=== PATIENT | female | born 1970 | race Caucasian/White ===

== ENCOUNTER 2019-08-21 12:01 | Outpatient (CLI) | payer BC ==
[~2019-08-21] VITALS: Ht 162.6 cm; Wt 97.7 kg
[2019-08-21] MEDS ORDERED: bcp PO (13:15)
[2019-08-21] MEDS ORDERED: VORT10TA PO (13:15)
[2019-08-21] MEDS ORDERED: ROPI0.5T4 PO (13:15)
[2019-08-21] MEDS ORDERED: ADAL40PE2 SQ (13:15)
[2019-08-21] MEDS ORDERED: PANT40TA3 PO (13:15)
== END 2019-08-21 14:03 | disposition home or self-care (01) ==
LOC: PREOP 12:01
PROVIDERS: ATTEND Otolaryngology Otolaryngology/Facial Plastic Surgery
DX: Z01.818 Encounter for other preprocedural examination (principal)

== ENCOUNTER 2019-08-21 12:05 | Outpatient (CLI) | payer BC ==
[2019-08-21] MEDS ORDERED: NS 100 ML (IVPB) BAG IV ONE (12:15)
[2019-08-21] MEDS ORDERED: IOHEXOL 350 MG/ML 100 ML (OMNIPAQUE 350) VIAL IV ONE (12:15)
[2019-08-21] MEDS ORDERED: HOLD METFORMIN - RECEIVED CONTRAST 20 ML VIAL IV SCH (12:15)
[2019-08-21] MEDS ORDERED: CATHETER FLUSH 10 ML SYR IV PRN (12:15)
[2019-08-21 12:37] LABS: BASOPHILS # (AUTO) 0.1 10^3/uL (0.0-0.1); BASOPHILS % (AUTO) 0 % (0-10); EOSINOPHILS # (AUTO) 0.2 10^3/uL (0.0-0.3); EOSINOPHILS % (AUTO) 1 % (0-10); HEMATOCRIT 42 % (35-52); HEMOGLOBIN 14.2 G/DL (11.5-16.0); LYMPHOCYTES # (AUTO) 3.2 X 10^3 (1.0-4.0); LYMPHOCYTES % (AUTO) 25 % (12-44); MEAN CORPUSCULAR HEMOGLOBIN 31 PG (25-34); MEAN CORPUSCULAR HGB CONC 34 G/DL (32-36); MEAN CORPUSCULAR VOLUME 90 FL (80-99); MEAN PLATELET VOLUME 9.7 FL (7.4-10.4); MONOCYTES # (AUTO) 0.8 X 10^3 (0.0-1.0); MONOCYTES % (AUTO) 6 % (0-12); NEUTROPHILS # (AUTO) 8.4 X 10^3 (1.8-7.8); NEUTROPHILS % (AUTO) 67 % (42-75); PLATELET COUNT 279 10^3/uL (130-400); RED CELL DISTRIBUTION WIDTH 13.1 % (10.0-14.5); WHITE BLOOD COUNT 12.5 10^3/uL (4.3-11.0)
[2019-08-21 12:53] LABS: BUN/CREATININE RATIO 11; CALCIUM 8.8 MG/DL (8.5-10.1); CARBON DIOXIDE 21 MMOL/L (21-32); CHLORIDE 108 MMOL/L (98-107); CREATININE SERUM 0.76 MG/DL (0.60-1.30); GFR ESTIMATED > 60; GLUCOSE 125 MG/DL (70-105); POTASSIUM 3.7 MMOL/L (3.6-5.0); SODIUM 139 MMOL/L (135-145)
--- NOTE | 2019-08-21 12:55 | Diagnostic Imaging Report ---
Indication: Nasal mass. Time of exam 12:58 PM No prior studies are available for comparison. The heart size is normal. The pulmonary vascularity is unremarkable. The lungs are clear. No infiltrate, effusion or pneumothorax is detected. Impression: No acute cardiopulmonary process is detected. Dictated by: Dictated on workstation # [id number]
[2019-08-21] MEDS ORDERED: VORT10TA PO (13:15)
[2019-08-21] MEDS ORDERED: ADAL40PE2 SQ (13:15)
[2019-08-21] MEDS ORDERED: ROPI0.5T4 PO (13:15)
[2019-08-21] MEDS ORDERED: PANT40TA3 PO (13:15)
[2019-08-21] MEDS ORDERED: bcp PO (13:15)
--- NOTE | 2019-08-21 13:15 | Diagnostic Imaging Report ---
PROCEDURE: CT Sinus w/o Contrast. TECHNIQUE: Multiple contiguous axial images were obtained through the sinuses without the use of intravenous contrast. Coronal reformations were performed. All CT scans use one or more of the following dose optimizing techniques: automated exposure control, MA and/or KvP adjustment based on a patient size and exam type, or iterative reconstruction. INDICATION: Nasal mass. Severe otitis media. COMPARISON: None FINDINGS: No evidence of mucosal thickening or fluid levels in the paranasal sinuses. The ostiomeatal complexes are patent. The sphenoethmoid and frontoethmoid recesses are patent and unremarkable. Bilateral iram bullosa of the middle turbinates is noted. Fluid is seen throughout the right mastoid air cells and right middle ear. The left mastoid air cells are well pneumatized. Retained secretions are seen within the nasopharynx. No discrete soft tissue mass is visualized. Prominent cervical lymph nodes are seen bilaterally. The bony nasal septum is slightly deviated to the left. No acute facial fractures. The globes and orbits are symmetric and unremarkable. Included intracranial contents show no acute abnormalities. IMPRESSION: 1. Otomastoiditis on the right. No evidence of coalescent mastoiditis. No associated soft tissue component is seen. 2. Retained secretions within the nasopharynx. 3. No evidence of acute sinusitis. Dictated by: Dictated on workstation # [id number]
== END 2019-08-21 13:35 ==
LOC: RAD 12:05
PROVIDERS: ATTEND Otolaryngology Otolaryngology/Facial Plastic Surgery
DX: H65.90 Unspecified nonsuppurative otitis media, unspecified ear (principal); H92.09 Otalgia, unspecified ear; H70.91 Unspecified mastoiditis, right ear; J34.9 Unspecified disorder of nose and nasal sinuses
CPT/HCPCS: 36415; 70487; 71045; 80048; 85025

== ENCOUNTER 2019-08-23 09:25 | Day surgery (SDC) | payer BC ==
[~2019-08-23] VITALS: Ht 162.5 cm; Wt 97.7 kg
[2019-08-23] VITALS (10 sets, daily range): BP systolic 101–139; BP diastolic 53–85
[~2019-08-23 09:25] MED LIST: ADAL40PE2 SQ; HOLD METFORMIN - RECEIVED CONTRAST 20 ML VIAL IV SCH; IOHEXOL 350 MG/ML 100 ML (OMNIPAQUE 350) VIAL IV ONE; NS 100 ML (IVPB) BAG IV ONE; PANT40TA3 PO; ROPI0.5T4 PO; VORT10TA PO; bcp PO
[2019-08-23] MEDS ORDERED: LACTATED RINGERS 1,000 ML IV PRN (09:41)
[2019-08-23] MEDS ORDERED: proPOfol 200 MG/20 ML (DIPRIVAN) VIAL IV ONE (10:51)
[2019-08-23] MEDS ORDERED: ROCURONIUM 10 MG/ML 5 ML SYRINGE IV ONE (10:51)
[2019-08-23] MEDS ORDERED: ONDANSETRON 4 MG/2 ML (SDV) Z0FRAN ONE (10:51)
[2019-08-23] MEDS ORDERED: fentaNYL INJECTION 100 MCG/2 ML AMP ONE (10:52)
[2019-08-23] MEDS ORDERED: LIDOCAINE PF 2% 5 ML (XYLOCAINE) VIAL ONE (10:52)
[2019-08-23] MEDS ORDERED: MIDAZOLAM 2 MG/2 ML (VERSED) VIAL ONE (10:52)
[2019-08-23] MEDS ORDERED: LIDOCAINE/EPI 1%-1:100,000 (XYLOCAINE) 20ML ONE (11:03)
[2019-08-23] MEDS ORDERED: MUPIROCIN 2% OINT 22 GM (BACTROBAN) TUBE ONE (11:03)
--- OUTSIDE RECORDS SUMMARY | 2019-08-23 11:03 | XMS REPORT ---
Author Lindsey Riley Organization [facility] Address [address] [place], [place] [id number] Care Team Providers Care Television Presenter Name Role Phone Rachael Cuellar PCP Kasi Colon PreferredProvider Allergies and Adverse Reactions Name Reaction Notes NO KNOWN DRUG ALLERGIES Plan of Treatment Planned Activity Comments Planned Date Planned Time Plan/Goal Basic metabolic profile 05/13/2015 12:00 AM Chronic hoarseness and nasal cingestion 07/24/2019 1 0:30 AM Medications Active Name Start Date Estimated Completion Date SIG Co mments Humira Pen 40 mg/0.8 mL subcutaneous pen injector kit inject 0.8 milliliter (40 mg) by subcutaneous route every 2 weeks Lialda 1.2 gram oral tablet,delayed release (DR/EC) 08/01/2016 TAKE 4 TABS BY MOUTH DAILY WITH BREAKFAST. SWALLOW WHOLE; DO NOT BREAK, CHEW OR CRUSH. ADMINISTER WITH A MEAL. pantoprazole 40 mg oral tablet,delayed release (DR/EC) 02/28/2019 TAKE 1 TABLET BY MOUTH ONCE A DAY mupirocin 2 % topical ointment 03/20/2019 a pply to affected area by external route 2 times a day Apri 0.15-0.03 mg oral tablet 06/10/2019 ta ke 1 tablet by oral route once daily for 28 days fluticasone propionate 50 mcg/actuation nasal spray,suspension spray 1 - 2 sprays (50 - 100 mcg) in each nostril by intranasal route once daily as needed Trintellix 10 mg oral tablet 06/14/2019 06/08/2020 sirena e 1 tablet (10 mg) by oral route once daily at the same time each day for 30 days montelukast 10 mg oral tablet 06/14/2019 ta ke 1 tablet (10 mg) by oral route once daily in the evening Sudogest 30 mg oral tablet 07/05/2019 take 2 tablets (60 mg) by oral route every 6 hours as needed phentermine 37.5 mg oral tablet 07/08/2019 08/07/2019 take 1 tablet (37.5 mg) by oral route once daily before breakfast for 30 days ropinirole 0.5 mg oral tablet 07/31/2019 ta ke 1 tablet (0.5 mg) by oral route 1-3 hours before bedtime Augmentin 875-125 mg oral tablet 08/05/2019 08/12/2019 take 1 tablet by oral route every 12 hours for 7 days Name Start Date Expiration Date SIG Comments Bactrim DS 800-160 mg oral tablet 07/21/2009 07/31/2009 take 1 tablet by oral route every 12 hours for 10 days Cipro 250 mg oral tablet 02/19/2010 02/22/2010 take 1 tablet (250 mg) by oral route 2 times a day for 3 days phentermine 37.5 mg oral tablet 07/21/2010 08/20/2010 take 1 tablet (37.5 mg) by oral route once daily before breakfast for 30 daysDx: Short term weight loss Cipro 500 mg oral tablet 07/21/2010 07/28/2010 take 1 tablet (500 mg) by oral route every 12 hours for 7 days Bactrim DS 800-160 mg oral tablet 09/23/2010 10/03/2010 take 1 tablet by oral route every 12 hours for 10 days phentermine 37.5 mg oral tablet 06/21/2012 07/21/2012 take 1 tablet (37.5 mg) by oral route once daily before breakfast for 30 daysDx: Short term weight loss Tri-Sprintec (28) 0.18/0.215/0.25 mg-35 mcg (28) oral tablet 06/21/2012 07/19/2012 TAKE 1 TABLET BY MOUTH ONCE A DAY Provera 10 mg oral tablet 09/13/2013 09/18/2013 take 1 tablet (10 mg) by oral route once daily for 5 days metronidazole 500 mg oral tablet 10/01/2013 take 4 tablets (2 gram) by oral route once Cortenema 100 mg/60 mL rectal enema 12/27/2013 12/31/2013 insert 60 milliliters (100 mg) by rectal route once daily for 4 days Reglan 10 mg oral tablet 02/10/2014 02/15/2014 take 1 tablet (10 mg) by oral route 4 times per day 30 minutes before meals and at bedtime for 5 days Apriso 0.375 gram oral capsule,extended release 24hr 02/24/2014 03/26/2014 take 4 capsules (1,500 mg) by oral route once daily in the morning for 30 days Azulfidine 500 mg oral tablet 04/07/2014 05/05/2014 ta ke 2 tablets by oral route 3 times a day for 14 days Cipro 500 mg oral tablet 04/11/2014 04/16/2014 take 1 tablet (500 mg) by oral route every 12 hours for 5 days Bactrim DS 800-160 mg oral tablet 05/08/2014 05/15/2014 take 1 tablet by oral route every 12 hours for 7 days omeprazole 40 mg oral capsule,delayed release(DR/EC) 03/23/2015 07/21/2015 take 1 capsule (40 mg) by oral route once daily before a meal for 30 days Switched to Pantoprazole zolpidem 5 mg oral tablet 04/14/2015 05/14/2015 take 1 .5 tablets by oral route once a day (at bedtime) for 30 days Zithromax Z-Jona 250 mg oral tablet 05/19/2015 05/24/2015 take 2 tablets (500 mg) by oral route once daily for 1 day then 1 tablet (250 mg) by oral route once daily for 4 days metoclopramide HCl 10 mg oral tablet 11/24/2015 12/24/2015 take 1 tablet by oral route 3 times a day (before meals) for 30 days Flagyl 500 mg oral tablet 12/08/2015 12/13/2015 take 1 tablet (500 mg) by oral route every 12 hours for 5 days Ciloxan 0.3 % ophthalmic drops 02/05/2016 02/07/2016 i nstill 2 drops into affected eye(s) by ophthalmic route 4 times a day for 5 days amoxicillin-pot clavulanate 500-125 mg oral tablet 06/15/2016 06/25/2016 take 1 tablet by oral route every 12 hours for 10 days Trintellix 10 mg oral tablet 11/01/2016 12/01/2016 sirena e 1 tablet (10 mg) by oral route once daily at the same time each day for 30 days Xanax 0.5 mg oral tablet 11/01/2016 12/01/2016 12 to 1 twice daily as needed for anxiety must last 30 days Bactrim DS 800-160 mg oral tablet 01/31/2017 02/14/2017 take 1 tablet by oral route every 12 hours for 14 days phentermine 37.5 mg oral tablet 05/08/2017 06/07/2017 take 1 tablet (37.5 mg) by oral route once daily before breakfast for 30 days sulfamethoxazole-trimethoprim 800-160 mg oral tablet 12/25/2017 01/01/2018 take 1 tablet by oral route every 12 hours for 7 days prednisone 20 mg oral tablet 03/11/2018 03/16/2018 sirena e 2 tablet by oral route once daily amoxicillin-pot clavulanate 500-125 mg oral tablet 04/09/2018 04/16/2018 take 1 tablet by oral route every 12 hours for 7 days nystatin 100,000 unit/mL oral suspension 05/11/2018 018 take 5 milliliters (500,000 unit) by oral route 4 times per day for 14 days amoxicillin 500 mg oral tablet 05/18/2018 05/25/2018 t blanca 1 tablet (500 mg) by oral route every 12 hours for 7 days Vyvanse 50 mg oral capsule 06/14/2018 07/14/2018 take 1 capsule (50 mg) by oral route once daily in the morning for 30 days Zofran 4 mg oral tablet 07/10/2018 07/11/2018 take 1-2 tablets by oral route every 8 hours for 1 day Ciloxan 0.3 % ophthalmic (eye) drops 08/06/2018 08/08/2018 instill 2 drops into affected eye(s) by ophthalmic route 4 times a day for 5 days montelukast 10 mg oral tablet 09/24/2018 10/24/2018 ta ke 1 tablet (10 mg) by oral route once daily in the evening for 30 days benzonatate 200 mg oral capsule 10/25/2018 take 1 capsule (200 mg) by oral route 3 times per day azithromycin 250 mg oral tablet 05/06/2019 05/11/2019 take 2 tablets (500 mg) by oral route once daily for 1 day then 1 tablet (250 mg) by oral route once daily for 4 days Augmentin 500-125 mg oral tablet 05/31/2019 06/07/2019 take 1 tablet by oral route every 12 hours for 7 days loratadine 10 mg oral tablet 06/13/2019 07/13/2019 sirena e 1 tablet (10 mg) by oral route once daily for 30 days penicillin V potassium 500 mg oral tablet 06/18/2019 020 take 1 tablet (500 mg) by oral route every 12 hours for 7 days Discontinued Name Start Date Discontinued Date SIG Comments Lexapro 10 mg oral tablet 07/21/2009 10/27/2009 take 1 tablet (10 mg) by oral route once daily no longer taking phentermine 37.5 mg oral tablet 01/11/2010 02/17/2010 take 1 tablet (37.5 mg/day) by oral route once daily before breakfast for 30 daysDX: Short term weight loss Bactrim DS 800-160 mg oral tablet 02/17/2010 02/19/2010 take 1 tablet by oral route every 12 hours for 7 days Paxil 20 mg oral tablet 02/17/2010 07/13/2010 take 1 t ablet (20 mg) by oral route once daily for 30 days phentermine 37.5 mg oral tablet 05/25/2010 07/13/2010 take 1 tablet (37.5 mg) by oral route once daily before breakfast Augmentin 875-125 mg oral tablet 07/13/2010 09/23/2010 take 1 tablet by oral route every 12 hours Medrol (Jona) 4 mg oral tablets,dose pack 07/13/2010 09/23/2010 take as directed [id number] 3.5-10,000-10 mg-unit-mg/mL opht halmic drops,suspension 07/13/2010 09/23/2010 instill 3 drops into affecte d eye(s) by ophthalmic route 3 times a day bupropion HCl 150 mg oral tablet extended release 24 hr 1 11/02/2010 take 1 tablet (150 mg) by oral route once daily Cymbalta 30 mg oral capsule,delayed release(DR/EC) 11/02/2010 07/04/2011 Take 1 capsule daily for 2 weeks then increase to 60 mg daily "never started taking" Claritin-D 12 Hour 5-120 mg oral tablet extended release 12 hr 05/24/2011 07/04/2011 take 1 tablet by oral route once a day (in the morning ) as needed phentermine 37.5 mg oral tablet 05/24/2011 07/04/2011 take 1 tablet (37.5 mg) by oral route once daily before breakfast for 30 daysDx: Short term weight loss cardiac murmur Diflucan 150 mg oral tablet 09/30/2011 take 1 tablet (150 mg) by oral route once sertraline 100 mg oral tablet 11/07/2011 11/29/2011 ta ke 1 tablet (100 mg) by oral route once daily for 30 days citalopram 40 mg oral tablet 01/02/2012 06/21/2012 sirena e 1 tablet (40 mg) by oral route once daily for 30 days Cipro 500 mg oral tablet 01/11/2012 10/15/2012 take 1 tablet (500 mg) by oral route 2 times per day promethazine 25 mg oral tablet 02/02/2012 10/15/2012 t blanca 1 tablet (25 mg) by oral route every 6 hours as needed Cymbalta 30 mg oral capsule,delayed release(DR/EC) 06/21/2012 10/15/2012 take 1 capsule by oral route daily for 7 days Cymbalta 60 mg oral capsule,delayed release(DR/EC) 06/21/2012 10/15/2012 take 1 capsule (60 mg) by oral route once daily for 21 days "I stopped it when I was sick" bupropion HCl 150 mg oral tablet extended release 24 hr 3 07/08/2013 take 1 tablet (150 mg) by oral route once daily for 1 week then 2 tablets (300 mg) once daily Dilantin Extended 100 mg oral capsule 10/24/2012 07/08/2013 take 2 capsule (100 mg) by oral route 3 times a day cyclobenzaprine 10 mg oral tablet 04/29/2013 07/08/2013 take 1 tablet (10 mg) by oral route 2 times per day as needed Dexedrine Spansule 10 mg oral capsule, extended release 09/10/2013 09/10/2013 take 1 capsule (10 mg) by oral route once daily $100 per month can't afford it phentermine 37.5 mg oral tablet 09/10/2013 10/01/2013 take 1 tablet (37.5 mg) by oral route once daily before breakfast for 30 days diethylpropion 75 mg oral tablet extended release 11/04/2013 09/09/2014 take 1 tablet (75 mg) by oral route once daily , in [facility] Dx: Short term weight loss prednisone 10 mg oral tablet 02/13/2014 02/24/2014 sirena e 4 tablets by oral route daily for 3 days, then 3 tablets QD for 3 days, then 1 tablet BID prednisone 10 mg oral tablet 02/24/2014 09/09/2014 Sirena e 4 tablets (40 mg) once a day for 7 days, then take 3 tablets (30 mg) once a day for 7 days, then take 2 tablets (20 mg) once a day fo promethazine 25 mg oral tablet 04/09/2014 09/09/2014 t blanca 1 tablet (25 mg) by oral route every 6 hours as needed Lomotil 2.5-0.025 mg oral tablet 04/09/2014 09/09/2014 take 2 tablets (5 mg) by oral route 3 times per day as needed guaifenesin 400 mg oral tablet 05/08/2014 09/09/2014 t blanca 1 tablet (400 mg) by oral route every 4 hours as needed Lialda 1.2 gram oral tablet,delayed release (DR/EC) 04/13/2015 take 4 tablets (4.8 gram) by oral route once daily with a meal Zantac oral 04/13/2015 one tablet by oral route twi ce daily Contrave 8-90 mg oral tablet extended release 09/09/2014 take 1 tab by mouth in am 7 days 1 tab BID 7 days 2 tabs am and 1 tab pm 7 days 2 tabs BID Bactrim DS 800-160 mg oral tablet 10/30/2014 03/02/2015 take 1 tablet by oral route every 12 hours clotrimazole 1 % topical cream 12/08/2014 03/02/2015 a pply to the affected and surrounding areas of skin by topical route 2 times per day in the morning and evening alprazolam 0.25 mg oral tablet 02/12/2015 02/24/2016 t blanca 1 tablet (0.25 mg) by oral route once a day as needed Tri-Linyah 0.18/0.215/0.25 mg-35 mcg (28) oral tablet 03/07/2015 11/30/2015 TAKE 1 TABLET BY MOUTH ONCE A DAY nystatin 100,000 unit/gram topical powder 05/13/2015 6/27/2 016 apply to the affected area(s) by topical route 3 times per day triamcinolone acetonide 0.1 % topical ointment 05/13/2015 apply a thin layer to the affected area(s) by topical route 2 times per day gentamicin 0.3 % ophthalmic drops 01/28/2016 02/05/2016 instill 2 drops into affected eye(s) by ophthalmic route 4 times a day sertraline 50 mg oral tablet 02/24/2016 03/07/2016 sirena e 0.5 tablet (25 mg) by oral route once daily for 6 days then 1 tablet (50 mg) once a day Decreased Libido Levaquin 500 mg oral tablet 05/02/2016 06/15/2016 take 1 tablet (500 mg) by oral route once daily fexofenadine-pseudoephedrine 60-120 mg oral tablet ext ended release 12 hr 05/02/2016 06/15/2016 take 1 tablet by oral route 2 times per day as needed venlafaxine 150 mg oral capsule,extended release 24hr 05/02/2016 06/15/2016 take 1 capsule (150 mg) by oral route once daily for 30 days "didn't work" fluticasone 50 mcg/actuation nasal spray,suspension 06/15/2016 08/16/2016 inhale 1 spray (50 mcg) in each nostril by intranasal route 2 times per day prednisone 20 mg oral tablet 06/15/2016 07/04/2016 sirena e 1 tablet (20 mg) by oral route once daily Contrave 8-90 mg oral tablet extended release 07/04/2016 take 1 tab by mouth in am 7 days 1 tab BID 7 days 2 tabs am and 1 tab pm 7 days 2 tabs BID "caused me to be sick at my stomach" montelukast 10 mg oral tablet 08/16/2016 03/14/2017 ta ke 1 tablet (10 mg) by oral route once daily in the evening fluticasone 50 mcg/actuation nasal spray,suspension 01/31/2017 03/14/2017 inhale 1 spray (50 mcg) in each nostril by intranasal route 2 times per day cetirizine 10 mg oral tablet 01/31/2017 03/14/2017 sirena e 2 tablets (20 mg) by oral route once daily at bedtime for 1 week then 1 tablet daily as needed pseudoephedrine HCl 120 mg oral tablet extended release 04/21/20 17 12/25/2017 take 1 tablet (120 mg) by oral route every 12 hours as needed mesalamine 1.2 gram oral tablet,delayed release (DR/EC) 8 04/09/2018 TAKE 4 TABLET BY MOUTH EVERY DAY WITH BREAKFAST. SWALLOW WHOLE; DO NOT BREAK, CHEW OR CRUSH. nystatin 100,000 unit/gram topical cream 12/25/2017 03/11/20 18 apply to the affected area(s) by topical route 2 times per day says she doesnt use Tri-Sprintec (28) 0.18/0.215/0.25 mg-35 mcg (28) oral tablet 02/0404/09/2018 TAKE 1 TABLET BY MOUTH DAILY Heavy periods with severe cramps Zoloft 50 mg oral tablet 03/20/2018 05/11/2018 take 1 tablet (50 mg) by oral route once daily for 30 days GOing to taking 1.5 tablet of 100 mg guaifenesin 600 mg oral tablet extended release 12hr 04/09/2018 05/11/2018 take 1 tablet (600 mg) by oral route every 12 hours Tri-Sprintec (28) 0.18/0.215/0.25 mg-35 mcg (28) oral tablet 04/30/2018 05/11/2018 TAKE 1 TABLET BY MOUTH DAILY Zoloft 100 mg oral tablet 05/11/2018 08/28/2018 take 1 .5 tablets by oral route daily for 90 days Not working well anymore gabapentin 300 mg oral capsule 05/11/2018 08/28/2018 t blanca 1 capsule (300 mg) by oral route at bedtime naproxen 500 mg oral tablet 06/07/2018 08/28/2018 take 1 tablet by oral route every 12 hours as needed with food guaifenesin 600 mg oral tablet extended release 12hr 06/19/2018 07/11/2018 take 1 tablet (600 mg) by oral route every 12 hours amoxicillin-pot clavulanate 500-125 mg oral tablet 06/29/2018 07/11/2018 take 1 tablet by oral route every 12 hours Lomotil 2.5-0.025 mg oral tablet 07/11/2018 08/28/2018 take 2 tablets (5 mg) by oral route 3 times per day prednisone 20 mg oral tablet 07/11/2018 08/28/2018 sirena e 2 tablets (40 mg) by oral route once daily x 3 days then 1 tablet daily x 2 days Debrox 6.5 % otic (ear) drops 08/29/2018 10/31/2018 in still 5 drops into affected ear(s) by otic route 2 times per day cetirizine 10 mg oral tablet 09/24/2018 10/31/2018 sirena e 1 tablet by oral route every 12 hours as needed paroxetine HCl 20 mg oral tablet 10/31/2018 06/14/2019 take 2.5 tablets by oral route daily for 90 days gabapentin 300 mg oral capsule 01/14/2019 03/20/2019 t blanca 1 capsule (300 mg) by oral route at bedtime phentermine 37.5 mg oral tablet 01/14/2019 03/20/2019 take 1 tablet (37.5 mg) by oral route once daily before breakfast for 30 daysDx: Short term weight loss alprazolam 0.25 mg oral tablet 03/25/2019 06/14/2019 t blanca 1 tablet by oral route daily as needed for severe anxiety promethazine 6.25 mg/5 mL oral syrup 05/06/2019 05/31/2019 take 5-10 milliliters by oral route every 6 hours as needed Problem List Description Status Onset Anxiety disorder Active Depressive Disorder Active Colitis Active Abdominal pain Active Colonic Polyps, Personal History of Active 2008 Nicotine Addiction Active 12/06/2015 Medication management Active 11/03/2016 Decreased libido without sexual dysfunction Active 11/03/2016 Mood swings Active 11/03/2016 Morbid obesity due to excess calories Active Environmental and seasonal allergies Active 06/2016 NATASHA (generalized anxiety disorder) Active 11/29 Moderate episode of recurrent major depressive disorder Acti ve 09/16/2017 Attention deficit disorder (ADD) without hyperactivity Activ e 09/16/2017 Crohn disease Active 07/11/2018 Vital Signs Date Time BP-Sys(mm[Hg] BP-Yesenia(mm[Hg]) HR(bpm) RR(rpm) Temp WT HT HC BMI BSA BMI Percentile O2 Sat(%) 07/24/2019 10:27:00 AM 122 mm[Hg] 78 mm[Hg] 113 {beats}/min 18 rpm 98.7 F 220.125 lbs 64 in 37.784 kg/m2 2.1234 m2 98 % 07/08/2019 9:02:00 AM 132 mm[Hg] 80 mm[Hg] 96 {beats}/min 18 rpm 98.1 F 222 lbs 64 in 38.11 kg/m2 2.13 m2 97 % 06/14/2019 9:10:00 AM 114 mm[Hg] 70 mm[Hg] 88 {beats}/min 20 rpm 98.4 F 222 lbs 64 in 38.1058 kg/m2 2.1324 m2 98 % 05/31/2019 10:14:00 AM 132 mm[Hg] 70 mm[Hg] 92 {beats}/min 18 rpm 97.9 F 221 lbs 64 in 37.93 kg/m2 2.13 m2 98 % 03/20/2019 9:03:00 AM 132 mm[Hg] 78 mm[Hg] 95 {beats}/min 16 rpm 98.6 F 221 lbs 64 in 37.9342 kg/m2 2.1276 m2 97 % 01/14/2019 10:39:00 AM 132 mm[Hg] 60 mm[Hg] 97 {beats}/min 20 rpm 98.1 F 214 lbs 64 in 36.73 kg/m2 2.09 m2 8 % 12/24/2018 12:44:00 PM 118 mm[Hg] 78 mm[Hg] 91 {beats}/min 18 rpm 98.2 F 218.5 lbs 64 in 37.5051 kg/m2 2.1155 m2 97 % 11/16/2018 11:06:00 AM 122 mm[Hg] 64 mm[Hg] 107 {beats}/min 97.9 F 215 lbs 64 in 36.90 kg/m2 2.10 m2 95 % 10/31/2018 8:02:00 AM 128 mm[Hg] 60 mm[Hg] 82 {beats}/min 18 rpm 98.8 F 214 lbs 64 in 36.7326 kg/m2 2.0936 m2 99 % 08/28/2018 8:48:00 AM 130 mm[Hg] 66 mm[Hg] 87 {beats}/min 20 rpm 98.8 F 213 lbs 64 in 36.56 kg/m2 2.09 m2 97 % 07/11/2018 9:58:00 AM 128 mm[Hg] 88 mm[Hg] 96 {beats}/min 18 rpm 97.9 F 204.375 lbs 64 in 35.0805 kg/m2 2.046 m2 98 % 06/19/2018 8:54:00 AM 126 mm[Hg] 62 mm[Hg] 94 {beats}/min 18 rpm 98.6 F 210 lbs 64 in 36.05 kg/m2 2.07 m2 96 % 05/11/2018 8:46:00 AM 130 mm[Hg] 66 mm[Hg] 88 {beats}/min 20 rpm 98.8 F 206 lbs 64 in 35.3595 kg/m2 2.0541 m2 99 % 04/09/2018 9:08:00 AM 130 mm[Hg] 66 mm[Hg] 91 {beats}/min 18 rpm 98.6 F 202 lbs 64 in 34.67 kg/m2 2.03 m2 96 % 03/11/2018 1:45:00 PM 114 mm[Hg] 70 mm[Hg] 87 {beats}/min 18 rpm 98.1 F 201.5 lbs 99 % 12/25/2017 8:40:00 AM 122 mm[Hg] 78 mm[Hg] 18 rpm 97.9 F 201.5 lbs 64 in 34.587 kg/m2 2.0315 m2 12/11/2017 10:04:00 AM 134 mm[Hg] 74 mm[Hg] 78 {beats}/min 18 rpm 98.2 F 201 lbs 64 in 34.50 kg/m2 2.03 m2 98 % 09/12/2017 4:19:00 PM 104 mm[Hg] 70 mm[Hg] 80 {beats}/min 18 rpm 98.4 F 203 lbs 98 % 07/18/2017 10:07:00 AM 118 mm[Hg] 82 mm[Hg] 82 {beats}/min 18 rpm 97.9 F 206 lbs 64 in 35.3595 kg/m2 2.0541 m2 98 % 05/08/2017 9:35:00 AM 200 lbs 03/14/2017 9:29:00 AM 128 mm[Hg] 78 mm[Hg] 91 {beats}/min 20 rpm 98.4 F 208 lbs 64 in 35.7028 kg/m2 2.0641 m2 98 % 02/01/2017 6:28:00 AM 118 mm[Hg] 78 mm[Hg] 80 {beats}/min 16 rpm 98.6 F 209 lbs 64 in 35.87 kg/m2 2.07 m2 98 % 11/28/2016 11:12:00 AM 108 mm[Hg] 74 mm[Hg] 78 {beats}/min 16 rpm 98.2 F 212 lbs 64 in 36.3893 kg/m2 2.0838 m2 98 % 11/01/2016 11:17:00 AM 132 mm[Hg] 84 mm[Hg] 94 {beats}/min 18 rpm 97.4 F 210 lbs 64 in 36.05 kg/m2 2.07 m2 98 % 08/16/2016 2:04:00 PM 130 mm[Hg] 66 mm[Hg] 96 {beats}/min 20 rpm 98.3 F 212 lbs 64 in 36.3893 kg/m2 2.0838 m2 98 % 07/04/2016 9:37:00 AM 130 mm[Hg] 76 mm[Hg] 76 {beats}/min 18 rpm 98.2 F 212 lbs 64 in 36.39 kg/m2 2.08 m2 97 % 06/15/2016 9:44:00 AM 128 mm[Hg] 72 mm[Hg] 80 {beats}/min 16 rpm 98 F 208 lbs 64 in 35.7028 kg/m2 2.0641 m2 98 % 05/02/2016 2:41:00 PM 120 mm[Hg] 72 mm[Hg] 88 {beats}/min 16 rpm 98 F 208 lbs 64 in 35.70 kg/m2 2.06 m2 99 % 02/24/2016 10:00:00 AM 124 mm[Hg] 72 mm[Hg] 81 {beats}/min 17 rpm 97 F 202 lbs 66 in 32.6033 kg/m2 2.0656 m2 97 % 11/30/2015 1:30:00 PM 130 mm[Hg] 76 mm[Hg] 16 rpm 98.4 F 194 lbs 66 i n 31.31 kg/m2 2.02 m2 100 % 11/24/2015 11:46:00 AM 112 mm[Hg] 84 mm[Hg] 85 {beats}/min 20 rpm 194 lbs 64 in 33.2997 kg/m2 1.9934 m2 98 % 05/13/2015 2:45:00 PM 120 mm[Hg] 74 mm[Hg] 103 {beats}/min 18 rpm 97.6 F 190 lbs 64 in 32.61 kg/m2 1.97 m2 97 % 04/13/2015 3:10:00 PM 122 mm[Hg] 62 mm[Hg] 84 {beats}/min 18 rpm 98.9 F 187 lbs 64 in 32.0981 kg/m2 1.9571 m2 98 % 03/02/2015 10:30:00 AM 116 mm[Hg] 84 mm[Hg] 76 {beats}/min 20 rpm 96.3 F 100 % 02/12/2015 3:36:00 PM 124 mm[Hg] 70 mm[Hg] 85 {beats}/min 16 rpm 98.5 F 182.25 lbs 64 in 31.2828 kg/m2 1.9321 m2 99 % 09/09/2014 8:31:00 AM 134 mm[Hg] 70 mm[Hg] 90 {beats}/min 16 rpm 98 F 195 lbs 64 in 33.47 kg/m2 2.00 m2 100 % 02/24/2014 12:01:00 PM 106 mm[Hg] 74 mm[Hg] 85 {beats}/min 16 rpm 97.9 F 97 % 12/30/2013 1:11:00 PM 116 mm[Hg] 76 mm[Hg] 82 {beats}/min 16 rpm 96.2 F 99 % 11/25/2013 10:52:00 AM 112 mm[Hg] 76 mm[Hg] 73 {beats}/min 16 rpm 97.5 F 195 lbs 64 in 33.4713 kg/m2 1.9985 m2 100 % 11/04/2013 9:34:00 AM 136 mm[Hg] 78 mm[Hg] 74 {beats}/min 16 rpm 97.8 F 195 lbs 64 in 33.47 kg/m2 2.00 m2 100 % 10/21/2013 9:41:00 AM 130 mm[Hg] 76 mm[Hg] 84 {beats}/min 98.6 F 19 5 lbs 64 in 33.4713 kg/m2 1.9985 m2 10/01/2013 9:19:00 AM 132 mm[Hg] 86 mm[Hg] 84 {beats}/min 98.5 F 19 6 lbs 64 in 33.64 kg/m2 2.00 m2 09/10/2013 8:04:00 AM 128 mm[Hg] 78 mm[Hg] 79 {beats}/min 20 rpm 98 F 192 lbs 64 in 32.9564 kg/m2 1.9831 m2 100 % 07/08/2013 8:30:00 AM 122 mm[Hg] 64 mm[Hg] 82 {beats}/min 18 rpm 97.5 F 191.125 lbs 64 in 32.81 kg/m2 1.98 m2 98 % 02/18/2013 8:09:00 AM 130 mm[Hg] 72 mm[Hg] 70 {beats}/min 18 rpm 99.5 F 177 lbs 64 in 30.3817 kg/m2 1.904 m2 98 % 10/24/2012 8:36:00 AM 132 mm[Hg] 78 mm[Hg] 70 {beats}/min 20 rpm 99.9 F 174 lbs 65 in 28.95 kg/m2 1.90 m2 10/15/2012 1:49:00 PM 130 mm[Hg] 72 mm[Hg] 70 {beats}/min 16 rpm 98.6 F 173 lbs 65 in 28.7884 kg/m2 1.8971 m2 06/21/2012 8:19:00 AM 115 mm[Hg] 70 mm[Hg] 83 {beats}/min 18 rpm 98.1 F 171.5 lbs 65 in 28.54 kg/m2 1.89 m2 97 % 04/20/2012 8:04:00 AM 128 mm[Hg] 70 mm[Hg] 72 {beats}/min 18 rpm 98.9 F 172 lbs 65 in 28.622 kg/m2 1.8916 m2 01/11/2012 8:07:00 AM 122 mm[Hg] 70 mm[Hg] 76 {beats}/min 18 rpm 98.2 F 176 lbs 65 in 29.29 kg/m2 1.91 m2 11/29/2011 8:20:00 AM 124 mm[Hg] 66 mm[Hg] 70 {beats}/min 18 rpm 99.1 F 175 lbs 65 in 29.1212 kg/m2 1.908 m2 09/30/2011 8:17:00 AM 124 mm[Hg] 70 mm[Hg] 70 {beats}/min 16 rpm 98.2 F 165 lbs 65 in 27.46 kg/m2 1.85 m2 07/04/2011 8:40:00 AM 132 mm[Hg] 70 mm[Hg] 76 {beats}/min 18 rpm 99.1 F 169 lbs 65 in 28.1228 kg/m2 1.875 m2 05/24/2011 8:05:00 AM 101 mm[Hg] 62 mm[Hg] 98 {beats}/min 98.5 F 167 lbs 65 in 27.79 kg/m2 1.86 m2 97 % 03/18/2011 8:01:00 AM 98 mm[Hg] 56 mm[Hg] 87 {beats}/min 18 rpm 97.2 F 167.562 lbs 98 % 01/14/2011 8:04:00 AM 128 mm[Hg] 72 mm[Hg] 76 {beats}/min 16 rpm 97.4 F 163.25 lbs 11/02/2010 3:45:00 PM 128 mm[Hg] 78 mm[Hg] 76 {beats}/min 18 rpm 99 F 158 lbs 65 in 26.2923 kg/m2 1.8129 m2 09/23/2010 8:24:00 AM 130 mm[Hg] 74 mm[Hg] 70 {beats}/min 16 rpm 98.4 F 162 lbs 65 in 26.96 kg/m2 1.84 m2 07/21/2010 8:17:00 AM 112 mm[Hg] 60 mm[Hg] 68 {beats}/min 18 rpm 97.5 F 165 lbs 65 in 27.4572 kg/m2 1.8527 m2 07/13/2010 10:34:00 AM 128 mm[Hg] 78 mm[Hg] 74 {beats}/min 18 rpm 98.3 F 165 lbs 05/25/2010 8:08:00 AM 122 mm[Hg] 78 mm[Hg] 68 {beats}/min 16 rpm 96.7 F 169.5 lbs 04/05/2010 11:30:00 AM 126 mm[Hg] 72 mm[Hg] 68 {beats}/min 16 rpm 97.1 F 179.5 lbs 65 in 29.8701 kg/m2 1.9324 m2 02/17/2010 3:30:00 PM 124 mm[Hg] 72 mm[Hg] 64 {beats}/min 16 rpm 97.6 F 181 lbs 01/11/2010 9:04:00 AM 122 mm[Hg] 70 mm[Hg] 64 {beats}/min 16 rpm 97.1 F 183.5 lbs 65 in 30.5357 kg/m2 1.9538 m2 11/25/2009 8:49:00 AM 128 mm[Hg] 78 mm[Hg] 70 {beats}/min 16 rpm 98.9 F 185 lbs 65 in 30.79 kg/m2 1.96 m2 10/27/2009 8:13:00 AM 130 mm[Hg] 72 mm[Hg] 78 {beats}/min 16 rpm 98 F 190 lbs 65 in 31.6173 kg/m2 1.9881 m2 08/27/2009 3:45:00 PM 92 mm[Hg] 68 mm[Hg] 192 lbs 07/21/2009 3:10:00 PM 128 mm[Hg] 88 mm[Hg] 72 {beats}/min 20 rpm 99.6 F 193 lbs 65 in 32.12 kg/m2 2.0037 m2 04/22/2009 9:09:00 AM 105 mm[Hg] 72 mm[Hg] 80 {beats}/min 18 rpm 98.1 F 198 lbs 65 in 32.9486 kg/m2 2.03 m2 Social History Name Description Comments Uses seatbelts Alcohol Current some day social use Tobacco Current every day smoker vape History of Procedures Date Ordered Description Order Status 04/13/2015 12:00 AM Bicillin CR, 1.2 million units [facility]# [id number] Reviewed 11/30/2015 12:00 AM COMPLETE CBC W/AUTO DIFF WBC Reviewed 11/30/2015 12:00 AM ASSAY THYROID STIM HORMONE Reviewed 11/30/2015 12:00 AM ASSAY OF TOTAL THYROXINE Reviewed 11/30/2015 12:00 AM ANTINUCLEAR ANTIBODIES KARLIE Reviewed 11/30/2015 12:00 AM COMPLETE CBC W/AUTO DIFF WBC Reviewed 12/08/2015 12:00 AM COMPLETE CBC W/AUTO DIFF WBC Reviewed 07/04/2011 12:00 AM CYTOPATH C/V THIN LAYER Reviewed 07/04/2011 12:00 AM COMPUTER DX MAMMOGRAM ADD-ON Reviewed 02/24/2016 12:00 AM TB INTRADERMAL TEST Reviewed 11/24/2015 12:[address] ABD & PELV W/CONTRAST Returned 11/24/2015 12:00 AM COMPLETE CBC W/AUTO DIFF WBC Returned 11/24/2015 12:00 AM COMPREHEN METABOLIC PANEL Returned 11/24/2015 12:00 AM RBC SED RATE AUTOMATED Returned 01/15/2012 12:00 AM DRAINAGE OF SKIN ABSCESS Reviewed 01/31/2017 12:00 AM THER/PROPH/DIAG INJ SC/IM Reviewed 01/31/2017 12:00 AM Decadron 8mg Injection Reviewed 01/31/2017 12:00 AM Depo-Medrol 80mg Injection Reviewed 07/18/2017 12:00 AM THER/PROPH/DIAG INJ SC/IM Reviewed 07/18/2017 12:00 AM Decadron 8mg Injection Reviewed 07/18/2017 12:00 AM Depo-Medrol 80mg Injection Reviewed 12/25/2017 12:00 AM TB TEST CELL IMMUN MEASURE Reviewed 10/15/2012 12:00 AM CYTOPATH C/V THIN LAYER Reviewed 10/15/2012 12:00 AM COMPLETE CBC AUTOMATED Reviewed 10/15/2012 12:00 AM MAMMOGRAM SCREENING Reviewed 03/11/2018 12:00 AM THER/PROPH/DIAG INJ SC/IM Reviewed 03/11/2018 12:00 AM Depo Medrol 40mg Injection, RHC Medicai d Reviewed 03/11/2018 12:00 AM Decadron 4mg Injection Reviewed 07/11/2018 12:00 AM Phenergan 50mg Injection Reviewed 08/28/2018 12:[address] MAXILLOFACIAL W/O CONTRAST MATERIAL R eviewed 08/29/2018 8:40 AM URINALYSIS AUTO W/O SCOPE Reviewed 08/28/2018 12:00 AM ASSAY OF ESTRADIOL Reviewed 08/28/2018 12:00 AM ASSAY OF GONADOTROPIN (LH) Reviewed 08/28/2018 12:00 AM ASSAY OF GONADOTROPIN (FSH) Reviewed 08/28/2018 12:00 AM ASSAY THYROID STIM HORMONE Reviewed 11/26/2018 12:00 AM NRV CNDJ TEST 9-10 STUDIES Reviewed 11/26/2018 12:00 AM MUSC TEST DONE W/N TEST COMP Reviewed 12/24/2018 12:00 AM Decadron 4mg Injection Reviewed 12/24/2018 12:00 AM Depo-Medrol 40mg Injection Reviewed 12/24/2018 12:00 AM THER/PROPH/DIAG INJ SC/IM Reviewed 01/14/2019 12:00 AM RADIOLOGIC EXAMINATION FOOT 2 VIEWS Revi ewed 09/10/2013 12:00 AM CYTOPATH C/V THIN LAYER Reviewed 09/10/2013 12:00 AM MAMMOGRAM SCREENING Reviewed 03/25/2019 12:00 AM Breast ultrasound Reviewed 03/25/2019 12:00 AM BREAST TOMOSYNTHESIS BI Reviewed 10/01/2013 12:00 AM CHYLMD TRACH DNA AMP PROBE Reviewed 10/01/2013 12:00 AM N.GONORRHOEAE DNA AMP PROB Reviewed 10/01/2013 12:00 AM SMEAR WET MOUNT SALINE/INK Reviewed 10/21/2013 12:00 AM ASSAY THYROID STIM HORMONE Reviewed 10/21/2013 12:00 AM ASSAY OF GONADOTROPIN (FSH) Reviewed 05/31/2019 12:00 AM Decadron 8mg Injection Reviewed 05/31/2019 12:00 AM Depo-Medrol 80mg Injection Reviewed 07/24/2019 10:35 AM INFLUENZA A/B AG EIA Reviewed 02/17/2010 12:00 AM URINE CULTURE/COLONY COUNT Reviewed 02/17/2010 12:00 AM URINALYSIS AUTO W/O SCOPE Reviewed 02/17/2010 12:00 AM COMPUTER DX MAMMOGRAM ADD-ON Reviewed 04/22/2009 12:00 AM CYTOPATH C/V THIN LAYER Reviewed 04/22/2009 12:00 AM CULTURE OTHR SPECIMN AEROBIC Reviewed 04/22/2009 12:00 AM DRAINAGE OF SKIN ABSCESS Reviewed 02/10/2014 12:00 AM IMMUNOASSAY QUANT NOS NONAB Reviewed 02/10/2014 12:00 AM FLUORESCENT ANTIBODY SCREEN Reviewed 02/10/2014 12:00 AM IMMUNOFLUORESCENT STUDY Reviewed 02/13/2014 12:[address] ABD & PELV 1/> REGNS Reviewed 07/21/2010 12:00 AM CYTOPATH C/V THIN LAYER Reviewed 09/09/2014 12:00 AM CYTOPATH C/V THIN LAYER Reviewed 09/09/2014 12:00 AM MAMMOGRAM SCREENING Reviewed 09/09/2014 12:00 AM Screening Mammography, bilateral Reviewe d 09/09/2014 12:00 AM COMPLETE CBC W/AUTO DIFF WBC Reviewed 01/14/2011 12:00 AM REMOVE IMPACTED EAR WAX UNI Reviewed 01/14/2011 12:00 AM THER/PROPH/DIAG INJ SC/IM Reviewed 01/14/2011 12:00 AM Bicillin CR 1.[address] [facility]#[id number] Clini c Reviewed 02/12/2015 12:00 AM COMPLETE CBC W/AUTO DIFF WBC Reviewed 02/12/2015 12:00 AM ASSAY OF IRON Reviewed 02/12/2015 12:00 AM IRON BINDING TEST Reviewed 02/12/2015 12:00 AM ASSAY OF FERRITIN Reviewed Results Summary Date and Description Results 10/15/2012 3:00 PM WBC 10.8 RBC 4.45 HGB 14.10 g/dLHCT 40.40 %MCV 91.0 fLMCH 31.70 pgMCHC 34.90 g/dLRDW SD 43 RDW CV 12.90 %MPV 10.20 fLPLT 245 NRBC# 0.00 NRBC% 0.0 %NEUT 58.20 %%LYMP 33.60 %%MONO 5.70 %%EOS 2.10 %%BASO 0.40 %#NEUT 6.29 #LYMP 3.63 #MONO 0.62 #EOS 0.23 #BASO 0.04 MANUAL DIFF NOT IND 10/21/2013 10:58 AM TSH 1.370 uIU/mLFSH 1.0 mIU/ mL 02/10/2014 2:35 PM Saccharomycescerevisiae, IgG <20.0 Saccharomycescerevisiae, IgA <20.0 Atypical pANCA <1:20 titer 09/16/2014 8:14 AM WBC 11.1 RBC 5.23 HGB 11.50 g/dLHCT 37.40 %MCV 72.0 fLMCH 22.0 pgMCHC 30.70 g/dLRDW SD 47 RDW CV 18.30 %MPV 9.20 fLPLT 377 NRBC# 0.00 NRBC% 0.0 %NEUT 74.90 %%LYMP 18.0 %%MONO 5.10 %%EOS 1.50 %%BASO 0.50 %#NEUT 8.29 #LYMP 1.99 #MONO 0.56 #EOS 0.17 #BASO 0.05 MANUAL DIFF NOT IND 02/12/2015 4:30 PM FERRITIN 8.0 ng/mLIRON TOTAL 63.0 ug/dLTransferrin 348.0 mg/dLTIBC Calculation 435 %Saturation Calc 14 WBC 13.1 RBC 4.75 HGB 12.90 g/dLHCT 39.20 %MCV 83.0 fLMCH 27.20 pgMCHC 32.90 g/dLRDW SD 52 RDW CV 17.0 %MPV 9.80 fLPLT 325 NRBC# 0.00 NRBC% 0.0 %NEUT 63.90 %%LYMP 26.40 %%MONO 6.30 %%EOS 2.80 %%BASO 0.60 %#NEUT 8.34 #LYMP 3.45 #MONO 0.82 #EOS 0.37 #BASO 0.08 MANUAL DIFF SEE BELOW SEGS 73 BANDS 5 LYMPHS 21 MONOS 1 ANISO 1+ 11/30/2015 2:18 PM WBC 12.5 RBC 4.56 HGB 13.80 g/dLHCT 40.50 %MCV 89.0 fLMCH 30.30 pgMCHC 34.10 g/dLRDW SD 45 RDW CV 13.70 %MPV 9.60 fLPLT 289 NRBC# 0.00 NRBC% 0.0 %NEUT 64.40 %%LYMP 25.40 %%MONO 6.90 %%EOS 2.50 %%BASO 0.60 %#NEUT 8.02 #LYMP 3.16 #MONO 0.86 #EOS 0.31 #BASO 0.08 MANUAL DIFF NOT IND TSH 2.120 uIU/mLT4 8.0 ug/dLANA Direct Negative 12/25/2017 9:30 AM QuantiFERON TB Gold Negative QuantiFERON Criteria COMMENT QuantiFERON TB Ag Value 0.03 QuantiFERON Nil Value 0.03 QuantiFERON Mitogen Value >10.00 QFT TB Ag minus Nil Value 0.00 Interpretation: COMMENT 08/28/2018 9:40 AM TSH 0.75 Estradiol 12.0 pg/m LLH 22.1 FSH 55.0 08/29/2018 8:40 AM Clarity Ur clear Urine-Color yellow Glucose Ur-sCnc negative Bilirub Ur Ql negative Ketones Ur Ql Strip trace Sp Gr Ur Qn 1.025 Hgb Ur Ql Strip negative pH Ur-LsCnc 5.5 Prot Ur Ql Strip negative Urobilinogen Ur-mCnc 0.2 Nitrite Ur Ql Strip negative WBC # Ur negative 07/24/2019 10:57 AM Influenza A neg Influenza B neg History Of Immunizations Not available. History of Past Illness Name Date of Onset Comments Routine gynecological examination Apr 22 2009 9:48AM Abscess Apr 22 2009 9:48AM Anxiety disorder Depressive Disorder Stress Incontinence, Female Chronic Gastric Ulcer Thoracic Spine Pain lumbar back pain Spondylolisthesis, Acquired Costochondritis Obesity Weight Loss Jul 21 2009 3:14PM Major depressive disorder, recurrent episode; mild Jul 2124 03 3:14PM Cellulitis and abscess of finger; unspecified Jul 21 2009 3 :14PM Dietary Counseling Oct 27 2009 8:16AM Exercise Counseling Oct 27 2009 8:16AM Dietary Counseling Nov 25 2009 8:51AM Exercise Counseling Nov 25 2009 8:51AM Other persons seeking consultation; dietary surveillan ce and counseling Jan 11 2010 9:06AM Other persons seeking consultation; othe r counseling, not elsewhere classified; exercise counseling Jan 11 2010 9:06AM Urinary Tract Infection Feb 17 2010 3:33PM Breast Lump Feb 17 2010 3:33PM Depression and anxiety Feb 17 2010 3:33PM Obesity Feb 17 2010 3:33PM Colonic Polyps, Personal History of 2008 Dr. Kerns-Polyp at 25 cm Colitis Abdominal pain Dietary Counseling Apr 05 2010 11:30AM Exercise Counseling Apr 05 2010 11:30AM Obesity Apr 05 2010 11:30AM Ulcerative colitis 09/09/2014 Dietary Counseling May 25 2010 8:07AM Exercise Counseling May 25 2010 8:07AM Obesity May 25 2010 8:07AM Maxillary Sinusitis, Acute Jul 13 2010 10:36AM Conjunctivitis, Bilateral Jul 13 2010 10:36AM Routine gynecological examination Jul 21 2010 8:19AM Dietary Counseling Jul 21 2010 8:19AM Exercise Counseling Jul 21 2010 8:19AM Cellulitis and abscess; buttock Jul 21 2010 8:19AM Nicotine Addiction 12/06/2015 Bartholin's Gland Cyst Sep 23 2010 8:25AM Dietary Counseling Sep 23 2010 8:25AM Exercise Counseling Sep 23 2010 8:25AM Tobacco use disorder Sep 23 2010 8:25AM Dietary Counseling Nov 02 2010 3:45PM Exercise Counseling Nov 02 2010 3:45PM Medication management 11/03/2016 Decreased libido without sexual dysfunction 11/03/2016 Mood swings 11/03/2016 Morbid obesity due to excess calories 11/03/2016 Environmental and seasonal allergies 11/03/2016 NATASHA (generalized anxiety disorder) 11/29/2016 Pharyngitis, Acute Jan 14 2011 8:02AM Cerumen Impaction-Right Jan 14 2011 8:02AM Moderate episode of recurrent major depressive disorder 09/03 Attention deficit disorder (ADD) without hyperactivity 09/16 Dietary Counseling May 24 2011 8:09AM Exercise Counseling May 24 2011 8:09AM Crohn disease 07/11/2018 Routine gynecological examination Jul 04 2011 8:42AM Dietary Counseling Jul 04 2011 8:42AM Exercise Counseling Jul 04 2011 8:42AM Cellulitis and abscess; buttock Jul 04 2011 8:42AM Breast Lump, right Jul 04 2011 8:42AM Special screening for cardiovascular, re spiratory, and genitourinary diseases;ischemic heart disease Jul 04 2011 8:42AM Fatigue Jul 04 2011 8:42AM Dietary Counseling Sep 30 2011 8:19AM Exercise Counseling Sep 30 2011 8:19AM Anxiety Disorder Sep 30 2011 8:19AM Depressive Disorder Sep 30 2011 8:19AM Dietary Counseling Nov 29 2011 8:21AM Exercise Counseling Nov 29 2011 8:21AM Anxiety Disorder Nov 29 2011 8:21AM Depressive Disorder Nov 29 2011 8:21AM Dietary Counseling Jan 11 2012 8:08AM Exercise Counseling Jan 11 2012 8:08AM Anxiety Disorder Jan 11 2012 8:08AM Depressive Disorder Jan 11 2012 8:08AM Sebaceous Cyst Jan 15 2012 5:00PM Dietary Counseling Apr 20 2012 8:06AM Exercise Counseling Apr 20 2012 8:06AM Dietary Counseling Jun 21 2012 8:22AM Exercise Counseling Jun 21 2012 8:22AM Anxiety Disorder Jun 21 2012 8:22AM Depressive Disorder Jun 21 2012 8:22AM Routine gynecological examination Oct 15 2012 1:51PM Dietary Counseling Oct 15 2012 1:51PM Exercise Counseling Oct 15 2012 1:51PM Cellulitis and abscess; buttock Oct 15 2012 1:51PM Breast Lump, right Oct 15 2012 1:51PM Special screening for cardiovascular, re spiratory, and genitourinary diseases;ischemic heart disease Oct 15 2012 1:51PM Fatigue Oct 15 2012 1:51PM Leukocytosis Oct 15 2012 1:51PM Seizure Disorder Oct 24 2012 8:39AM Dietary Counseling Feb 18 2013 8:11AM Exercise Counseling Feb 18 2013 8:11AM Subcutaneous Nodule Feb 18 2013 8:11AM Depression Feb 18 2013 8:11AM Body Mass Index [BMI]; body mass index b etween 30-39, adult; body mass index 32.0-32.9, adult Jul 08 2013 8:33AM Anxiety Disorder Jul 08 2013 8:33AM Depressive Disorder Jul 08 2013 8:33AM Routine gynecological examination Sep 10 2013 8:06AM Dietary Counseling Sep 10 2013 8:06AM Exercise Counseling Sep 10 2013 8:06AM Irregular Menses Sep 10 2013 8:06AM Screening Examination for Breast Cancer Sep 10 2013 8:06AM Gynecological Exam Oct 01 2013 9:32AM Contraceptive Counseling Oct 01 2013 9:32AM Vulvovaginitis, Trichomonal Oct 01 2013 9:32AM Abnormal Uterine Bleeding Oct 21 2013 9:46AM Dietary Counseling Nov 04 2013 9:36AM Exercise Counseling Nov 04 2013 9:36AM Colon Cancer Screening Nov 04 2013 10:30AM Rectal bleeding Nov 04 2013 10:30AM Abdominal pain, epigastric Nov 04 2013 10:30AM Dyspepsia Nov 04 2013 10:30AM Acute gastritis Nov 25 2013 11:00AM Follow-up examination after endoscopy Nov 25 2013 11:00AM Colitis Nov 25 2013 11:00AM Rectal bleeding Dec 30 2013 1:14PM Abdominal Pain Feb 10 2014 2:13PM Rectal bleeding Feb 10 2014 2:13PM Colitis Feb 13 2014 11:48AM Abdominal Pain Feb 13 2014 11:48AM Colonic Polyps, Personal History of Feb 13 2014 11:48AM Ulcerative Colitis Feb 24 2014 12:04PM Routine gynecological examination Sep 09 2014 8:33AM Dietary Counseling Sep 09 2014 8:33AM Exercise Counseling Sep 09 2014 8:33AM Screening Examination for Breast Cancer Sep 09 2014 8:33AM Pica Sep 09 2014 8:33AM Contraceptive Counseling Sep 09 2014 8:33AM Ulcerative colitis Sep 09 2014 8:33AM Nicotine addiction Sep 09 2014 8:33AM Insomnia Sep 09 2014 8:33AM Cardiac murmur Sep 09 2014 8:33AM Anemia Feb 12 2015 3:38PM Pica Feb 12 2015 3:38PM Anxiety Disorder Feb 12 2015 3:38PM Colon Cancer Screening Mar 02 2015 10:30AM Ulcerative colitis Mar 02 2015 10:30AM Acute gastritis Mar 23 2015 11:28AM Ulcerative colitis Mar 23 2015 11:28AM Acute pharyngitis, unspecified pharyngitis type Apr 13 2015 3:13PM Candidiasis May 13 2015 2:47PM Eczema, unspecified eczema May 13 2015 2:47PM Colitis Nov 24 2015 11:47AM Fatigue, unspecified type Nov 30 2015 1:32PM Myalgia Nov 30 2015 1:32PM Routine gynecological examination Nov 30 2015 1:32PM Contraceptive Counseling Nov 30 2015 1:32PM Ulcerative colitis Nov 30 2015 1:32PM Nicotine addiction Nov 30 2015 1:32PM Insomnia Nov 30 2015 1:32PM Cardiac murmur Nov 30 2015 1:32PM Visit for screening mammogram Nov 30 2015 1:32PM Leukocytosis Dec 08 2015 5:36PM General medical exam Feb 24 2016 10:07AM Depression with anxiety Feb 24 2016 10:07AM Cloudy urine Feb 24 2016 10:07AM Ulcerative Colitis Nov 24 2015 11:47AM Bronchitis, Acute May 02 2016 2:43PM Acute suppurative otitis media of left e ar without spontaneous rupture of tympanic membrane, recurrence not specified May 02 2016 2:43PM Acute non-recurrent frontal sinusitis Jun 15 2016 9:46AM Right acute serous otitis media, recurrence not specified Ja n 2016 9:46AM Eustachian tube dysfunction, right Jul 04 2016 9:39AM Acute bronchitis Aug 16 2016 2:06PM Acute non-recurrent maxillary sinusitis Aug 16 2016 2:06PM Morbid obesity due to excess calories Nov 01 2016 11:17AM Generalized anxiety disorder Nov 01 2016 11:17AM Depressive Disorder Nov 01 2016 11:17AM Mood swings Nov 01 2016 11:17AM Decreased libido without sexual dysfunction Nov 01 2016 11:1 7AM Medication management Nov 01 2016 11:17AM Environmental and seasonal allergies Nov 01 2016 11:17AM Medication management Nov 28 2016 11:13AM Decreased libido without sexual dysfunction Nov 28 2016 11:1 3AM Mood swings Nov 28 2016 11:13AM Ulcerative pancolitis without complication Nov 28 2016 11:13 AM Moderate Chronic Depressive Disorder Stable Improving Nov 28 2016 11:13AM Moderate Chronic NATASHA (generalized anxiety disorder) Stable J 2016 11:13AM Eustachian Tube Dysfunction Feb 01 2017 6:31AM Purulent postnasal drainage Feb 01 2017 6:31AM Acute nasopharyngitis Feb 01 2017 6:31AM Sinus pressure Feb 01 2017 6:31AM Smoker Feb 01 2017 6:31AM Chronic seasonal allergic rhinitis Feb 01 2017 6:31AM Fatigue, unspecified type Mar 14 2017 9:31AM Myalgia Mar 14 2017 9:31AM Routine gynecological examination Mar 14 2017 9:31AM Contraceptive Counseling Mar 14 2017 9:31AM Ulcerative colitis Mar 14 2017 9:31AM Nicotine addiction Mar 14 2017 9:31AM Insomnia Mar 14 2017 9:31AM Cardiac murmur Mar 14 2017 9:31AM Visit for screening mammogram Mar 14 2017 9:31AM Acute pharyngitis, unspecified etiology Jul 18 2017 10:07AM Purulent postnasal drainage Jul 18 2017 10:07AM Head congestion Jul 18 2017 10:07AM Moderate episode of recurrent major depressive disorder Sep 12 2017 4:19PM Attention deficit disorder (ADD) without hyperactivity Sep 032017 4:19PM Moderate episode of recurrent major depressive disorder Dec 11 2017 10:05AM Attention deficit disorder (ADD) without hyperactivity Dec 11 2017 10:05AM Inflammatory bowel disease Dec 25 2017 8:46AM Candidiasis Dec 25 2017 8:46AM Abscess Dec 25 2017 8:46AM IBS (irritable bowel syndrome) Mar 11 2018 1:48PM Crohn disease Mar 11 2018 1:48PM Fatigue, unspecified type Apr 09 2018 9:11AM Myalgia Apr 09 2018 9:11AM Routine gynecological examination Apr 09 2018 9:11AM Contraceptive Counseling Apr 09 2018 9:11AM Ulcerative colitis Apr 09 2018 9:11AM Nicotine addiction Apr 09 2018 9:11AM Insomnia Apr 09 2018 9:11AM Cardiac murmur Apr 09 2018 9:11AM Visit for screening mammogram Apr 09 2018 9:11AM Depressive Disorder May 11 2018 8:47AM Paronychia of left thumb May 11 2018 8:47AM Burning tongue syndrome May 11 2018 8:47AM Gastroesophageal Reflux Jun 19 2018 8:56AM Neck Pain Jun 19 2018 8:56AM Crohn disease Jul 11 2018 10:01AM Nausea & vomiting Jul 11 2018 10:01AM Crohn's colitis Jul 11 2018 10:01AM Irregular menses Aug 28 2018 8:50AM Sinusitis, chronic Aug 28 2018 2:14PM Thoracic back pain Aug 28 2018 8:50AM Impacted cerumen of right ear Aug 28 2018 8:50AM Anxiety Disorder Oct 31 2018 8:04AM Mononeuropathy Oct 31 2018 8:04AM Carpal tunnel syndrome of right wrist Nov 16 2018 11:08AM Cervical radiculopathy Nov 16 2018 11:08AM Left Plantar fasciitis Dec 24 2018 12:47PM Foot pain, left Jan 14 2019 10:41AM Obesity Jan 14 2019 10:41AM Left Breast Mass Mar 20 2019 9:05AM Tongue pain Mar 20 2019 9:05AM Dermatitis Mar 20 2019 9:05AM Acute non-recurrent maxillary sinusitis May 31 2019 10:16AM Anxiety Disorder Jun 14 2019 9:13AM Hoarseness Jun 14 2019 9:13AM Obesity Jul 08 2019 9:06AM Hoarseness Jul 08 2019 9:06AM Acute maxillary sinusitis, recurrence not specified Jul 24 2 10:35AM Payers Insurance Name Company Name Plan Name Plan Number Policy Number Quirino cy Group Number Start Date BCBS [id number] N/ A [employer] Financial Assistance [employer] [facility] 50 percent [facility] June [employer] [id number] Friday, August 17, 2012 [facility] [id number] We May 28, 2014 History of Encounters Visit Date Visit Type Provider 07/24/2019 Office visit Rachael EL RN 07/08/2019 Office visit Kasi Isaiah DO 06/14/2019 Office visit Kasi Isaiah DO 05/31/2019 Office visit Kasi Isaiah DO 03/20/2019 Office visit Kasi Isaiah DO 01/14/2019 Office visit Kasi Isaiah DO 12/24/2018 Office visit Didi Ashford APR N 11/16/2018 Procedures Jakesuzette Solo DO 10/31/2018 Office visit Kasi Isaiah DO 08/28/2018 Office visit Kasi Isaiah DO 07/11/2018 Office visit Kasi Isaiah DO 06/19/2018 Office visit Kasi Isaiah DO 05/11/2018 Office visit Kasi Isaiah DO 04/09/2018 Office visit Kasi Isaiah DO 03/11/2018 Office visit Ruth EL RN 12/25/2017 Office visit Kasi Isaiah DO 12/11/2017 Office visit JI WEINBERG 09/12/2017 Office visit JI WEINBERG 07/18/2017 Office visit JI WEINBERG 03/14/2017 Office visit Kasi Isaiah DO 01/31/2017 Office visit JI WEINBERG 11/28/2016 Office visit JI WEINBERG 11/01/2016 Office visit JI WEINBERG 08/16/2016 Office visit Kasi Isaiah DO 07/04/2016 Office visit Kasi Isaiah DO 06/15/2016 Office visit Kasi Isaiah DO 05/02/2016 Office visit Kasi Isaiah DO 02/24/2016 Office visit Kasi Isaiah DO 11/30/2015 Office visit Kasi Isaiah DO 11/24/2015 Office visit Ji Victor MD 05/13/2015 Office visit Magda Chen APRN 04/13/2015 Office visit Magda Chen APRN 03/23/2015 Office visit Ji Victor MD 03/13/2015 [facility] Ji Victor MD 03/02/2015 Office visit Ji Victor MD 02/12/2015 Office visit Kasi Colon DO 09/09/2014 Office visit Kasi Isaiah DO 02/24/2014 Office visit Ji Victor MD 12/30/2013 Office visit Ji Victor MD 11/25/2013 Office visit Ji Victor MD 11/14/2013 [facility] Ji Victor MD 11/04/2013 Office visit Ji Victor MD 11/04/2013 Office visit Kasi Isaiah DO 10/21/2013 Office visit Kb Perry MD 10/01/2013 Office visit Kb Perry MD 09/10/2013 Office visit Kasi Isaiah DO 07/08/2013 Office visit Magad Gustavo STOREHOUSE CLERK 02/18/2013 Office visit Kasi Isaiah DO 10/24/2012 Office visit Kasi Isaiah DO 10/15/2012 Office visit Kasi Isaiah DO 06/21/2012 Office visit Kasi Isaiah DO 04/20/2012 Office visit Kasi Isaiah DO 01/11/2012 Office visit Kasi Isaiah DO 11/29/2011 Office visit Kasi Isaiah DO 09/30/2011 Office visit Kasi Isaiah DO 07/04/2011 Office visit Kasi Isaiah DO 05/24/2011 Office visit Kasi Isaiah DO 03/18/2011 Voided Kasi Isaiah DO 01/14/2011 Office visit Meenakshi Singh PA 11/02/2010 Office visit Kasi Isaiah DO 09/23/2010 Office visit Kasi Isaiah DO 07/21/2010 Office visit Kasi Isaiah DO 07/13/2010 Office visit Kasi Isaiah DO 05/25/2010 Office visit Meenakshi Singh PA 04/05/2010 Office visit Meenakshi Singh PA 02/17/2010 Office visit Meenakshi Singh PA 01/11/2010 Office visit Meenakshi Singh PA 11/25/2009 Office visit Kasi Leongte DO 10/27/2009 Office visit Kasi Colon DO 08/27/2009 Nurse visit Jerilyn WEINBERG 08/27/2009 Voided Meenakshi Singh PA 07/21/2009 Office visit Jerilyn WEINBERG 04/22/2009 Office visit Meenakshi WEINBERG 04/07/2009 Office visit Jerilyn WEINBERG 03/03/2009 Office visit Kasi Colon DO 02/23/2009 Office visit Jitendra Kerns MD 02/18/2009 Surgery Jitendra Kerns MD 02/16/2009 Surgery Jitendra Kerns MD 02/06/2009 Surgery Jitendra Kerns MD 02/05/2009 Office visit Jitendra Kerns MD
--- OUTSIDE RECORDS SUMMARY | 2019-08-23 11:03 | XMS REPORT | CCD ---
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 Weight Measured 184 lbs 11/06/2013 09:00 Initial VS Height 65 in 11/06/2013 09:00 Initi al VS BMI (Body Mass Index) 30.62 kg/m^2 11/06/2013 09 :00 Initial VS BSA (Body Surface Area) 1.96 m^2 11/06/2013 09:00 Initial VS Allergies Allergy Code Allergy Type Reaction Status No Known Allergies 0 No known allergies Active Procedures Unknown. History of Immunizations Unknown. Problems Unknown. Results TEST URINE Test Name Code Test Result Test Units Miriam t Date/Time TEST UR 2106-3 NEGATIVE N/A 06:35 IBD Test Name Code Test Result Test Units Miriam t Date/Time Saccharomycescerevisiae, IgG 6713-2 20.0000 Units 11/14/2013 07:50 Saccharomycescerevisiae, IgA 33496-6 20.0000 Unit s 11/14/2013 07:50 Atypical pANCA 74474-4 <1:20 N/A 2013 07:50 CLOSTRIDIUM DIFFICILE TOXIN A/B Test Name Code Test Result Test Units Miriam t Date/Time C DIFFICILE 6361-0 NEGATIVE -- C DIFF TOXIN NOT D ETECTED N/A 11/14/2013 11:00 Medications Medication Code Dose Units Frequency Rou te Modification Start Date/Time Stop Date/Time CONTROL PILL 0 1 EACH DAILY Medications Administered Unknown. Encounters Encounter Diagnosis Diagnosis Code Start Date UNSPEC GASTRITIS & GASTRODUODENITIS 01344 11/14/2013 Social History Smoking Status Code Start Date End Date Current every day smoker [id number] Patient Decision Aids Unknown. Discharge Instructions You were admitted to [facility] on 11/14/2013 with a principle diagnosis of UNSPEC GASTRITIS & GASTRODUODENITIS. You had the following procedures done: EGD BIOPSY SINGLE/MULTIPLE COLONOSCOPY AND BIOPSY You had the following tests done: Saccharomycescerevisiae, IgG Saccharomycescerevisiae, IgA Atypical pANCA You were discharged from [facility] on 11/14/2013. Should you have any questions prior to discharge, please contact a member of your healthcare team. If you have left the hospital and have any questions, please contact your primary care physician. Chief Complaint and Reason For Visit Chief Complaint Date of Onset GEN EGD CSCOPE Function Status Unknown. Plan of Care Unknown. Referral/Transition of Care Unknown.
--- OUTSIDE RECORDS SUMMARY | 2019-08-23 11:04 | XMS REPORT ---
Author Lindsey Riley Organization [facility] Address [address] [place], [place] [address] Care Team Providers Care Top Steep Tender Name Role Phone Rachael Cuellar PCP Kasi [...] once daily before breakfast for 30 days Augmentin 875-125 mg oral tablet 07/24/2019 07/31/2019 take 1 tablet by oral route every 12 hours for 7 days ropinirole 0.5 mg oral tablet 07/31/2019 ta ke 1 tablet (0.5 mg) by oral route 1-3 hours before bedtime Name Start Date Expiration Date SIG Comments [...] tablets,dose pack 07/13/2010 09/23/2010 take as directed fqbvaque-sapaxhftg-HC 3.5-10,000-10 mg-unit-mg/mL opht halmic drops,suspension 07/13/2010 09/23/2010 [...] by oral route once daily , [facility] Dx: Short term weight loss prednisone [...] Description Status Onset Anxiety disorder Active Depressive disorder Active Colitis Active Abdominal pain Active Colonic [...] 12:00 AM Bicillin CR, 1.2 million units [facility]# 6079 3-600-10 Reviewed 11/30/2015 12:00 AM COMPLETE [...] Reviewed 01/14/2011 12:00 AM Bicillin CR 1.2 [facility]#[id number] Clini c Reviewed 02/12/2015 12:00 AM COMPLETE [...] Apr 22 2009 9:48AM Anxiety disorder Depressive disorder Stress Incontinence, Female Chronic Gastric Ulcer Thoracic [...] Quirino cy Group Number Start Date BCBS [id number] N/ A [employer] Financial Assistance [employer] [facility] Gio 50 percent [facility] June Early Detection Works Early Detection Works [id number] Friday, August 17, 2012 [facility] [id number] We May 28, 2014 History of Encounters [...] 03/23/2015 Office visit Ji Victor MD 03/13/2015 [facility] Ji Victor MD 03/02/2015 Office visit Ji Victor MD 02/12/2015 Office visit Kasi Colon DO 09/09/2014 Office visit Kasi Isaiah DO 02/24/2014 Office visit Ji Victor MD 12/30/2013 Office visit Ji Victor MD 11/25/2013 Office visit Ji Victor MD 11/14/2013 [facility] Ji Victor MD 11/04/2013 Office visit Ji Victor MD 11/04/2013 Office visit Kasi Isaiah DO 10/21/2013 Office visit Kb Perry MD 10/01/2013 Office visit Kb Perry MD 09/10/2013 Office visit Kasi Isaiah DO 07/08/2013 Office visit Magda Gustavo SUSTAINABILITY DIRECTOR 02/18/2013 Office visit Kasi Isaiah DO 10/24/2012 [...]
--- OUTSIDE RECORDS SUMMARY | 2019-08-23 11:05 | XMS REPORT ---
Author Lindsey Riley Organization [facility] Address [address] [place], [place] [id number] Care Team Providers Care Project Product Manager Name Role Phone Rachael Cuellar PCP Kasi [...] Xanax 0.5 mg oral tablet 11/01/2016 12/01/2016 1/2 to 1 twice daily as needed for [...] tablets,dose pack 07/13/2010 09/23/2010 take as directed jqtxfdgb-euxxgbrcu-YE 3.5-10,000-10 mg-unit-mg/mL opht halmic drops,suspension 07/13/2010 09/23/2010 [...] by oral route once daily , in midmorning Dx: Short term weight loss prednisone 10 [...] DAY nystatin 100,000 unit/gram topical powder 05/13/2015 016 apply to the affected area(s) by [...] 12:00 AM Bicillin CR, 1.2 million units [facility]# 6079 3-600-10 Reviewed 11/30/2015 12:00 AM COMPLETE [...] Reviewed 01/14/2011 12:00 AM Bicillin CR 1.2 [facility]#[id number] Clini c Reviewed 02/12/2015 12:00 AM COMPLETE [...] sinusitis, recurrence not specified Jul 24 2 020 10:35AM Payers Insurance Name Company Name Plan Name Plan Number Policy Number Quirino cy Group Number Start Date BCBS [facility] [id number] N/ A Wide Limited [employer] Distribution [employer] Financial Assistance Wide Limited Release Film Distribution Fund Fin ancial Gio 50 percent clinics ThJune 05, 2008 Early Detection Works Early Detection [employer] [id number] Friday, August 17, 2012 BCBS [facility] [id number] We May 28, 2014 History of Encounters [...] Chen APRN 04/13/2015 Office visit Magda Chen TIME STAMP ASSEMBLER 03/23/2015 Office visit Ji Victor MD 03/13/2015 [facility] Ji Victor MD 03/02/2015 Office visit Ji Victor MD 02/12/2015 Office visit Kasi Arshadhite DO 09/09/2014 Office visit Kasi Isaiah DO 02/24/2014 Office visit Ji Victor MD 12/30/2013 Office visit Ji Victor MD 11/25/2013 Office visit Ji Victor MD 11/14/2013 [facility] Ji Victor MD 11/04/2013 Office visit Ji Victor MD 11/04/2013 Office visit Kasi Isaiah DO 10/21/2013 Office visit Kb Perry MD 10/01/2013 Office visit Kb Perry MD 09/10/2013 Office visit Kasi Isaiah DO 07/08/2013 Office visit Magda Chen TIME STAMP ASSEMBLER 02/18/2013 Office visit Kasi Isaiah DO 10/24/2012 [...] Meenakshi Singh PA 11/25/2009 Office visit Kasi Isaiah DO 10/27/2009 Office visit Kasi Isaiah DO 08/27/2009 Nurse visit Jerilyn Colindres PA 08/27/2009 Voided Meenakshi Snigh PA 07/21/2009 Office visit Jerilyn Colindres PA 04/22/2009 Office visit Meenakshi Singh PA 04/07/2009 Office visit Jerilyn Colindres PA 03/03/2009 Office visit Kasi Colon DO 02/23/2009 Office visit Jitendra Kerns MD 02/18/2009 Surgery Jitendra Kerns MD 02/16/2009 Surgery Jitendra Kerns MD 02/06/2009 Surgery Jitendra Kerns MD 02/05/2009 Office visit Jitendra Kerns MD
--- OUTSIDE RECORDS SUMMARY | 2019-08-23 11:06 | XMS REPORT ---
Author Lindsey Riley Organization [facility] Address [address] [place], [place] [address] Care Team Providers Care Stem Cutter Name Role Phone Rachael Cuellar PCP Kasi [...] tablets,dose pack 07/13/2010 09/23/2010 take as directed wxzirfpv-wnfeephym-OH 3.5-10,000-10 mg-unit-mg/mL opht halmic drops,suspension 07/13/2010 09/23/2010 [...] 12:00 AM Bicillin CR, 1.2 million units [facility]# 6079 3-600-10 Reviewed 11/30/2015 12:00 AM COMPLETE [...] Reviewed 01/14/2011 12:00 AM Bicillin CR 1.2 [facility]#[id number] Clini c Reviewed 02/12/2015 12:00 AM COMPLETE [...] Quirino cy Group Number Start Date BCBS [facility] [id number] N/ A [employer] Financial Assistance [employer] Fin ancial Gio 50 percent clinics ThJune 05, 2008 Early Detection Works Early Detection [employer] [id number] Friday, August 17, 2012 BCBS [facility] [id number] We May 28, 2014 History of Encounters [...] Chen APRN 04/13/2015 Office visit Magda Chen CAN DOFFER 03/23/2015 Office visit Ji Victor MD 03/13/2015 [facility] Ji Victor MD 03/02/2015 Office visit Ji Victor MD 02/12/2015 Office visit Kasi Arshadhite DO 09/09/2014 Office visit Kasi Isaiah DO 02/24/2014 Office visit Ji Victor MD 12/30/2013 Office visit Ji Victor MD 11/25/2013 Office visit Ji Victor MD 11/14/2013 [facility] Ji Victor MD 11/04/2013 Office visit Ji Victor MD 11/04/2013 Office visit Kasi Isaiah DO 10/21/2013 Office visit Kb Perry MD 10/01/2013 Office visit Kb Perry MD 09/10/2013 Office visit Kasi Isaiah DO 07/08/2013 Office visit Magda Chen CAN DOFFER 02/18/2013 Office visit Kasi Isaiah DO 10/24/2012 [...] visit Jerilyn Colindres PA 08/27/2009 Voided Meenakshi Singh PA 07/21/2009 Office visit Jerilyn Colindres PA 04/22/2009 Office visit Meenakshi Singh PA 04/07/2009 Office visit Jerilyn Colindres PA 03/03/2009 Office visit Kasi Colon DO 02/23/2009 Office visit Jitendra Kerns MD 02/18/2009 Surgery Jitendra Kerns MD 02/16/2009 Surgery Jitendra Kerns MD 02/06/2009 Surgery Jitendra Kerns MD 02/05/2009 Office visit Jitendra Kerns MD
--- OUTSIDE RECORDS SUMMARY | 2019-08-23 11:06 | XMS REPORT ---
Author Author Lindsey Colon Organization [facility] Address [address] [place], [place] [id number] Care Team Providers Care Manager Global Name Role Phone Kasi Colon PCP Kasi Colon PreferredProvider Allergies and Adverse Reactions Name Reaction Notes NO KNOWN DRUG ALLERGIES Plan of Treatment Planned Activity Comments Planned Date Planned Time Plan/Goal Basic metabolic profile 05/13/2015 12:00 AM Medications Active Name Start Date Estimated Completion Date SIG Co mments Humira Pen 40 mg/0.8 mL subcutaneous pen injector kit inject 0.8 milliliter (40 mg) by subcutaneous route every 2 weeks Lialda 1.2 gram oral tablet,delayed release (DR/EC) 08/01/2016 TAKE 4 TABS BY MOUTH DAILY WITH BREAKFAST. SWALLOW WHOLE; DO NOT BREAK, CHEW OR CRUSH. ADMINISTER WITH A MEAL. Apri 0.15-0.03 mg oral tablet 06/19/2018 06/18/2019 ta ke 1 tablet by oral route once daily for 28 days pantoprazole 40 mg oral tablet,delayed release (DR/EC) 07/21/2018 TAKE 1 TABLET BY MOUTH ONCE A DAY paroxetine HCl 20 mg oral tablet 10/31/2018 10/26/2019 take 2.5 tablets by oral route daily for 90 days Sudogest 30 mg oral tablet 01/04/2019 take 2 tablets (60 mg) by oral route every 6 hours as needed gabapentin 300 mg oral capsule 01/14/2019 t blanca 1 capsule (300 mg) by oral route at bedtime phentermine 37.5 mg oral tablet 01/14/2019 02/13/2019 take 1 tablet (37.5 mg) by oral route once daily before breakfast for 30 daysDx: Short term weight loss Name Start Date Expiration Date SIG Comments [...] days Xanax 0.5 mg oral tablet 11/01/2016 12/01/201606/06 to 1 twice daily as needed for [...] by oral route 3 times per day Discontinued Name Start Date Discontinued Date SIG [...] by oral route every 12 hours Medrol (Ojna) 4 mg oral tablets,dose pack 07/13/2010 09/23/2010 take as directed kjjqophk-rwwcohokl-TI 3.5-10,000-10 mg-unit-mg/mL opht halmic drops,suspension 07/13/2010 09/23/2010 [...] oral route every 12 hours as needed Problem List Description Status Onset Anxiety disorder Active Depressive disorder Active Colitis Active Abdominal Pain Active Colonic Polyps, Personal History of Active [...] HC BMI BSA BMI Percentile O2 Sat(%) 01/14/2019 10:39:00 AM 132 mmHg 60 mmHg 97 bpm 20 rpm 98.1 F 214 lbs 64 in 36.7326 kg/m 2.0936 m 8 % 12/24/2018 12:44:00 PM 118 mmHg 78 mmHg 91 bpm 18 rpm 98.2 F 218.5 lbs 64 i n 37.51 kg/m2 2.12 m2 97 % 11/16/2018 11:06:00 AM 122 mmHg 64 mmHg 107 bpm 97.9 F 215 lbs 64 in 36.9043 kg/m 2.0985 m 95 % 10/31/2018 8:02:00 AM 128 mmHg 60 mmHg 82 bpm 18 rpm 98.8 F 214 lbs 64 in 36.73 kg/m2 2.09 m2 99 % 08/28/2018 8:48:00 AM 130 mmHg 66 mmHg 87 bpm 20 rpm 98.8 F 213 lbs 64 in 36.561 kg/m 2.0887 m 97 % 07/11/2018 9:58:00 AM 128 mmHg 88 mmHg 96 bpm 18 rpm 97.9 F 204.375 lbs 64 i n 35.08 kg/m2 2.05 m2 98 % 06/19/2018 8:54:00 AM 126 mmHg 62 mmHg 94 bpm 18 rpm 98.6 F 210 lbs 64 in 36.046 kg/m 2.074 m 96 % 05/11/2018 8:46:00 AM 130 mmHg 66 mmHg 88 bpm 20 rpm 98.8 F 206 lbs 64 in 35.36 kg/m2 2.05 m2 99 % 04/09/2018 9:08:00 AM 130 mmHg 66 mmHg 91 bpm 18 rpm 98.6 F 202 lbs 64 in 34.6729 kg/m 2.0341 m 96 % 03/11/2018 1:45:00 PM 114 mmHg 70 mmHg 87 bpm 18 rpm 98.1 F 201.5 lbs 99 % 12/25/2017 8:40:00 AM 122 mmHg 78 mmHg 18 rpm 97.9 F 201.5 lbs 64 in 34.59 kg/m2 2.0315 m 12/11/2017 10:04:00 AM 134 mmHg 74 mmHg 78 bpm 18 rpm 98.2 F 201 lbs 64 in 34.5012 kg/m 2.03 m2 98 % 09/12/2017 4:19:00 PM 104 mmHg 70 mmHg 80 bpm 18 rpm 98.4 F 203 lbs 98 % 07/18/2017 10:07:00 AM 118 mmHg 82 mmHg 82 bpm 18 rpm 97.9 F 206 lbs 64 in 35.3595 kg/m 2.0541 m 98 % 05/08/2017 9:35:00 AM 200 lbs 03/14/2017 9:29:00 AM 128 mmHg 78 mmHg 91 bpm 20 rpm 98.4 F 208 lbs 64 in 35.70 kg/m2 2.0641 m 98 % 02/01/2017 6:28:00 AM 118 mmHg 78 mmHg 80 bpm 16 rpm 98.6 F 209 lbs 64 in 35.8744 kg/m 2.07 m2 98 % 11/28/2016 11:12:00 AM 108 mmHg 74 mmHg 78 bpm 16 rpm 98.2 F 212 lbs 64 in 36.39 kg/m2 2.0838 m 98 % 11/01/2016 11:17:00 AM 132 mmHg 84 mmHg 94 bpm 18 rpm 97.4 F 210 lbs 64 in 36.046 kg/m 2.07 m2 98 % 08/16/2016 2:04:00 PM 130 mmHg 66 mmHg 96 bpm 20 rpm 98.3 F 212 lbs 64 in 36.39 kg/m2 2.0838 m 98 % 07/04/2016 9:37:00 AM 130 mmHg 76 mmHg 76 bpm 18 rpm 98.2 F 212 lbs 64 in 36.3893 kg/m 2.08 m2 97 % 06/15/2016 9:44:00 AM 128 mmHg 72 mmHg 80 bpm 16 rpm 98 F 208 lbs 64 in 35.70 kg/m2 2.0641 m 98 % 05/02/2016 2:41:00 PM 120 mmHg 72 mmHg 88 bpm 16 rpm 98 F 208 lbs 64 in 35.7028 kg/m 2.06 m2 99 % 02/24/2016 10:00:00 AM 124 mmHg 72 mmHg 81 bpm 17 rpm 97 F 202 lbs 66 in 32.60 kg/m2 2.0656 m 97 % 11/30/2015 1:30:00 PM 130 mmHg 76 mmHg 16 rpm 98.4 F 194 lbs 66 in 31.3121 kg/m 2.02 m2 100 % 11/24/2015 11:46:00 AM 112 mmHg 84 mmHg 85 bpm 20 rpm 194 lbs 64 in 33.30 kg/m2 1.9934 m 98 % 05/13/2015 2:45:00 PM 120 mmHg 74 mmHg 103 bpm 18 rpm 97.6 F 190 lbs 64 in 32.6131 kg/m 1.97 m2 97 % 04/13/2015 3:10:00 PM 122 mmHg 62 mmHg 84 bpm 18 rpm 98.9 F 187 lbs 64 in 32.10 kg/m2 1.9571 m 98 % 03/02/2015 10:30:00 AM 116 mmHg 84 mmHg 76 bpm 20 rpm 96.3 F 100 % 02/12/2015 3:36:00 PM 124 mmHg 70 mmHg 85 bpm 16 rpm 98.5 F 182.25 lbs 64 i n 31.2828 kg/m 1.9321 m 99 % 09/09/2014 8:31:00 AM 134 mmHg 70 mmHg 90 bpm 16 rpm 98 F 195 lbs 64 in 33.47 kg/m2 2.00 m2 100 % 02/24/2014 12:01:00 PM 106 mmHg 74 mmHg 85 bpm 16 rpm 97.9 F 97 % 12/30/2013 1:11:00 PM 116 mmHg 76 mmHg 82 bpm 16 rpm 96.2 F 99 % 11/25/2013 10:52:00 AM 112 mmHg 76 mmHg 73 bpm 16 rpm 97.5 F 195 lbs 64 in 33.4713 kg/m 1.9985 m 100 % 11/04/2013 9:34:00 AM 136 mmHg 78 mmHg 74 bpm 16 rpm 97.8 F 195 lbs 64 in 33.47 kg/m2 2.00 m2 100 % 10/21/2013 9:41:00 AM 130 mmHg 76 mmHg 84 bpm 98.6 F 195 lbs 64 in 33.4713 kg/m 1.9985 m 10/01/2013 9:19:00 AM 132 mmHg 86 mmHg 84 bpm 98.5 F 196 lbs 64 in 33.64 kg/m2 2.00 m2 09/10/2013 8:04:00 AM 128 mmHg 78 mmHg 79 bpm 20 rpm 98 F 192 lbs 64 in 32.9564 kg/m 1.9831 m 100 % 07/08/2013 8:30:00 AM 122 mmHg 64 mmHg 82 bpm 18 rpm 97.5 F 191.125 lbs 64 i n 32.81 kg/m2 1.98 m2 98 % 02/18/2013 8:09:00 AM 130 mmHg 72 mmHg 70 bpm 18 rpm 99.5 F 177 lbs 64 in 30.3817 kg/m 1.904 m 98 % 10/24/2012 8:36:00 AM 132 mmHg 78 mmHg 70 bpm 20 rpm 99.9 F 174 lbs 65 in 28.95 kg/m2 1.90 m2 10/15/2012 1:49:00 PM 130 mmHg 72 mmHg 70 bpm 16 rpm 98.6 F 173 lbs 65 in 28.7884 kg/m 1.8971 m 06/21/2012 8:19:00 AM 115 mmHg 70 mmHg 83 bpm 18 rpm 98.1 F 171.5 lbs 65 in 28.54 kg/m2 1.89 m2 97 % 04/20/2012 8:04:00 AM 128 mmHg 70 mmHg 72 bpm 18 rpm 98.9 F 172 lbs 65 in 28.622 kg/m 1.8916 m 01/11/2012 8:07:00 AM 122 mmHg 70 mmHg 76 bpm 18 rpm 98.2 F 176 lbs 65 in 29.29 kg/m2 1.91 m2 11/29/2011 8:20:00 AM 124 mmHg 66 mmHg 70 bpm 18 rpm 99.1 F 175 lbs 65 in 29.1212 kg/m 1.908 m 09/30/2011 8:17:00 AM 124 mmHg 70 mmHg 70 bpm 16 rpm 98.2 F 165 lbs 65 in 27.46 kg/m2 1.85 m2 07/04/2011 8:40:00 AM 132 mmHg 70 mmHg 76 bpm 18 rpm 99.1 F 169 lbs 65 in 28.1228 kg/m 1.875 m 05/24/2011 8:05:00 AM 101 mmHg 62 mmHg 98 bpm 98.5 F 167 lbs 65 in 27.79 kg/m2 1.86 m2 97 % 03/18/2011 8:01:00 AM 98 mmHg 56 mmHg 87 bpm 18 rpm 97.2 F 167.562 lbs 98 % 01/14/2011 8:04:00 AM 128 mmHg 72 mmHg 76 bpm 16 rpm 97.4 F 163.25 lbs 11/02/2010 3:45:00 PM 128 mmHg 78 mmHg 76 bpm 18 rpm 99 F 158 lbs 65 in 26.2923 kg/m 1.8129 m 09/23/2010 8:24:00 AM 130 mmHg 74 mmHg 70 bpm 16 rpm 98.4 F 162 lbs 65 in 26.96 kg/m2 1.84 m2 07/21/2010 8:17:00 AM 112 mmHg 60 mmHg 68 bpm 18 rpm 97.5 F 165 lbs 65 in 27.4572 kg/m 1.8527 m 07/13/2010 10:34:00 AM 128 mmHg 78 mmHg 74 bpm 18 rpm 98.3 F 165 lbs 05/25/2010 8:08:00 AM 122 mmHg 78 mmHg 68 bpm 16 rpm 96.7 F 169.5 lbs 04/05/2010 11:30:00 AM 126 mmHg 72 mmHg 68 bpm 16 rpm 97.1 F 179.5 lbs 65 i n 29.8701 kg/m 1.9324 m 02/17/2010 3:30:00 PM 124 mmHg 72 mmHg 64 bpm 16 rpm 97.6 F 181 lbs 01/11/2010 9:04:00 AM 122 mmHg 70 mmHg 64 bpm 16 rpm 97.1 F 183.5 lbs 65 in 30.5357 kg/m 1.9538 m 11/25/2009 8:49:00 AM 128 mmHg 78 mmHg 70 bpm 16 rpm 98.9 F 185 lbs 65 in 30.79 kg/m2 1.96 m2 10/27/2009 8:13:00 AM 130 mmHg 72 mmHg 78 bpm 16 rpm 98 F 190 lbs 65 in 31.6173 kg/m 1.9881 m 08/27/2009 3:45:00 PM 92 mmHg 68 mmHg 192 lbs 07/21/2009 3:10:00 PM 128 mmHg 88 mmHg 72 bpm 20 rpm 99.6 F 193 lbs 65 in 32.12 kg/m2 2.0037 m 04/22/2009 9:09:00 AM 105 mmHg 72 mmHg 80 bpm 18 rpm 98.1 F 198 lbs 65 in 32.9486 kg/m 2.03 m2 Social History Name Description Comments Uses seatbelts Alcohol Current some day social use Tobacco Current every day smoker History of Procedures Date Ordered Description Order Status 04/13/2015 12:00 AM Bicillin CR, 1.2 million units [facility]# 6079 3-600-10 Reviewed 11/30/2015 12:00 AM COMPLETE [...] Reviewed 09/10/2013 12:00 AM MAMMOGRAM SCREENING Reviewed 10/01/2013 12:00 AM CHYLMD TRACH DNA AMP PROBE Reviewed 10/01/2013 12:00 AM N.GONORRHOEAE DNA AMP PROB Reviewed 10/01/2013 12:00 AM SMEAR WET MOUNT SALINE/INK Reviewed 10/21/2013 12:00 AM ASSAY THYROID STIM HORMONE Reviewed 10/21/2013 12:00 AM ASSAY OF GONADOTROPIN (FSH) Reviewed 02/17/2010 12:00 AM URINE CULTURE/COLONY COUNT [...] Reviewed 01/14/2011 12:00 AM Bicillin CR 1.2 [facility]#[id number] Clini c Reviewed 02/12/2015 12:00 AM COMPLETE [...] Ql Strip negative WBC # Ur negative History Of Immunizations Not available. History of Past Illness Name Date of Onset Comments Routine gynecological examination Apr 22 2009 9:48AM Abscess Apr 22 2009 9:48AM Anxiety disorder Depressive disorder Stress Incontinence, Female Chronic Gastric Ulcer Thoracic Spine Pain lumbar back pain Spondylolisthesis, Acquired Costochondritis Obesity Weight Loss Jul 21 2009 3:14PM Major depressive disorder, recurrent episode; mild Jul 21 10 3:14PM Cellulitis and abscess of finger; unspecified [...] Dr. Kerns-Polyp at 25 cm Colitis Abdominal Pain Dietary Counseling Apr 05 2010 11:30AM Exercise [...] 30-39, adult; body mass index 32.0-32.9, adult b 2013 8:33AM Anxiety Disorder Jul 08 2013 [...] 2019 10:41AM Obesity Jan 14 2019 10:41AM Payers Insurance Name Company Name Plan Name Plan Number Policy Number Quirino cy Group Number Start Date BCBS [facility] [id number] N/ A [employer] Financial Assistance [employer] Fin [facility] G[facility] 50 percent clinics June Early Detection Works Early Detection Works [id number] Friday, August 17, 2012 BCBS Bcbs [facility] [id number] We dnMay 28, 2014 History of Encounters Visit Date Visit Type Provider 01/14/2019 Office visit Kasi Isaiah DO 12/24/2018 Office visit Didi Ashford APR N 11/16/2018 Procedures Jakesuzette Bella DO 10/31/2018 Office visit Kasi Isaiah DO [...] Victor MD 05/13/2015 Office visit Magda Chen BLUE CRABBER 04/13/2015 Office visit Magda Chen BLUE CRABBER 03/23/2015 Office visit Ji Victor MD 03/13/2015 [facility] Ji Victor MD 03/02/2015 Office visit Ji Victor MD 02/12/2015 Office visit Kasi Colon DO 09/09/2014 Office visit Kasi Colon DO 02/24/2014 Office visit Ji Victor MD 12/30/2013 Office visit Ji Victor MD 11/25/2013 Office visit Ji Victor MD 11/14/2013 Hospital Ji Victor MD 11/04/2013 Office visit Ji Victor MD 11/04/2013 Office visit Kasi Isaiah DO 10/21/2013 Office visit Kb Perry MD 10/01/2013 Office visit Kb Perry MD 09/10/2013 Office visit Kasi Isaiah DO 07/08/2013 Office visit Magda Gustavo PRIETO 02/18/2013 Office visit Kasi Isaiah DO 10/24/2012 [...] Kasi Isaiah DO 05/25/2010 Office visit Meenakshi WEINBERG 04/05/2010 Office visit Meenakshi WEINBERG 02/17/2010 Office visit Meenakshi Singh PA 01/11/2010 Office visit Meenakshi Singh PA 11/25/2009 Office visit Kasi Isaiah DO 10/27/2009 Office visit Kasi Isaiah DO 08/27/2009 Nurse visit Jerilyn WEINBERG 08/27/2009 Voided Meenakshi Singh PA 07/21/2009 Office visit Jerilyn Colindres PA 04/22/2009 Office visit Meenakshi WEINBERG 04/07/2009 Office visit Jerilyn Colindres PA 03/03/2009 Office visit Kasi Colon DO 02/23/2009 Office visit Jitendra Kerns MD 02/18/2009 Surgery Jitendra Kerns MD 02/16/2009 Surgery Jitendra Kerns MD 02/06/2009 Surgery Jitendra Kerns MD 02/05/2009 Office visit Jitendra Kerns MD
--- OUTSIDE RECORDS SUMMARY | 2019-08-23 11:07 | XMS REPORT ---
Author Author Lindsey Colon Organization [facility] Address [address] [place], [place] [address] Care Team Providers Care Nailer Hand Name Role Phone Kasi Colon PCP Kasi [...] tablets,dose pack 07/13/2010 09/23/2010 take as directed xnpxhasc-nmejisoxh-OF 3.5-10,000-10 mg-unit-mg/mL opht halmic drops,suspension 07/13/2010 09/23/2010 [...] Active Depressive Disorder Active Colitis Active Abdominal Pain Active Colonic [...] 12:00 AM Bicillin CR, 1.2 million units [facility]# 6079 3-600-10 Reviewed 11/30/2015 12:00 AM [...] Reviewed 01/14/2011 12:00 AM Bicillin CR 1.2 [facility]#[id number] Clini c Reviewed 02/12/2015 12:00 AM COMPLETE [...] Foot pain, left Jan 14 2019 10:41AM Payers Insurance Name Company Name Plan Name Plan Number Policy Number Quirino cy Group Number [facility] [id number] N/ A [employer] Financial Assistance [employer] Fin ancial Gio 50 percent clinics June Early Detection Works Early Detection Works [id number] Friday, August 17, 2012 BCBS [facility] [id number] We May 28, 2014 History of Encounters [...] Victor MD 05/13/2015 Office visit Magda Chen CELL LEAD 04/13/2015 Office visit Magda Chen APRN 03/23/2015 Office visit Ji Victor MD 03/13/2015 Hospital Ji Victor MD 03/02/2015 Office visit [...] Isaiah DO 07/08/2013 Office visit Magda Chen CONNER 02/18/2013 Office visit Kasi Isaiah DO 10/24/2012 Office visit Kasi Isaiah DO 10/15/2012 Office visit Kasi Isaiah DO 06/21/2012 Office visit Kasi Isaiah DO 04/20/2012 Office visit Kasi Isaiah DO 01/11/2012 Office visit Ksai Isaiah DO 11/29/2011 Office visit Kasi Isaiah [...] visit Meenakshi WEINBERG 02/17/2010 Office visit Meenakshi WEINBERG 01/11/2010 Office visit Meenakshi Singh PA 11/25/2009 [...] Surgery Jitendra Kerns MD 02/05/2009 Office visit Jitednra Kerns MD
--- OUTSIDE RECORDS SUMMARY | 2019-08-23 11:08 | XMS REPORT ---
Author Author Lindsey Ashford Organization [facility] Address [address] [place], [place] [address] Care Team Providers Care Analyst Programmer Name Role Phone Didi Ashford PCP IsaiahKasi santana PreferredProvider Allergies and Adverse Reactions Name Reaction [...] oral route every 6 hours as needed Name Start Date Expiration Date SIG Comments [...] tablets,dose pack 07/13/2010 09/23/2010 take as directed pnsuxsky-wozgkshwo-QK 3.5-10,000-10 mg-unit-mg/mL opht halmic drops,suspension 07/13/2010 09/23/2010 [...] HC BMI BSA BMI Percentile O2 Sat(%) 12/24/2018 12:44:00 PM 118 mmHg 78 mmHg 91 bpm 18 rpm 98.2 F 218.5 lbs 64 i n 37.5051 kg/m 2.1155 m 97 % 11/16/2018 11:06:00 AM 122 mmHg 64 mmHg 107 bpm 97.9 F 215 lbs 64 in 36.90 kg/m2 2.10 m2 95 % 10/31/2018 8:02:00 AM 128 mmHg 60 mmHg 82 bpm 18 rpm 98.8 F 214 lbs 64 in 36.7326 kg/m 2.0936 m 99 % 08/28/2018 8:48:00 AM 130 mmHg 66 mmHg 87 bpm 20 rpm 98.8 F 213 lbs 64 in 36.56 kg/m2 2.09 m2 97 % 07/11/2018 9:58:00 AM 128 mmHg 88 mmHg 96 bpm 18 rpm 97.9 F 204.375 lbs 64 i n 35.0805 kg/m 2.046 m 98 % 06/19/2018 8:54:00 AM 126 mmHg 62 mmHg 94 bpm 18 rpm 98.6 F 210 lbs 64 in 36.05 kg/m2 2.07 m2 96 % 05/11/2018 8:46:00 AM 130 mmHg 66 mmHg 88 bpm 20 rpm 98.8 F 206 lbs 64 in 35.3595 kg/m 2.0541 m 99 % 04/09/2018 9:08:00 AM 130 mmHg 66 mmHg 91 bpm 18 rpm 98.6 F 202 lbs 64 in 34.67 kg/m2 2.03 m2 96 % 03/11/2018 1:45:00 PM 114 mmHg [...] F 193 lbs 65 in 32.12 kg/m2 2.00 m2 04/22/2009 9:09:00 AM 105 mmHg 72 mmHg 80 bpm 18 rpm 98.1 F 198 lbs 65 in 32.9486 kg/m 2.0295 m Social History Name Description Comments Uses seatbelts Alcohol Current some day social use Tobacco Current every day smoker History of Procedures Date Ordered Description Order Status 04/13/2015 12:00 AM Bicillin CR, 1.2 million units [facility]# 6079 3-600-10 Reviewed 11/30/2015 12:00 AM COMPLETE [...] 12/24/2018 12:00 AM THER/PROPH/DIAG INJ SC/IM Reviewed 09/10/2013 12:00 AM CYTOPATH C/V THIN LAYER [...] Reviewed 01/14/2011 12:00 AM Bicillin CR 1.2 [facility]#[id number] Clini c Reviewed 02/12/2015 12:00 AM COMPLETE [...] otitis media, recurrence not specified Ja n 11 2016 9:46AM Eustachian tube dysfunction, right Jul [...] Left Plantar fasciitis Dec 24 2018 12:47PM Payers Insurance Name Company Name Plan Name Plan Number Policy Number Quirino cy Group Number Start Date [facility] [id number] N/ A [employer] Financial Assistance [employer] [facility] ancial [employer] 50 percent clinics June Early Detection Works Early Detection Works [id number] Friday, August 17, 2012 [facility] [id number] May 28, 2014 History of Encounters Visit Date Visit Type Provider 12/24/2018 Office visit Didi Ashford APR N 11/16/2018 Procedures Jake Solo DO 10/31/2018 Office visit Kasi Colon DO 08/28/2018 Office visit Kasi Colon DO 07/11/2018 Office visit Kasi Colon DO 06/19/2018 Office visit Kasi Colon DO 05/11/2018 Office visit Kasi Colon DO 04/09/2018 Office visit Kasi Colon DO 03/11/2018 Office visit Ruth EL RN [...] Victor MD 05/13/2015 Office visit Magda Chen CLIENT SERVICES ASSOCIATE 04/13/2015 Office visit Magda Chen CLIENT SERVICES ASSOCIATE 03/23/2015 Office visit Ji Victor MD 03/13/2015 [facility] Ji Victor MD 03/02/2015 Office visit Ji Victor MD 02/12/2015 Office visit Kasi Isaiah DO 09/09/2014 Office visit Kasi Isaiah DO 02/24/2014 Office visit Ji Victor MD 12/30/2013 Office visit Ji Victor MD 11/25/2013 Office visit Ji Victor MD 11/14/2013 [facility] Ji Victor MD 11/04/2013 Office visit Ji Victor MD 11/04/2013 Office visit Kasi Isaiah DO 10/21/2013 Office visit Kb Perry MD 10/01/2013 Office visit Kb Perry MD 09/10/2013 Office visit Kasi Isaiah DO 07/08/2013 Office visit Magda Chen CLIENT SERVICES ASSOCIATE 02/18/2013 Office visit Kasi Isaiah DO 10/24/2012 Office visit Kasi Isaiah DO 10/15/2012 Office visit Kasi Isaiah DO 06/21/2012 Office visit Kasi Isaiah DO 04/20/2012 Office visit Kasi Isaiah DO 01/11/2012 Office visit Kasi Isaiah DO 11/29/2011 Office visit Kasi Isaiah DO 09/30/2011 Office visit Kasi Colon DO 07/04/2011 Office visit Kasi Colon DO 05/24/2011 Office visit Kasi Colon DO 03/18/2011 Voided Kasi Isaiah DO 01/14/2011 Office visit Meenakshi Singh PA 11/02/2010 Office visit Kasi Colon DO 09/23/2010 Office visit Kasi Colon DO 07/21/2010 Office visit Kasi Colon DO 07/13/2010 Office visit Kasi Colon DO 05/25/2010 Office visit Meenakshi Singh PA 04/05/2010 Office visit Meenakshi WEINBERG 02/17/2010 Office visit Meenakshi Singh PA 01/11/2010 Office visit Meenakshi Singh PA 11/25/2009 Office visit Kasi Colon DO 10/27/2009 Office visit Kasi Colon DO 08/27/2009 Nurse visit Jerilyn Colindres PA [...]
--- OUTSIDE RECORDS SUMMARY | 2019-08-23 11:09 | XMS REPORT ---
Author Author Lindsey Ashford Organization [facility] Address [address] [place], [place] [address] Care Team Providers Care Pulp Refiner Operator Name Role Phone Didi Ashford PCP IsaiahKasi [...] tablets,dose pack 07/13/2010 09/23/2010 take as directed ezrrqtko-fyfvttbrk-XX 3.5-10,000-10 mg-unit-mg/mL opht halmic drops,suspension 07/13/2010 09/23/2010 [...] 12:00 AM Bicillin CR, 1.2 million units [facility]# 6079 3-600-10 Reviewed 11/30/2015 12:00 [...] Reviewed 01/14/2011 12:00 AM Bicillin CR 1.2 [facility]#[id number] Clini c Reviewed 02/12/2015 12:00 AM COMPLETE [...] Number Quirino cy Group Number Start Date [facility] [id number] N/ A DNS:Net Financial Assistance DNS:Net [facility] ancial [employer]io 50 percent clinics June Early Detection Works Early Detection Works [id number] Friday, August 17, 2012 [facility] [id number] May 28, 2014 History of Encounters Visit [...] Victor MD 05/13/2015 Office visit Magda Chen DIRT BIKE RACER 04/13/2015 Office visit Magda Chen DIRT BIKE RACER 03/23/2015 Office visit Ji Victor MD 03/13/2015 [facility] Ji Victor MD 03/02/2015 Office visit Ji Victor MD 02/12/2015 Office visit Kasi Isaiah DO 09/09/2014 Office visit Kasi Isaiah DO 02/24/2014 Office visit Ji Victor MD 12/30/2013 Office visit Ji Victor MD 11/25/2013 Office visit Ji Victor MD 11/14/2013 [facility] Ji Victor MD 11/04/2013 Office visit Ji Victor MD 11/04/2013 Office visit Kasi Isaiah DO 10/21/2013 Office visit Kb Perry MD 10/01/2013 Office visit Kb Perry MD 09/10/2013 Office visit Kasi Isaiah DO 07/08/2013 Office visit Magda Chen DIRT BIKE RACER 02/18/2013 Office visit Kasi Isaiah DO 10/24/2012 [...]
--- OUTSIDE RECORDS SUMMARY | 2019-08-23 11:09 | XMS REPORT ---
Author Author Lindsey Solo Organization [facility] Address [address] [place], [place] [address] Care Team Providers Care Swim Coach Name Role Phone Jake oSlo PCP IsaiahKasi santana PreferredProvider Allergies and Adverse [...] 1 TABLET BY MOUTH ONCE A DAY benzonatate 200 mg oral capsule 10/25/2018 take 1 capsule (200 mg) by oral route 3 times per day Sudogest 30 mg oral tablet 10/25/2018 take 2 tablets (60 mg) by oral route every 6 hours as needed paroxetine HCl 20 mg oral tablet 10/31/2018 10/26/2019 take 2.5 tablets by oral route daily for 90 days Name Start Date Expiration Date SIG [...] daily in the evening for 30 days Discontinued Name Start Date Discontinued Date [...] tablets,dose pack 07/13/2010 09/23/2010 take as directed rsxbjqud-uizvimnpd-OW 3.5-10,000-10 mg-unit-mg/mL opht halmic drops,suspension 07/13/2010 09/23/2010 [...] HC BMI BSA BMI Percentile O2 Sat(%) 11/16/2018 11:06:00 AM 122 mmHg 64 mmHg [...] 12:00 AM Bicillin CR, 1.2 million units [facility]# 6079 3-600-10 Reviewed 11/30/2015 12:00 [...] MUSC TEST DONE W/N TEST COMP Reviewed 09/10/2013 12:00 AM CYTOPATH C/V THIN [...] Reviewed 01/14/2011 12:00 AM Bicillin CR 1.2 [facility]#[id number] Clini c Reviewed 02/12/2015 12:00 AM COMPLETE [...] 08/28/2018 9:40 AM TSH 0.75 Estradiol 12.0 LH 2 2.1 FSH 55.0 08/29/2018 8:40 AM Clarity Ur [...] Acute Jul 13 2010 10:36AM Conjunctivitis, Bilateral b 2010 10:36AM Routine gynecological examination Jul 21 [...] acute serous otitis media, recurrence not specified n 11 2016 9:46AM Eustachian tube dysfunction, [...] 11:08AM Cervical radiculopathy Nov 16 2018 11:08AM Payers Insurance Name Company Name Plan Name Plan Number Policy Number Quirino cy Group Number Start Date [employer] [place] [id number] N/ A Intermolecular Financial Assistance [facility]termolecular [facility] June Early Detection Works Early Detection Works [id number] Friday, August 17, 2012 [employer] [place] [id number] May 28, 2014 History of Encounters Visit Date Visit Type Provider 11/16/2018 Procedures Jakesuzette Solo DO 10/31/2018 Office visit Kasi Colon DO 08/28/2018 Office visit Kasi Colon DO 07/11/2018 Office visit Kasi Colon DO 06/19/2018 Office visit Kasi Colon DO 05/11/2018 Office visit Kasi Colon DO 04/09/2018 Office visit Kasi Colon DO 03/11/2018 Office visit Ruth EL RN 12/25/2017 Office visit Kasi Colon DO 12/11/2017 Office visit JI WEINBERG 09/12/2017 Office visit JI WEINBERG 07/18/2017 Office visit JI WEINBERG 03/14/2017 Office visit Kasi Colon DO 01/31/2017 Office visit JI WEINBERG 11/28/2016 Office visit JI WEINBERG 11/01/2016 Office visit JI WEINBERG 08/16/2016 Office visit Kasi Colon DO 07/04/2016 Office visit Kasi Isaiah DO 06/15/2016 Office visit Kasi Isaiah DO 05/02/2016 Office visit Kasi Isaiah DO 02/24/2016 Office visit Kasi Isaiah DO 11/30/2015 Office visit Kasi Isaiah DO 11/24/2015 Office visit Ji Victor MD 05/13/2015 Office visit Magda Chen RIPRAP WORKER 04/13/2015 Office visit Magda Chen RIPRAP WORKER 03/23/2015 Office visit Ji Victor MD 03/13/2015 Hospital Ji Victor MD 03/02/2015 Office visit Ji Victor MD 02/12/2015 Office visit Kasi Isaiah DO 09/09/2014 Office visit Kasi Isaiah DO 02/24/2014 Office visit Ji Victor MD 12/30/2013 Office visit Ji Victor MD 11/25/2013 Office visit Ji Victor MD 11/14/2013 [facility] Ji Victor MD 11/04/2013 Office visit Ji Victor MD 11/04/2013 Office visit Kasi Isaiah DO 10/21/2013 Office visit Kb Perry MD 10/01/2013 Office visit Kb Perry MD 09/10/2013 Office visit Kasi Isaiah DO 07/08/2013 Office visit Magda Chen RIPRAP WORKER 02/18/2013 Office visit Kasi Isaiah DO 10/24/2012 [...] Kasi Isaiah DO 01/14/2011 Office visit Meenakshi WEINBERG 11/02/2010 Office visit Kasi Isaiah DO 09/23/2010 Office visit Kasi Isaiah DO 07/21/2010 Office visit Kasi Isaiah DO 07/13/2010 Office visit Kasi Isaiah DO 05/25/2010 Office visit Meenakshi WEINBERG 04/05/2010 Office visit Meenakshi WEINBERG 02/17/2010 Office visit Meenakshi Singh PA 01/11/2010 Office visit Meenakshi WEINBERG 11/25/2009 Office visit Kasi Colon DO 10/27/2009 [...]
--- OUTSIDE RECORDS SUMMARY | 2019-08-23 11:10 | XMS REPORT ---
Author Author Lindsey Solo Organization [facility] Address [address] [place], [place] [address] Care Team Providers Care Certified Industrial Hygienist Name Role Phone Jake Solo PCP IsaiahKasi santana PreferredProvider Allergies and Adverse Reactions Name Reaction Notes NO KNOWN DRUG ALLERGIES Plan of Treatment Planned Activity Comments Planned Date Planned Time Plan/Goal Basic metabolic profile 05/13/2015 12:00 AM Nerve conduction studies; 9-10 studies 11/26/2018 12 :00 AM Needle Electromyography, each extremity, complete 11/26 12:00 AM Medications Active Name Start Date [...] Xanax 0.5 mg oral tablet 11/01/2016 12/01/2016 1/ to 1 twice daily as needed for [...] tablets,dose pack 07/13/2010 09/23/2010 take as directed ojuupwfl-ywrobalet-PQ 3.5-10,000-10 mg-unit-mg/mL opht halmic drops,suspension 07/13/2010 09/23/2010 [...] AM Bicillin CR, 1.2 million units [facility]# 6079 3-600-10 Reviewed 11/30/2015 12:00 AM [...] 12:00 AM ASSAY THYROID STIM HORMONE Reviewed 09/10/2013 12:00 AM CYTOPATH C/V THIN [...] 01/14/2011 12:00 AM Bicillin CR 1.2 [facility]#[id number] Clini c Reviewed 02/12/2015 12:00 AM COMPLETE [...] 30-39, adult; body mass index 32.0-32.9, adult Feb 2013 8:33AM Anxiety Disorder Jul 08 2013 [...] cy Group Number Start Date BCBS Bcbs [facility] [id number] N/ A [employer] Financial Assistance [employer] [facility] ancial Gio 50 percent clinics June Early Detection Works Early Detection Works [id number] Friday, August 17, 2012 BCBS Bcbs [facility] [id number] We May 28, 2014 History of Encounters [...] Victor MD 05/13/2015 Office visit Magda Chen EXPORT ADMINISTRATOR 04/13/2015 Office visit Magda Chen EXPORT ADMINISTRATOR 03/23/2015 Office visit Ji Victor MD 03/13/2015 Hospital Ji Victor MD 03/02/2015 Office visit Ji Victor MD 02/12/2015 Office visit Kasi Isaiah DO 09/09/2014 Office visit Kasi Isaiah DO 02/24/2014 Office visit Ji Victor MD 12/30/2013 Office visit Ji Victor MD 11/25/2013 Office visit Ji Victor MD 11/14/2013 [facility] Ji Victor MD 11/04/2013 Office visit Ji Victor MD 11/04/2013 Office visit Kasi Isaiah DO 10/21/2013 Office visit Kb Perry MD 10/01/2013 Office visit Kb Perry MD 09/10/2013 Office visit Kasi Isaiah DO 07/08/2013 Office visit Magda Gustavo EXPORT ADMINISTRATOR 02/18/2013 Office visit Kasi Isaiah DO 10/24/2012 [...] Kasi Isaiah DO 07/13/2010 Office visit Kasi Arshadhite DO 05/25/2010 Office visit Meenakshi WEINBERG 04/05/2010 Office visit Meenakshi WEINBERG 02/17/2010 Office visit Meenakshi WEINBERG 01/11/2010 Office visit Meenakshi WEINBERG 11/25/2009 Office visit Kasi Colon DO 10/27/2009 Office visit Kasi Colon DO 08/27/2009 Nurse visit Jerilyn WEINBERG 08/27/2009 Voided Meenakshi WEINBERG 07/21/2009 Office visit Jerilyn WEINBERG 04/22/2009 Office visit Meenakshi WEINBERG 04/07/2009 Office visit Jerilyn WEINBERG 03/03/2009 Office visit Kasi Colon DO 02/23/2009 Office visit Jitendra Kerns MD 02/18/2009 Surgery Jitendra Kerns MD 02/16/2009 Surgery Jitendra Kerns MD 02/06/2009 Surgery Jitendra Kerns MD 02/05/2009 Office visit Jitendra Kerns MD
--- OUTSIDE RECORDS SUMMARY | 2019-08-23 11:11 | XMS REPORT ---
Author Author Lindsey Colon Organization [facility] Address [address] [place], [place] [address] Care Team Providers Care Dipper Clock And Watch Hands Name Role Phone Kasi Colon PCP Kasi [...] tablets,dose pack 07/13/2010 09/23/2010 take as directed oxcymwdu-vdrldzcgt-EU 3.5-10,000-10 mg-unit-mg/mL opht halmic drops,suspension 07/13/2010 09/23/2010 [...] HC BMI BSA BMI Percentile O2 Sat(%) 10/31/2018 8:02:00 AM 128 mmHg 60 mmHg [...] 12:00 AM Bicillin CR, 1.2 million units [facility]# 6079 3-600-10 Reviewed 11/30/2015 12:00 AM [...] Reviewed 01/14/2011 12:00 AM Bicillin CR 1.2 [facility]#[id number] Clini c Reviewed 02/12/2015 12:00 AM COMPLETE [...] 2018 8:04AM Mononeuropathy Oct 31 2018 8:04AM Payers Insurance Name Company Name Plan Name Plan Number Policy Number Quirino cy Group Number Start Date [employer] [place] [id number] N/ A [employer] Financial Assistance [employer] [facility] ancial [employer] 50 percent clinics June Early Detection Works Early Detection Works [id number] Friday, August 17, 2012 [employer] [place] [id number] We May 28, 2014 History of Encounters Visit Date Visit Type Provider 10/31/2018 Office visit Kasi Colon DO 08/28/2018 Office visit Kasi Colon DO 07/11/2018 Office visit Kasi Colon DO 06/19/2018 Office visit Kasi Colon DO 05/11/2018 Office visit Kasi Colon DO 04/09/2018 Office visit Kasi Colon DO 03/11/2018 Office visit Ruth EL RN 12/25/2017 Office visit Kasi Colon DO 12/11/2017 Office visit IJ WEINBERG 09/12/2017 Office visit JI WEINBERG 07/18/2017 Office visit JI WEINBERG 03/14/2017 Office visit Kasi Colon DO 01/31/2017 Office visit JI WEINBERG 11/28/2016 Office visit JI WEINBERG 11/01/2016 Office visit JI WEINBERG 08/16/2016 Office visit Kasi Colon DO 07/04/2016 Office visit Kasi Isaiah DO 06/15/2016 Office visit Kasi Colon DO 05/02/2016 Office visit Kasi Colon DO 02/24/2016 Office visit Kasi Colon DO 11/30/2015 Office visit Kasi Colon DO 11/24/2015 Office visit Ji Victor MD 05/13/2015 Office visit Magda Chen APRN 04/13/2015 Office visit Magda Chen APRN 03/23/2015 Office visit Ji Victor MD 03/13/2015 [facility] Ji Victor MD 03/02/2015 Office visit Ji Victor MD 02/12/2015 Office visit Kasi Isaiah DO 09/09/2014 Office visit Kasi Isaiah DO 02/24/2014 Office visit Ji Victor MD 12/30/2013 Office visit Ji Victor MD 11/25/2013 Office visit Ji Victor MD 11/14/2013 [facility] Ji Victor MD 11/04/2013 Office visit Ji Victor MD 11/04/2013 Office visit Kasi Isaiah DO 10/21/2013 Office visit Kb Perry MD 10/01/2013 Office visit Kb Perry MD 09/10/2013 Office visit Kasi Isaiah DO 07/08/2013 Office visit Magda Chen APRN 02/18/2013 Office visit Kasi Isaiah DO 10/24/2012 [...]
--- OUTSIDE RECORDS SUMMARY | 2019-08-23 11:11 | XMS REPORT ---
Author Author Lindsey Colon Organization [facility] Address [address] [place], [place] [address] Care Team Providers Care Plumbing Hardware Assembler Name Role Phone Kasi Colon PCP Kasi [...] 1 TABLET BY MOUTH ONCE A DAY Debrox 6.5 % otic (ear) drops 08/29/2018 in still 5 drops into affected ear(s) by otic route 2 times per day cetirizine 10 mg oral tablet 09/24/2018 sirena e 1 tablet by oral route every 12 hours as needed paroxetine HCl 40 mg oral tablet 09/28/2018 09/23/2019 take 1 tablet (40 mg) by oral route once daily for 90 days benzonatate 200 mg oral capsule 10/25/2018 [...] Trintellix 10 mg oral tablet 11/01/2016 12/01/2016 sirnea e 1 tablet (10 mg) by oral [...] tablets,dose pack 07/13/2010 09/23/2010 take as directed bsrhqnlp-dvvphhfds-SA 3.5-10,000-10 mg-unit-mg/mL opht halmic drops,suspension 07/13/2010 09/23/2010 [...] then 1 tablet daily x 2 days Problem List Description Status Onset Anxiety disorder [...] HC BMI BSA BMI Percentile O2 Sat(%) 08/28/2018 8:48:00 AM 130 mmHg 66 mmHg [...] rpm 194 lbs 64 in 33.30 kg/m2 1.99 m2 98 % 05/13/2015 2:45:00 PM 120 mmHg 74 mmHg 103 bpm 18 rpm 97.6 F 190 lbs 64 in 32.6131 kg/m 1.9727 m 97 % 04/13/2015 3:10:00 PM 122 mmHg 62 mmHg 84 bpm 18 rpm 98.9 F 187 lbs 64 in 32.10 kg/m2 1.96 m2 98 % 03/02/2015 10:30:00 AM 116 mmHg [...] 12:00 AM Bicillin CR, 1.2 million units [facility]# 6079 3-600-10 Reviewed 11/30/2015 12:00 [...] Reviewed 01/14/2011 12:00 AM Bicillin CR 1.2 [facility]#[id number] Clini c Reviewed 02/12/2015 12:00 AM COMPLETE [...] acute serous otitis media, recurrence not specified 2016 9:46AM Eustachian tube dysfunction, right Jul [...] of right ear Aug 28 2018 8:50AM Payers Insurance Name Company Name Plan Name Plan Number Policy Number Quirino cy Group Number Start Date [employer] [place] [id number] N/ A [employer] Financial Assistance [employer] [facility] [address] [facility] June Early Detection Works Early Detection Works [id number] Friday, August 17, 2012 [employer]BS [employer] [place] [id number] We May 28, 2014 History of Encounters Visit Date Visit Type Provider 08/28/2018 Office visit Kasi Colon DO 07/11/2018 Office visit Kasi Isaiah DO [...] 03/23/2015 Office visit Ji Victor MD 03/13/2015 [facility] Ji Victor MD 03/02/2015 Office visit Ji [...] Kb Perry MD 09/10/2013 Office visit Kasi Colon DO 07/08/2013 Office visit Magda Chen CONNER 02/18/2013 Office visit Kasi Isaiah DO 10/24/2012 Office visit Kasi Isaiah DO 10/15/2012 Office visit Kasi Isaiah DO 06/21/2012 Office visit Kasi Isaiah DO 04/20/2012 Office visit Kasi Isaiah DO 01/11/2012 Office visit Kasi Isaiah DO 11/29/2011 Office visit Kasi Isaiah DO 09/30/2011 Office visit Kais Isaiah DO 07/04/2011 Office visit Kasi Isaiah DO 05/24/2011 Office visit Kasi Isaiah DO 03/18/2011 Voided Kasi Isaiah DO 01/14/2011 Office visit Meenakshi WEINBERG 11/02/2010 Office visit Kasi Leongte DO 09/23/2010 Office visit Kasi Isaiah DO 07/21/2010 Office visit Kasi Isaiah DO 07/13/2010 Office visit Kasi Leongte DO 05/25/2010 Office visit Meenakshi WEINBERG 04/05/2010 [...]
--- OUTSIDE RECORDS SUMMARY | 2019-08-23 11:12 | XMS REPORT ---
Author Author Lindsey Colon Organization [facility] Address [address] [place], [place] [address] Care Team Providers Care Mortgage Protection Sales Name Role Phone Kasi Colon PCP Kasi [...] oral route once daily for 28 days benzonatate 200 mg oral capsule 06/29/2018 take 1 capsule (200 mg) by oral route 3 times per day pantoprazole 40 mg oral tablet,delayed release (DR/EC) 07/21/2018 TAKE 1 TABLET BY MOUTH ONCE A DAY Debrox 6.5 % otic (ear) drops 08/29/2018 in still 5 drops into affected ear(s) by otic route 2 times per day Sudogest 30 mg oral tablet 09/14/2018 take 2 tablets (60 mg) by oral route every 6 hours as needed montelukast 10 mg oral tablet 09/24/2018 10/24/2018 ta ke 1 tablet (10 mg) by oral route once daily in the evening for 30 days cetirizine 10 mg oral tablet 09/24/2018 sirena e 1 tablet by oral route every 12 hours as needed paroxetine HCl 40 mg oral tablet 09/28/2018 09/23/2019 take 1 tablet (40 mg) by oral route once daily for 90 days Name Start Date [...] Xanax 0.5 mg oral tablet 11/01/2016 12/01/2016 1 to 1 twice daily as needed for [...] 4 times a day for 5 days Discontinued Name Start Date Discontinued Date [...] tablets,dose pack 07/13/2010 09/23/2010 take as directed kuoqjovn-bhfzmstkv-CE 3.5-10,000-10 mg-unit-mg/mL opht halmic drops,suspension 07/13/2010 09/23/2010 [...] 25 mg oral tablet 04/09/2014 09/09/2014 t blanac 1 tablet (25 mg) by oral route [...] F 194 lbs 66 in 31.3121 kg/m 2.0243 m 100 % 11/24/2015 11:46:00 AM 112 mmHg [...] rpm 98.1 F 198 lbs 65 in 32.95 kg/m2 2.0295 m Social History Name Description Comments Uses seatbelts Alcohol Current some day social use Tobacco Current every day smoker History of Procedures Date Ordered Description Order Status 04/13/2015 12:00 AM Bicillin CR, 1.2 million units [facility]# 6079 3-600-10 Reviewed 11/30/2015 12:00 [...] 01/14/2011 12:00 AM Bicillin CR 1.2 [facility]#[id number] Clini c Reviewed 02/12/2015 12:00 AM COMPLETE [...] Group Number Start Date [employer]BS [employer] [place] [id number] N/ A [employer] Financial Assistance [employer] [facility] 50 percent [facility] June Early Detection Works Early Detection Works [id number] Friday, August 17, 2012 [employer]BS [employer] [place] [id number] We May 28, 2014 History of Encounters [...] 03/23/2015 Office visit Ji Victor MD 03/13/2015 [facility] Ji Victor MD 03/02/2015 Office visit Ji Victor MD 02/12/2015 Office visit Kasi Colon DO 09/09/2014 Office visit Kasi Colon DO 02/24/2014 Office visit Ji Victor MD 12/30/2013 Office visit Ji Victor MD 11/25/2013 Office visit Ji Victor MD 11/14/2013 [facility] Ji Victor MD 11/04/2013 Office visit [...]
--- OUTSIDE RECORDS SUMMARY | 2019-08-23 11:13 | XMS REPORT ---
Author Author Lindsey Colon Organization [facility] Address [address] [place], [place] [id number] Care Team Providers Care Speech Therapist Name Role Phone Kasi Colon PCP Kasi [...] BY MOUTH ONCE A DAY paroxetine HCl 30 mg oral tablet 08/29/2018 08/24/2019 take 1 tablet (30 mg) by oral route once daily for 90 days Debrox 6.5 % otic (ear) drops [...] oral route every 12 hours as needed Name Start Date Expiration [...] tablets,dose pack 07/13/2010 09/23/2010 take as directed qjkpihxg-wdepnshsa-ZD 3.5-10,000-10 mg-unit-mg/mL opht halmic drops,suspension 07/13/2010 09/23/2010 [...] 12:00 AM Bicillin CR, 1.2 million units [facility]# 6079 3-600-10 Reviewed 11/30/2015 12:00 AM COMPLETE [...] Reviewed 01/14/2011 12:00 AM Bicillin CR 1.2 [facility]#[id number] Clini c Reviewed 02/12/2015 12:00 AM COMPLETE [...] Group Number Start Date BCBS [employer] [place] [id number] N/ A [employer] Financial Assistance [place] [facility] [address] [facility] June Early Detection Works Early Detection Works [id number] [phone] Friday, August 17, 2012 BCBS [employer] [place] [id number] We May 28, 2014 History of Encounters [...] 03/23/2015 Office visit Ji Victor MD 03/13/2015 [facility] Ji Victor MD 03/02/2015 Office visit Ji Victor MD 02/12/2015 Office visit Kasi Colon DO 09/09/2014 Office visit Kasi Colon DO 02/24/2014 Office visit Ji Victor MD 12/30/2013 Office visit Ji Victor MD 11/25/2013 Office visit Ji Victor MD 11/14/2013 [facility] Ji Victor MD 11/04/2013 Office visit [...]
--- OUTSIDE RECORDS SUMMARY | 2019-08-23 11:13 | XMS REPORT ---
Author Author Lindsey Colon Organization [facility] Address [address] [place], [place] [address] Care Team Providers Care Facility Attendant Name Role Phone Kasi Colon PCP Kasi Colon PreferredProvider Allergies and Adverse Reactions Name Reaction Notes NO KNOWN DRUG ALLERGIES Plan of Treatment Planned Activity Comments Planned Date Planned Time Plan/Goal Basic metabolic profile 05/13/2015 12:[address] w/o contrast 08/28/2018 12:00 AM Medications Active Name Start Date [...] 1 TABLET BY MOUTH ONCE A DAY Sudogest 30 mg oral tablet 08/06/2018 take 2 tablets (60 mg) by oral route every 6 hours as needed paroxetine HCl 30 mg oral tablet 08/29/2018 08/24/2019 take 1 tablet (30 mg) by oral route once daily for 90 days Debrox 6.5 % otic (ear) drops 08/29/2018 in still 5 drops into affected ear(s) by otic route 2 times per day Name Start Date Expiration Date SIG Comments [...] tablets,dose pack 07/13/2010 09/23/2010 take as directed rrpqizdr-taprsqond-EK 3.5-10,000-10 mg-unit-mg/mL opht halmic drops,suspension 07/13/2010 09/23/2010 [...] 12:00 AM Bicillin CR, 1.2 million units [facility]# 6079 3-600-10 Reviewed 11/30/2015 12:00 AM [...] 07/11/2018 12:00 AM Phenergan 50mg Injection Reviewed 08/29/2018 8:40 AM URINALYSIS AUTO W/O SCOPE [...] Reviewed 01/14/2011 12:00 AM Bicillin CR 1.2 [facility]#[id number] Clini c Reviewed 02/12/2015 12:00 AM COMPLETE [...] cy Group Number Start Date BCBS Bcbs [facility] [id number] N/ A [employer] Financial Assistance [employer] Fin ancial [employer] 50 percent clinics June Early Detection Works Early Detection Works [id number] Friday, August 17, 2012 BCBS Bcbs [facility] [id number] We May 28, 2014 History of Encounters Visit Date Visit Type Provider 08/28/2018 Office visit Kasi Arshadhite DO 07/11/2018 Office visit Kasi Isaiah DO [...] Office visit Ji Victor MD 03/13/2015 [facility] Ji Victor MD 03/02/2015 Office visit Ji Victor MD 02/12/2015 Office visit Kasi Colon DO 09/09/2014 Office visit Kasi Colon DO 02/24/2014 Office visit Ji Victor MD 12/30/2013 Office visit Ji Victor MD 11/25/2013 Office visit Ji Victor MD 11/14/2013 [facility] Ji Victor MD 11/04/2013 Office visit Ji Victor MD 11/04/2013 Office visit Kasi Colon DO 10/21/2013 Office visit Kb Perry MD 10/01/2013 Office visit Kb Perry MD 09/10/2013 Office visit Kasi Colon DO 07/08/2013 Office visit Magda Chen HELMET HAT PUNCHER 02/18/2013 Office visit Kasi Isaiah DO 10/24/2012 [...] Meenakshi Singh PA 11/02/2010 Office visit Kasi Arshadhite DO 09/23/2010 Office visit Kasi Isaiah DO 07/21/2010 Office visit Kasi Isaiah DO 07/13/2010 Office visit Kasi Colon DO 05/25/2010 Office visit Meenakshi WEINBERG 04/05/2010 [...]
--- OUTSIDE RECORDS SUMMARY | 2019-08-23 11:14 | XMS REPORT ---
Author Author Lindsey Colon Organization [facility] Address [address] [place], [place] [address] Care Team Providers Care Health Information Management Director Name Role Phone Kasi Colon PCP Ksai Colon PreferredProvider Allergies and Adverse Reactions Name [...] tablets,dose pack 07/13/2010 09/23/2010 take as directed wtitejfd-wscmlzjsw-YW 3.5-10,000-10 mg-unit-mg/mL opht halmic drops,suspension 07/13/2010 09/23/2010 [...] 12:00 AM Bicillin CR, 1.2 million units [facility]# 6079 3-600-10 Reviewed 11/30/2015 12:00 AM [...] Phenergan 50mg Injection Reviewed 08/28/2018 12:00 AM ASSAY OF ESTRADIOL Reviewed 08/28/2018 12:00 AM ASSAY OF GONADOTROPIN (LH) Reviewed 08/28/2018 12:00 AM ASSAY OF GONADOTROPIN (FSH) Reviewed 08/28/2018 12:00 AM ASSAY THYROID STIM HORMONE Reviewed 08/29/2018 8:40 AM URINALYSIS AUTO W/O SCOPE Reviewed 09/10/2013 12:00 AM CYTOPATH C/V THIN [...] Reviewed 01/14/2011 12:00 AM Bicillin CR 1.2 [facility]#[id number] Clini c Reviewed 02/12/2015 12:00 AM COMPLETE [...] Estradiol 12.0 LH 2 2.1 FSH 55.0 History Of Immunizations Not available. History of [...] Colonic Polyps, Personal History of 2008 Dr. eKrns-Polyp at 25 cm Colitis Abdominal pain Dietary [...] 8:50AM Sinusitis, chronic Aug 28 2018 2:14PM Payers Insurance Name Company Name Plan Name Plan Number Policy Number Quirino cy Group Number [facility] Date [facility] [id number] N/ A [employer] Financial Assistance [employer] [facility] ancial [employer] 50 percent clinics June Early Detection Works Early Detection Works [id number] Friday, August 17, 2012 [id number] May 28, 2014 History of Encounters Visit [...] Victor MD 05/13/2015 Office visit Magda Chen SAFETY AND HEALTH MANAGER 04/13/2015 Office visit Magda Chen SAFETY AND HEALTH MANAGER 03/23/2015 Office visit Ji Victor MD 03/13/2015 [facility] Ji Victor MD 03/02/2015 Office visit Ji Victor MD 02/12/2015 Office visit Kasi Isaiah DO 09/09/2014 Office visit Kasi Isaiah DO 02/24/2014 Office visit Ji Victor MD 12/30/2013 Office visit Ji Victor MD 11/25/2013 Office visit Ji Victor MD 11/14/2013 [facility] Ji Victor MD 11/04/2013 Office visit Ji Victor MD 11/04/2013 Office visit Kasi Isaiah DO 10/21/2013 Office visit Kb Perry MD 10/01/2013 Office visit Kb Perry MD 09/10/2013 Office visit Kasi Isaiah DO 07/08/2013 Office visit Magda Chen SAFETY AND HEALTH MANAGER 02/18/2013 Office visit Kasi Isaiah DO 10/24/2012 [...]
--- NOTE | 2019-08-23 11:15 | Progress Note-Pre Operative ---
Pre-Operative Progress Note H&P Reviewed The H&P was reviewed, patient examined and no changes noted. Date Seen by Provider: Aug 23, 2019 Time Seen by Provider: 11:00 Date H&P Reviewed: Aug 23, 2019 Time H&P Reviewed: 11:00 Pre-Operative Diagnosis: Right ODELL, Nasopharyngeal mass JI CHASE MD Aug 23, 2019 11:15
--- OUTSIDE RECORDS SUMMARY | 2019-08-23 11:15 | XMS REPORT ---
Author Author Lindsey Colon Organization [facility] Address [address] [place], [place] [address] Care Team Providers Care Team Sports Sales Associate Name Role Phone Kasi Colon PCP Kasi [...] tablets,dose pack 07/13/2010 09/23/2010 take as directed wqdchrdy-xmrwdnwsq-RM 3.5-10,000-10 mg-unit-mg/mL opht halmic drops,suspension 07/13/2010 09/23/2010 [...] 1.2 million units [facility]# 6079 3-600-10 Reviewed 11/30/2015 12:00 AM COMPLETE [...] Reviewed 08/28/2018 12:00 AM ASSAY OF ESTRADIOL Returned 08/28/2018 12:00 AM ASSAY OF GONADOTROPIN (LH) Returned 08/28/2018 12:00 AM ASSAY OF GONADOTROPIN (FSH) Returned 08/28/2018 12:00 AM ASSAY THYROID STIM HORMONE [...] Bicillin CR 1.2 [facility]#[id number] Clini c Reviewed 02/12/2015 12:00 AM COMPLETE [...] Interpretation: COMMENT 08/28/2018 9:40 AM TSH 0.75 History Of Immunizations Not available. History of [...] cy Group Number Start Date BCBS Bcbs [facility] [id number] N/ A [employer] Financial Assistance [facility] [facility] ancial [employer] 50 percent clinics June Early Detection Works Early Detection Works [id number] [phone] Friday, August 17, 2012 BCBS Bcbs [facility] [id number] May 28, 2014 History of Encounters Visit [...] visit JI WEINBERG 08/16/2016 Office visit Kasi Siaiah DO 07/04/2016 Office visit Kasi Isaiah DO 06/15/2016 Office visit Kasi Isaiah DO 05/02/2016 Office visit Kasi Isaiah DO 02/24/2016 Office visit Kasi Isaiah DO 11/30/2015 Office visit Kasi Isaiah DO 11/24/2015 Office visit Ji Victor MD 05/13/2015 Office visit Magda Chen INSPECTOR REPAIRER SANDSTONE 04/13/2015 Office visit Magda Chen INSPECTOR REPAIRER SANDSTONE 03/23/2015 Office visit Ji Victor MD 03/13/2015 [...] Isaiah DO 07/08/2013 Office visit Magda Chen INSPECTOR REPAIRER SANDSTONE 02/18/2013 Office visit Kasi Isaiah DO 10/24/2012 Office visit Kasi Isaiah DO 10/15/2012 Office visit Kasi Isaiah DO 06/21/2012 Office visit Kasi Isaiah DO 04/20/2012 Office visit Kasi Isaiah DO 01/11/2012 Office visit Kasi Isaiah DO 11/29/2011 Office visit Kasi Isaiah DO 09/30/2011 Office visit Kasi Isaiah DO 07/04/2011 Office visit Kasi Colon DO 05/24/2011 Office visit Kasi Cooln DO 03/18/2011 Voided Kasi Isaiah DO 01/14/2011 Office visit Meenakshi WEINBERG 11/02/2010 Office visit Kasi Colon DO 09/23/2010 [...]
--- OUTSIDE RECORDS SUMMARY | 2019-08-23 11:16 | XMS REPORT ---
Author Author Lindsey Colon Organization [facility] Address [address] [place], [place] [address] Care Team Providers Care Weekend Caregiver Name Role Phone Kasi Colon PCP Kasi Colon PreferredProvider Allergies and Adverse Reactions Name Reaction Notes NO KNOWN DRUG ALLERGIES Plan of Treatment Planned Activity Comments Planned Date Planned Time Plan/Goal Basic metabolic profile 05/13/2015 12:00 AM Estradiol measurement 08/28/2018 12:00 AM LH 08/28/2018 12:00 AM FSH 08/28/2018 12:[address] w/o contrast 08/28/2018 12:00 AM Medications Active Name Start Date Estimated Completion Date SIG Co mments Tri-Linyah 0.18/0.215/0.25 mg-35 mcg (28) oral tablet 09/09/2014 TAKE 1 TABLET BY MOUTH ONCE A DAY Lialda 1.2 gram oral tablet,delayed release (DR/EC) 09/07/2015 TAKE 4 TABS BY MOUTH DAILY WITH BREAKFAST. SWALLOW WHOLE; DO NOT BREAK, CHEW OR CRUSH. ADMINISTER WITH A MEAL. Lialda 1.2 gram oral tablet,delayed release (DR/EC) 01/18/2016 TAKE 4 TABS BY MOUTH DAILY WITH BREAKFAST. SWALLOW WHOLE; DO NOT BREAK, CHEW OR CRUSH. ADMINISTER WITH A MEAL. Humira Pen 40 mg/0.8 mL subcutaneous pen [...] needed paroxetine HCl 30 mg oral tablet 08/28/2018 08/23/2019 take 1 tablet (30 mg) by oral [...] 1 TABLET BY MOUTH ONCE A DAY Tri-Linyah 0.18/0.215/0.25 mg-35 mcg (28) oral tablet 09/10/2013 09/09/2014 TAKE 1 TABLET BY MOUTH ONCE A [...] once daily before breakfast for 30 days pantoprazole 40 mg oral tablet,delayed release (DR/EC) 07/24/2017 07/19/2018 TAKE 1 TABLET BY MOUTH ONCE DAILY sulfamethoxazole-trimethoprim 800-160 mg oral tablet 12/25/2017 01/01/2018 [...] tablets,dose pack 07/13/2010 09/23/2010 take as directed uxaxtuzb-amgtlmjtp-XG 3.5-10,000-10 mg-unit-mg/mL opht halmic drops,suspension 07/13/2010 09/23/2010 [...] 12:00 AM Bicillin CR, 1.2 million units [facility]# 6079 3-600-10 Reviewed 11/30/2015 12:00 AM COMPLETE [...] 50mg Injection Reviewed 08/28/2018 12:00 AM ASSAY THYROID STIM [...] Reviewed 01/14/2011 12:00 AM Bicillin CR 1.2 [facility]#[id number] Clini c Reviewed 02/12/2015 12:00 AM COMPLETE [...] Quirino cy Group Number Start Date BCBS [facility] [id number] N/ A [employer] Financial Assistance [facility] 50 percent [facility] June Early Detection Works Early Detection Works [phone] Friday, August 17, 2012 BS [facility] [id number] We May 28, 2014 History of Encounters Visit Date Visit Type Provider 08/28/2018 Office visit Kasi Isaiah DO 07/11/2018 [...] 03/23/2015 Office visit Ji Victor MD 03/13/2015 [facility] Ji Victor MD 03/02/2015 Office visit Ji Victor MD 02/12/2015 Office visit Kasi Colon DO 09/09/2014 Office visit Kasi Colon DO 02/24/2014 Office visit Ji Victor MD 12/30/2013 Office visit Ji Victor MD 11/25/2013 Office visit Ji Victor MD 11/14/2013 [facility] Ji Victor MD 11/04/2013 Office visit [...]
--- OUTSIDE RECORDS SUMMARY | 2019-08-23 11:16 | XMS REPORT ---
Author Author Lindsey Colon Organization [facility] Address [address] [place], [place] [address] Care Team Providers Care Casino Attendant Name Role Phone Kasi Colon PCP [...] tablets,dose pack 07/13/2010 09/23/2010 take as directed nsfghsam-xgidneaxn-VG 3.5-10,000-10 mg-unit-mg/mL opht halmic drops,suspension 07/13/2010 09/23/2010 [...] 12:00 AM Bicillin CR, 1.2 million units [facility]# 6079 3-600-10 Reviewed 11/30/2015 12:00 [...] Reviewed 01/14/2011 12:00 AM Bicillin CR 1.2 [facility]#[id number] Clini c Reviewed 02/12/2015 12:00 AM COMPLETE [...] Quirino cy Group Number Start Date BCBS [facility] [id number] N/ A [employer] Financial Assistance [facility] 50 percent [facility] June Early Detection Works Early Detection Works [id number] [phone] Friday, August 17, 2012 BS [facility] [id number] We May 28, 2014 History of Encounters [...] 03/23/2015 Office visit Ji Victor MD 03/13/2015 [facility] Ji Victor MD 03/02/2015 Office visit Ji Victor MD 02/12/2015 Office visit Kasi Colon DO 09/09/2014 Office visit Kasi Colon DO 02/24/2014 Office visit Ji Victor MD 12/30/2013 Office visit Ji Victor MD 11/25/2013 Office visit Ji Victor MD 11/14/2013 [facility] Ji Victor MD 11/04/2013 Office visit [...] Meenakshi Singh PA 11/25/2009 Office visit Kasi Leognte DO 10/27/2009 Office visit Kasi Colon DO [...]
--- OUTSIDE RECORDS SUMMARY | 2019-08-23 11:17 | XMS REPORT ---
Author Author Lindsey Colon Organization [facility] Address [address] [place], [place] [address] Care Team Providers Care Role Player Name Role Phone Kasi Colon PCP Kasi [...] tablets,dose pack 07/13/2010 09/23/2010 take as directed sishzyzp-femkqcnny-SY 3.5-10,000-10 mg-unit-mg/mL opht halmic drops,suspension 07/13/2010 09/23/2010 [...] 12:00 AM Bicillin CR, 1.2 million units [facility]# 6079 3-600-10 Reviewed 11/30/2015 12:00 [...] Reviewed 01/14/2011 12:00 AM Bicillin CR 1.2 [facility]#[id number] Clini c Reviewed 02/12/2015 12:00 AM COMPLETE [...] Quirino cy Group Number Start Date BCBS [facility] [id number] N/ A [employer] Financial Assistance [facility] 50 percent [facility] June Early Detection Works Early Detection Works [phone] Friday, August 17, 2012 BS [facility] [id number] We May 28, 2014 History of Encounters [...] 03/23/2015 Office visit Ji Victor MD 03/13/2015 [facility] Ji Victor MD 03/02/2015 Office visit Ji Victor MD 02/12/2015 Office visit Kasi Colon DO 09/09/2014 Office visit Kasi Colon DO 02/24/2014 Office visit Ji Victor MD 12/30/2013 Office visit Ji Victor MD 11/25/2013 Office visit Ji Victor MD 11/14/2013 [facility] Ji Vicotr MD 11/04/2013 Office visit Ji Victor MD 11/04/2013 Office visit Kasi Colon DO 10/21/2013 Office visit Kb Perry MD 10/01/2013 Office visit Kb Perry MD 09/10/2013 Office visit Kasi Isaiah DO 07/08/2013 Office visit Magda Chen CONNER 02/18/2013 Office visit Kasi Siaiah DO 10/24/2012 Office visit Kasi Isaiah DO [...]
--- OUTSIDE RECORDS SUMMARY | 2019-08-23 11:18 | XMS REPORT ---
Author Author Lindsey Colon [facility] Address [address] [place], [place] [address] Care Team Providers Care Discharge Door Operator Name Role Phone Kasi Colon PCP Kasi [...] TAKE 1 TABLET BY MOUTH ONCE DAILY Zoloft 100 mg oral tablet 05/11/2018 05/06/2019 take 1 .5 tablets by oral route daily for 90 days gabapentin 300 mg oral capsule 05/11/2018 t blanca 1 capsule (300 mg) by oral route at bedtime naproxen 500 mg oral tablet 06/07/2018 take 1 tablet by oral route every 12 hours as needed with food Vyvanse 50 mg oral capsule 06/14/2018 07/14/2018 take 1 capsule (50 mg) by oral route once daily in the morning for 30 days Apri 0.15-0.03 mg oral tablet 06/19/2018 06/18/2019 ta ke 1 tablet by oral route once daily for 28 days Sudogest 30 mg oral tablet 06/28/2018 take 2 tablets (60 mg) by oral route every 6 hours as needed benzonatate 200 mg oral capsule 06/29/2018 take 1 capsule (200 mg) by oral route 3 times per day Lomotil 2.5-0.025 mg oral tablet 07/11/2018 take 2 tablets (5 mg) by oral route 3 times per day prednisone 20 mg oral tablet 07/11/2018 sirena e 2 tablets (40 mg) by oral route once daily x 3 days then 1 tablet daily x 2 days Name Start Date Expiration Date SIG [...] route every 12 hours for 7 days Zofran 4 mg oral tablet 07/10/2018 07/11/2018 take 1-2 tablets by oral route every 8 hours for 1 day Discontinued Name Start Date Discontinued Date [...] tablets,dose pack 07/13/2010 09/23/2010 take as directed lfvfqrug-oblffvlnr-HY 3.5-10,000-10 mg-unit-mg/mL opht halmic drops,suspension 07/13/2010 09/23/2010 [...] 05/11/2018 TAKE 1 TABLET BY MOUTH DAILY guaifenesin 600 mg oral tablet extended release 12hr 06/19/2018 07/11/2018 take 1 tablet (600 mg) by oral route every 12 hours amoxicillin-pot clavulanate 500-125 mg oral tablet 06/29/2018 07/11/2018 take 1 tablet by oral route every 12 hours Problem List Description Status Onset Anxiety disorder [...] HC BMI BSA BMI Percentile O2 Sat(%) 07/11/2018 9:58:00 AM 128 mmHg 88 mmHg [...] F 209 lbs 64 in 35.8744 kg/m 2.069 m 98 % 11/28/2016 11:12:00 AM 108 mmHg 74 mmHg 78 bpm 16 rpm 98.2 F 212 lbs 64 in 36.39 kg/m2 2.08 m2 98 % 11/01/2016 11:17:00 AM 132 mmHg 84 mmHg 94 bpm 18 rpm 97.4 F 210 lbs 64 in 36.046 kg/m 2.074 m 98 % 08/16/2016 2:04:00 PM 130 mmHg 66 mmHg 96 bpm 20 rpm 98.3 F 212 lbs 64 in 36.39 kg/m2 2.08 m2 98 % 07/04/2016 9:37:00 AM 130 mmHg 76 mmHg 76 bpm 18 rpm 98.2 F 212 lbs 64 in 36.3893 kg/m 2.0838 m 97 % 06/15/2016 9:44:00 AM 128 mmHg 72 mmHg 80 bpm 16 rpm 98 F 208 lbs 64 in 35.70 kg/m2 2.06 m2 98 % 05/02/2016 2:41:00 PM 120 mmHg 72 mmHg 88 bpm 16 rpm 98 F 208 lbs 64 in 35.7028 kg/m 2.0641 m 99 % 02/24/2016 10:00:00 AM 124 mmHg 72 mmHg 81 bpm 17 rpm 97 F 202 lbs 66 in 32.60 kg/m2 2.07 m2 97 % 11/30/2015 1:30:00 PM 130 mmHg [...] 12:00 AM Bicillin CR, 1.2 million units [facility]# 6079 3-600-10 Reviewed 11/30/2015 12:00 AM COMPLETE [...] 07/11/2018 12:00 AM Phenergan 50mg Injection Reviewed 09/10/2013 12:00 AM CYTOPATH C/V THIN [...] Reviewed 01/14/2011 12:00 AM Bicillin CR 1.2 [facility]#[id number] Clini c Reviewed 02/12/2015 12:00 AM COMPLETE [...] Ag minus Nil Value 0.00 Interpretation: COMMENT History Of Immunizations Not available. History of [...] 10:01AM Crohn's colitis Jul 11 2018 10:01AM Payers Insurance Name Company Name Plan Name Plan Number Policy Number Quirino cy Group Number Start Date BCBS Bcbs [facility] [id number] N/ A [employer] Financial Assistance [employer] [facility] 50 percent [facility] June Early Detection Works Early Detection Works [id number] Friday, August 17, 2012 BCBS Bcbs [facility] [id number] May 28, 2014 History of Encounters Visit Date Visit Type Provider 07/11/2018 Office visit Kasi Colon DO 06/19/2018 [...] Kasi Colon DO 07/04/2016 Office visit Kasi Colon DO 06/15/2016 Office visit Kasi Isaiah DO 05/02/2016 Office visit Kasi Isaiah DO 02/24/2016 Office visit Kasi Isaiah DO 11/30/2015 Office visit Kasi Isaiah DO 11/24/2015 Office visit Ji Victor MD 05/13/2015 Office visit Magda Chen ASSOCIATE PROFESSOR OF MUSICOLOGY 04/13/2015 Office visit Magda Chen ASSOCIATE PROFESSOR OF MUSICOLOGY 03/23/2015 Office visit Ji Victor MD 03/13/2015 Hospital Ji Victor MD 03/02/2015 Office visit Ji Victor MD 02/12/2015 Office visit Kasi Isaiah DO 09/09/2014 Office visit Kasi Isaiah DO 02/24/2014 Office visit Ji Victor MD 12/30/2013 Office visit Ji Victor MD 11/25/2013 Office visit Ji Victor MD 11/14/2013 [facility] Ji Victor MD 11/04/2013 Office visit Ji Victor MD 11/04/2013 Office visit Kasi Isaiah DO 10/21/2013 Office visit Kb Perry MD 10/01/2013 Office visit Kb Perry MD 09/10/2013 Office visit Kasi Isaiah DO 07/08/2013 Office visit Magda Chen ASSOCIATE PROFESSOR OF MUSICOLOGY 02/18/2013 Office visit Kasi Isaiah DO 10/24/2012 [...]
--- OUTSIDE RECORDS SUMMARY | 2019-08-23 11:18 | XMS REPORT ---
Author Author Lindsey Colon Organization [facility] Address [address] [place], [place] [address] Care Team Providers Care Retail Bakery Manager Name Role Phone Kasi Colon PCP Kasi [...] CHEW OR CRUSH. ADMINISTER WITH A MEAL. Zoloft 100 mg oral tablet 05/11/2018 05/06/2019 take 1 .5 tablets by oral route daily for 90 days gabapentin 300 mg oral capsule 05/11/2018 t blanca 1 capsule (300 mg) by oral route at bedtime naproxen 500 mg oral tablet 06/07/2018 take 1 tablet by oral route every 12 hours as needed with food Apri 0.15-0.03 mg oral tablet 06/19/2018 06/18/2019 [...] then 1 tablet daily x 2 days pantoprazole 40 mg oral tablet,delayed release (DR/EC) 07/21/2018 TAKE 1 TABLET BY MOUTH ONCE A DAY Sudogest 30 mg oral tablet 08/06/2018 take 2 tablets (60 mg) by oral route every 6 hours as needed Ciloxan 0.3 % ophthalmic (eye) drops 08/06/2018 08/08/2018 instill 2 drops into affected eye(s) by ophthalmic route 4 times a day for 5 days Name Start Date Expiration Date SIG [...] tablets,dose pack 07/13/2010 09/23/2010 take as directed arfnonvp-poowiavua-LO 3.5-10,000-10 mg-unit-mg/mL opht halmic drops,suspension 07/13/2010 09/23/2010 [...] 12:00 AM Bicillin CR, 1.2 million units [facility]# 6079 3-600-10 Reviewed 11/30/2015 12:00 [...] Reviewed 01/14/2011 12:00 AM Bicillin CR 1.2 [facility]#[id number] Clini c Reviewed 02/12/2015 12:00 AM COMPLETE [...] cy Group Number Start Date BCBS [facility] [id number] N/ A [employer] Financial Assistance [facility] Gio 50 percent clinics June Early Detection Works Early Detection [employer] [id number] Friday, August 17, 2012 BCBS [facility] [id number] May 28, 2014 History of Encounters Visit [...] Victor MD 05/13/2015 Office visit Magda Chen DECORATING INSTRUCTOR 04/13/2015 Office visit Magda Chen DECORATING INSTRUCTOR 03/23/2015 Office visit Ji Victor MD 03/13/2015 [facility] Ji Victor MD 03/02/2015 Office visit Ji Victor MD 02/12/2015 Office visit Kasi Isaiah DO 09/09/2014 Office visit Kasi Isaiah DO 02/24/2014 Office visit iJ Victor MD 12/30/2013 Office visit Ji Victor MD 11/25/2013 Office visit Ji Victor MD 11/14/2013 [facility] Ji Victor MD 11/04/2013 Office visit Ji Victor MD 11/04/2013 Office visit Kasi Isaiah DO 10/21/2013 Office visit Kb Perry MD 10/01/2013 Office visit Kb Perry MD 09/10/2013 Office visit Kasi Isaiah DO 07/08/2013 Office visit Magda Chen DECORATING INSTRUCTOR 02/18/2013 Office visit Kasi Isaiah DO 10/24/2012 [...] Kasi Isaiah DO 09/23/2010 Office visit Kasi Colon DO [...]
--- OUTSIDE RECORDS SUMMARY | 2019-08-23 11:19 | XMS REPORT ---
Author Author Lindsey Colon [facility] Address [address] [place], [place] [address] Care Team Providers Care Manager Ent Name Role Phone Kasi Colon PCP Kasi [...] daily in the morning for 30 days guaifenesin 600 mg oral tablet extended release 12hr 06/19/2018 take 1 tablet (600 mg) by oral route every 12 hours Apri 0.15-0.03 mg oral tablet 06/19/2018 06/18/2019 ta ke 1 tablet by oral route once daily for 28 days Sudogest 30 mg oral tablet 06/28/2018 take 2 tablets (60 mg) by oral route every 6 hours as needed benzonatate 200 mg oral capsule 06/29/2018 take 1 capsule (200 mg) by oral route 3 times per day amoxicillin-pot clavulanate 500-125 mg oral tablet 06/29/2018 take 1 tablet by oral route every 12 hours Name Start Date Expiration Date SIG Comments [...] tablets,dose pack 07/13/2010 09/23/2010 take as directed ngvjkyob-cjhdpoedj-MQ 3.5-10,000-10 mg-unit-mg/mL opht halmic drops,suspension 07/13/2010 09/23/2010 [...] 05/11/2018 TAKE 1 TABLET BY MOUTH DAILY Problem List Description Status Onset Anxiety disorder Active Depressive Disorder Active Colitis Active Abdominal pain Active Colonic Polyps, Personal History of Active 2008 Ulcerative colitis Active 09/09/2014 Nicotine Addiction Active 12/06/2015 Medication management Active 11/03/2016 Decreased libido without sexual dysfunction Active 11/03/2016 Mood swings Active 11/03/2016 Morbid obesity due to excess calories Active Environmental and seasonal allergies Active 06/2016 NATASHA (generalized anxiety disorder) Active 11/29 Moderate episode of recurrent major depressive disorder Acti ve 09/16/2017 Attention deficit disorder (ADD) without hyperactivity Activ e 09/16/2017 Vital Signs Date Time BP-Sys(mm[Hg] BP-Yesenia(mm[Hg]) HR(bpm) RR(rpm) Temp WT HT HC BMI BSA BMI Percentile O2 Sat(%) 06/19/2018 8:54:00 AM 126 mmHg 62 mmHg [...] F 201.5 lbs 64 in 34.59 kg/m2 2.03 m2 12/11/2017 10:04:00 AM 134 mmHg 74 mmHg 78 bpm 18 rpm 98.2 F 201 lbs 64 in 34.5012 kg/m 2.029 m 98 % 09/12/2017 4:19:00 PM 104 mmHg [...] in 35.70 kg/m2 2.06 m2 98 % 02/01/2017 6:28:00 AM 118 mmHg [...] 12:00 AM Bicillin CR, 1.2 million units [facility]# 6079 3-600-10 Reviewed 11/30/2015 12:00 AM [...] 03/11/2018 12:00 AM Decadron 4mg Injection Reviewed 09/10/2013 12:00 AM CYTOPATH C/V [...] Reviewed 01/14/2011 12:00 AM Bicillin CR 1.2 [facility]#[id number] Clini c Reviewed 02/12/2015 12:00 AM COMPLETE [...] 8:09AM Exercise Counseling May 24 2011 8:09AM Routine gynecological examination Jul 04 2011 8:42AM [...] 8:56AM Neck Pain Jun 19 2018 8:56AM Payers Insurance Name Company Name Plan Name Plan Number Policy Number Quirino cy Group Number Start Date BCBS [employer] [place] [id number] N/ A [employer] Financial Assistance [employer] [facility] June Early Detection Works Early Detection Works [id number] Friday, August 17, 2012 BCBS [employer] [id number] We May 28, 2014 History of Encounters Visit Date Visit Type Provider 06/19/2018 Office visit Kasi Isaiah DO 05/11/2018 [...] 03/23/2015 Office visit Ji Victor MD 03/13/2015 [facility] Ji Victor MD 03/02/2015 Office visit Ji Victor MD 02/12/2015 Office visit Kasi Colon DO 09/09/2014 Office visit Kasi Colon DO 02/24/2014 Office visit Ji Victor MD 12/30/2013 Office visit Ji Victor MD 11/25/2013 Office visit Ji Victor MD 11/14/2013 [facility] Ji Victor MD 11/04/2013 Office visit [...] Meenakshi Singh PA 07/21/2009 Office visit Jerilyn Coilndres PA 04/22/2009 Office visit Meenakshi Singh PA 04/07/2009 Office visit Jerilyn Colindres PA 03/03/2009 Office visit Kasi Leongte DO 02/23/2009 Office visit Jitendra Kerns MD 02/18/2009 Surgery Jitendra Kerns MD 02/16/2009 Surgery Jitendra Kerns MD 02/06/2009 Surgery Jitendra Kerns MD 02/05/2009 Office visit Jitendra Kerns MD
--- OUTSIDE RECORDS SUMMARY | 2019-08-23 11:20 | XMS REPORT ---
Author Author Lindsey Colon [facility] Address [address] [place], [place] [phone] Care Team Providers Care Sanding Line Operator Name Role Phone Kasi Colon PCP [...] tablets,dose pack 07/13/2010 09/23/2010 take as directed zldmpozm-axrciejjv-DC 3.5-10,000-10 mg-unit-mg/mL opht halmic drops,suspension 07/13/2010 09/23/2010 [...] Active Colonic Polyps, Personal History of Active 2009 Ulcerative colitis Active 09/09/2014 Nicotine Addiction Active [...] e 09/16/2017 Vital Signs Date Time BP-Sys(mm[Hg] BP-Yesenai(mm[Hg]) HR(bpm) RR(rpm) Temp WT HT HC BMI [...] 12:00 AM Bicillin CR, 1.2 million units [facility]# 6079 3-600-10 Reviewed 11/30/2015 12:00 AM [...] Reviewed 01/14/2011 12:00 AM Bicillin CR 1.2 [facility]#[id number] Clini c Reviewed 02/12/2015 12:00 AM COMPLETE [...] Quirino cy Group Number Start Date BCBS [facility] [id number] N/ A [employer] Financial Assistance [employer] Fin ancial Gio 50 percent clinics June Early Detection Works Early Detection Works [id number] Friday, August 17, 2012 [facility] [id number] We dnMay 28, 2014 History of Encounters [...] visit JI WEINBERG 11/28/2016 Office visit JI WIENBERG 11/01/2016 Office visit JI WEINBERG 08/16/2016 Office visit Kasi Isaiah DO 07/04/2016 Office visit Kasi Isaiah DO 06/15/2016 Office visit Kasi Isaiah DO 05/02/2016 Office visit Kasi Isaiah DO 02/24/2016 Office visit Kasi Isaiah DO 11/30/2015 Office visit Kasi Isaiah DO 11/24/2015 Office visit Ji Victor MD 05/13/2015 Office visit Magda Chen BLINTZE ROLLER 04/13/2015 Office visit Magda Chen APRN 03/23/2015 Office visit Ji Victor MD 03/13/2015 Hospital Ji Victor MD 03/02/2015 Office visit Ji Victor MD 02/12/2015 Office visit Kasi Isaiah DO 09/09/2014 Office visit Kasi Colon DO [...] Colon DO 07/08/2013 Office visit Magda Chen APRN 02/18/2013 Office visit Kasi Colon DO 10/24/2012 Office visit Kasi Isaiah DO [...] visit Meenakshi WEINBERG 11/25/2009 Office visit Kasi Leongte DO 10/27/2009 Office visit Kasi Isaiah DO [...]
--- OUTSIDE RECORDS SUMMARY | 2019-08-23 11:21 | XMS REPORT ---
Author Author Lindsey Colon [facility] Address [address] [place], [place] [address] Care Team Providers Care Utility Worker Roller Shop Name Role Phone Kasi Colon PCP Kasi [...] TAKE 1 TABLET BY MOUTH ONCE DAILY Sudogest 30 mg oral tablet 03/09/2018 take 2 tablets (60 mg) by oral route every 6 hours as needed Zoloft 100 mg oral tablet 05/11/2018 05/06/2019 [...] oral route once daily for 28 days Name Start Date Expiration Date SIG [...] tablets,dose pack 07/13/2010 09/23/2010 take as directed vantheiy-vicmjnuow-LW 3.5-10,000-10 mg-unit-mg/mL opht halmic drops,suspension 07/13/2010 09/23/2010 [...] 12:00 AM Bicillin CR, 1.2 million units [facility]# 6079 3-600-10 Reviewed 11/30/2015 12:00 AM [...] Reviewed 01/14/2011 12:00 AM Bicillin CR 1.2 [facility]#[id number] Clini c Reviewed 02/12/2015 12:00 AM COMPLETE [...] Quirino cy Group Number Start Date BCBS [facility] [id number] N/ A [employer] Financial Assistance [employer] Fin ancial Gio 50 percent clinics June Early Detection Works Early Detection Works [id number] [phone] Friday, August 17, 2012 [facility] [id number] We dnMay 28, 2014 History of Encounters [...] Victor MD 05/13/2015 Office visit Magda Chen INCINERATOR PLANT LABORER 04/13/2015 Office visit Magda Chen APRN 03/23/2015 [...]
--- OUTSIDE RECORDS SUMMARY | 2019-08-23 11:21 | XMS REPORT ---
Author Author Lindsey Colon [facility] o[facility] Address [address] [place], [place] [address] Care Team Providers Care Knot Cutter Name Role Phone Kasi Colon PCP Kasi [...] tablets,dose pack 07/13/2010 09/23/2010 take as directed tbhfnmcr-qgbyvxbhe-DM 3.5-10,000-10 mg-unit-mg/mL opht halmic drops,suspension 07/13/2010 09/23/2010 [...] 25 mg oral tablet 02/02/2012 10/15/2012 t blacna 1 tablet (25 mg) by oral route [...] 12:00 AM Bicillin CR, 1.2 million units [facility]# 6079 3-600-10 Reviewed 11/30/2015 12:00 [...] Reviewed 01/14/2011 12:00 AM Bicillin CR 1.2 [facility]#[id number] Clini c Reviewed 02/12/2015 12:00 AM COMPLETE [...] Burning tongue syndrome May 11 2018 8:47AM Payers Insurance Name Company Name Plan Name Plan Number Policy Number Quirino cy Group Number Start Date BCBS [facility] [id number] N/ A [employer] Financial Assistance [employer] Fin ancial Gio 50 percent clinics June Early Detection Works Early Detection Works [id number] [phone] Friday, August 17, 2012 [facility] [id number] We May 28, 2014 History of Encounters [...] visit Kb Perry MD 09/10/2013 Office visit aKsi Colon DO 07/08/2013 Office visit Magda Chen ECOSYSTEM ECOLOGY PROFESSOR 02/18/2013 Office visit Kasi Isaiah DO 10/24/2012 [...] Meenakshi Singh PA 11/02/2010 Office visit Kasi Leongte DO 09/23/2010 [...]
--- OUTSIDE RECORDS SUMMARY | 2019-08-23 11:22 | XMS REPORT ---
Author Author Lindsey Colon [facility] o[facility] Address [address] [place], [place] [address] Care Team Providers Care Dean Of Chapel Name Role Phone Kasi Colon PCP Kasi [...] oral route every 6 hours as needed Apri 0.15-0.03 mg oral tablet 04/09/2018 04/08/2019 ta ke 1 tablet by oral route once daily for 28 days Zoloft 100 mg oral tablet 05/11/2018 05/06/2019 [...] mg) by oral route every 12 hours Name [...] tablets,dose pack 07/13/2010 09/23/2010 take as directed bsmkwlda-vuobsihxi-IS 3.5-10,000-10 mg-unit-mg/mL opht halmic drops,suspension 07/13/2010 09/23/2010 [...] 12:00 AM Bicillin CR, 1.2 million units [facility]# 6079 3-600-10 Reviewed 11/30/2015 12:00 AM COMPLETE [...] Reviewed 01/14/2011 12:00 AM Bicillin CR 1.2 [facility]#[id number] Clini c Reviewed 02/12/2015 12:00 AM COMPLETE [...] Quirino cy Group Number Start Date BCBS [facility] [id number] N/ A [employer] Financial Assistance [employer] Fin ancial Gio 50 percent clinics June Early Detection Works Early Detection Works [phone] Friday, August 17, 2012 [facility] [id number] We May 28, 2014 History of Encounters [...] 03/23/2015 Office visit Ji Victor MD 03/13/2015 [facility] Ji Victor MD 03/02/2015 Office visit Ji [...] Colon DO 07/08/2013 Office visit Magda Chen HAT BINDER 02/18/2013 Office visit Kasi Isaiah DO 10/24/2012 [...]
--- OUTSIDE RECORDS SUMMARY | 2019-08-23 11:23 | XMS REPORT ---
Author Author Lindsey Colon Organization [facility] Address [address] [place], [place] [address] Care Team Providers Care Wildlife Rehabilitator Name Role Phone Kasi Colon PCP JI ROSA PreferredProvider Allergies and Adverse Reactions Name Reaction [...] by oral route daily for 90 days Vyvanse 50 mg oral capsule 05/11/2018 06/10/2018 take 1 capsule (50 mg) by oral route once daily in the morning for 30 days gabapentin 300 mg oral capsule 05/11/2018 t blanca 1 capsule (300 mg) by oral route at bedtime nystatin 100,000 unit/mL oral suspension 05/11/2018 018 [...] tablets,dose pack 07/13/2010 09/23/2010 take as directed gieicckt-omamfxpep-JH 3.5-10,000-10 mg-unit-mg/mL opht halmic drops,suspension 07/13/2010 09/23/2010 [...] prednisone 10 mg oral tablet 02/13/2014 02/24/2014 sirean e 4 tablets by oral route daily [...] HC BMI BSA BMI Percentile O2 Sat(%) 05/11/2018 8:46:00 AM 130 mmHg 66 mmHg [...] 12:00 AM Bicillin CR, 1.2 million units [facility]# 6079 3-600-10 Reviewed 11/30/2015 12:00 AM COMPLETE [...] Reviewed 01/14/2011 12:00 AM Bicillin CR 1.2 [facility]#[id number] Clini c Reviewed 02/12/2015 12:00 AM COMPLETE [...] serous otitis media, recurrence not specified Ja 2016 9:46AM Eustachian tube dysfunction, right Jul [...] Group Number Start Date BCBS [employer] [place] [id number] N/ A [employer] Financial Assistance [employer] [facility] Gio 50 percent [facility] June Early Detection Works Early Detection Works [phone] Friday, August 17, 2012 BCBS [employer] [place] [id number] May 28, 2014 History of Encounters Visit Date Visit Type Provider 05/11/2018 Office visit Kasi Colon DO 04/09/2018 Office visit Kasi Colon DO 03/11/2018 Office visit Ruth Cameron PRE SALES ARCHITECT 12/25/2017 Office visit Kasi Colon DO 12/11/2017 [...] Victor MD 05/13/2015 Office visit Magda Chen PRE SALES ARCHITECT 04/13/2015 Office visit Magda Chen PRE SALES ARCHITECT 03/23/2015 Office visit Ji Victor MD 03/13/2015 [facility] Ji Victor MD 03/02/2015 Office visit Ji Victor MD 02/12/2015 Office visit Kasi Isaiah DO 09/09/2014 Office visit Kasi Isaiah DO 02/24/2014 Office visit Ji Victor MD 12/30/2013 Office visit Ji Victor MD 11/25/2013 Office visit Ji Victor MD 11/14/2013 [facility] Ji Victor MD 11/04/2013 Office visit Ji Victor MD 11/04/2013 Office visit Kasi Isaiah DO 10/21/2013 Office visit Kb Perry MD 10/01/2013 Office visit Kb Perry MD 09/10/2013 Office visit Kasi Isaiah DO 07/08/2013 Office visit Magda Chen PRE SALES ARCHITECT 02/18/2013 Office visit Kasi Isaiah DO 10/24/2012 [...]
--- OUTSIDE RECORDS SUMMARY | 2019-08-23 11:23 | XMS REPORT ---
Author Author Lindsey Colon Organization [facility] Phys[facility] o[facility] Address [address] [place], [place] [address] Care Team Providers Care Community Service Officer Coordinator Name Role Phone Kasi Colon PCP JI [...] every 12 hours as needed with food Name Start Date Expiration Date SIG Comments [...] tablets,dose pack 07/13/2010 09/23/2010 take as directed krnmxsec-edpyexvhl-DQ 3.5-10,000-10 mg-unit-mg/mL opht halmic drops,suspension 07/13/2010 09/23/2010 [...] prednisone 10 mg oral tablet 02/24/2014 09/09/2014 Isrena e 4 tablets (40 mg) once a [...] 12:00 AM Bicillin CR, 1.2 million units [facility]# 6079 3-600-10 Reviewed 11/30/2015 12:00 AM COMPLETE [...] Reviewed 01/14/2011 12:00 AM Bicillin CR 1.2 [facility]NOTE 3[facility]#[id number] Clini c Reviewed 02/12/2015 12:00 AM COMPLETE [...] Quirino cy Group Number Start Date BCBS [facility] [id number] N/ A [employer] Financial Assistance [employer] Fin ancial Gio 50 percent clinics June Early Detection Works Early Detection Works [id number] [phone] Friday, August 17, 2012 [facility] [id number] We May 28, 2014 History of Encounters Visit Date Visit Type Provider 05/11/2018 Office visit Kasi Colon DO 04/09/2018 Office visit Kasi Colon DO 03/11/2018 Office visit Ruth Cameron ACCOUNTS PAYABLE MANAGER 12/25/2017 Office visit Kasi Colon DO 12/11/2017 [...] Victor MD 05/13/2015 Office visit Magda Chen ACCOUNTS PAYABLE MANAGER 04/13/2015 Office visit Magda Chen ACCOUNTS PAYABLE MANAGER 03/23/2015 Office visit Ji Victor MD [...] Isaiah DO 07/08/2013 Office visit Magda Chen ACCOUNTS PAYABLE MANAGER 02/18/2013 Office visit Kasi Isaiah DO 10/24/2012 Office visit Kasi Isaiah DO 10/15/2012 Office visit Kasi Isaiah DO 06/21/2012 Office visit Kasi Isaiah DO 04/20/2012 Office visit Kasi Isaiah DO 01/11/2012 Office visit Kasi Isaiah DO 11/29/2011 Office visit Kasi Isaiah DO 09/30/2011 Office visit Kasi Isaiah DO 07/04/2011 Office visit Kasi Isaiah DO 05/24/2011 Office visit Kasi Cloon DO 03/18/2011 Voided Kasi Isaiah DO 01/14/2011 [...]
--- OUTSIDE RECORDS SUMMARY | 2019-08-23 11:24 | XMS REPORT ---
Author Author Lindsey Colon Organization [facility] Address [address] [place], [place] [address] Care Team Providers Care Registered Massage Therapist Name Role Phone Kasi Colon PCP JI [...] 4 times per day for 14 days Name Start Date Expiration Date SIG [...] tablets,dose pack 07/13/2010 09/23/2010 take as directed jgebqzjy-sgkzhetgl-VO 3.5-10,000-10 mg-unit-mg/mL opht halmic drops,suspension 07/13/2010 09/23/2010 [...] 12:00 AM Bicillin CR, 1.2 million units [facility]# 6079 3-600-10 Reviewed 11/30/2015 12:00 AM COMPLETE [...] Reviewed 01/14/2011 12:00 AM Bicillin CR 1.2 [facility]#[id number] Clini c Reviewed 02/12/2015 12:00 AM COMPLETE [...] 3:14PM Major depressive disorder, recurrent episode; mild b 20 10 3:14PM Cellulitis and abscess of finger; [...] Quirino cy Group Number Start Date BCBS [facility] [id number] N/ A [employer] Financial Assistance [employer] [facility] ancial Gio 50 percent [facility] June Early Detection Works Early Detection Works [phone] Friday, August 17, 2012 [facility] [id number] May 28, 2014 History of Encounters Visit Date Visit Type Provider 05/11/2018 Office visit Kasi Colon DO 04/09/2018 Office visit Kasi Colon DO 03/11/2018 Office visit Ruth Cameron APRN 12/25/2017 Office visit Kasi Colon DO 12/11/2017 [...] Victor MD 05/13/2015 Office visit Magda Chen MASTER FISHER 04/13/2015 Office visit Magda Chen MASTER FISHER 03/23/2015 Office visit Ji Victor MD 03/13/2015 Hospital Ji Victor MD 03/02/2015 Office visit Ji Victor MD 02/12/2015 Office visit Kasi Isaiah DO 09/09/2014 Office visit Kasi Isaiah DO 02/24/2014 Office visit Ji Victor MD 12/30/2013 Office visit Ji Victor MD 11/25/2013 Office visit Ji Victor MD 11/14/2013 [facility] Ji Victor MD 11/04/2013 Office visit Ji Victor MD 11/04/2013 Office visit Kasi Isaiah DO 10/21/2013 Office visit Kb Perry MD 10/01/2013 Office visit Kb Perry MD 09/10/2013 Office visit Kasi Isaiah DO 07/08/2013 Office visit Magda Chen MASTER FISHER 02/18/2013 Office visit Kasi Isaiah DO 10/24/2012 [...]
--- OUTSIDE RECORDS SUMMARY | 2019-08-23 11:25 | XMS REPORT ---
Author Author Lindsey Colon Organization [facility] Address [address] [place], [place] [address] Care Team Providers Care Sales Support Specialist Name Role Phone Kasi Colon PCP JI [...] tablets,dose pack 07/13/2010 09/23/2010 take as directed dipvrpoe-bbvtzqexo-MJ 3.5-10,000-10 mg-unit-mg/mL opht halmic drops,suspension 07/13/2010 09/23/2010 [...] AM Bicillin CR, 1.2 million units [facility]# 6079 3-600-10 Reviewed 11/30/2015 12:00 AM COMPLETE [...] 01/14/2011 12:00 AM Bicillin CR 1.2 [facility]#[id number] Clini c Reviewed 02/12/2015 12:00 AM COMPLETE [...] Number Start Date BCBS [facility] [id number] N/ A [employer] Financial Assistance [employer] [facility] ancial Gio 50 percent [facility] June Early Detection Works Early Detection Works [phone] Friday, August 17, 2012 [facility] [id number] May 28, 2014 History of Encounters Visit [...] Victor MD 05/13/2015 Office visit Magda Chen PSYCHOLOGY ASSOCIATE 04/13/2015 Office visit Magda Chen PSYCHOLOGY ASSOCIATE 03/23/2015 Office visit Ji Victor MD 03/13/2015 Hospital Ji Victor MD 03/02/2015 Office visit Ji Victor MD 02/12/2015 Office visit Kasi Isaiah DO 09/09/2014 Office visit Kasi Isaiah DO 02/24/2014 Office visit Ji Victor MD 12/30/2013 Office visit Ji Victor MD 11/25/2013 Office visit Ji Victor MD 11/14/2013 [facility] Ji Victor MD 11/04/2013 Office visit Ji Victor MD 11/04/2013 Office visit Kasi Isaiah DO 10/21/2013 Office visit Kb Perry MD 10/01/2013 Office visit Kb Perry MD 09/10/2013 Office visit Kasi Isaiah DO 07/08/2013 Office visit Magda Chen PSYCHOLOGY ASSOCIATE 02/18/2013 Office visit Kasi Isaiah DO [...]
--- OUTSIDE RECORDS SUMMARY | 2019-08-23 11:25 | XMS REPORT ---
Author Author Lindsey Colon Organization [facility] Address [address] [place], [place] [id number] Care Team Providers Care Space Controller Name Role Phone Kasi Colon PCP JI [...] ONCE DAILY Zoloft 100 mg oral tablet 03/09/2018 05/08/2018 take 1 tablet (100 mg) by oral route once daily for 30 days Sudogest 30 mg oral tablet 03/09/2018 take 2 tablets (60 mg) by oral route every 6 hours as needed Zoloft 50 mg oral tablet 03/20/2018 09/16/2018 take 1 tablet (50 mg) by oral route once daily for 30 days Apri 0.15-0.03 mg oral tablet 04/09/2018 04/08/2019 ta ke 1 tablet by oral route once daily for 28 days amoxicillin-pot clavulanate 500-125 mg oral tablet 04/09/2018 04/16/2018 take 1 tablet by oral route every 12 hours for 7 days guaifenesin 600 mg oral tablet extended release 12hr 04/09/2018 take 1 tablet (600 mg) by oral route every 12 hours Vyvanse 50 mg oral capsule 04/13/2018 05/13/2018 take 1 capsule (50 mg) by oral route once daily in the morning for 30 days Name Start Date Expiration Date SIG [...] 2 tablet by oral route once daily Discontinued Name Start Date Discontinued Date SIG [...] tablets,dose pack 07/13/2010 09/23/2010 take as directed edsjzyct-oaywapjdo-UO 3.5-10,000-10 mg-unit-mg/mL opht halmic drops,suspension 07/13/2010 09/23/2010 [...] MOUTH DAILY Heavy periods with severe cramps Problem List Description Status Onset Anxiety Disorder Active Depressive Disorder Active Colitis Active Abdominal [...] HC BMI BSA BMI Percentile O2 Sat(%) 04/09/2018 9:08:00 AM 130 mmHg 66 mmHg [...] Bicillin CR 1.2 [facility]#[id number] Clini c Reviewed 02/12/2015 12:00 AM COMPLETE [...] 9:48AM Abscess Apr 22 2009 9:48AM Anxiety Disorder Depressive Disorder Stress Incontinence, Female Chronic Gastric [...] media, recurrence not specified Ja n 11 2017 9:46AM Eustachian tube dysfunction, right Jul 04 [...] for screening mammogram Apr 09 2018 9:11AM Payers Insurance Name Company Name Plan Name Plan Number Policy Number Quirino cy Group Number Start Date BCBS [employer] [place] [id number] N/ A [employer] Financial Assistance [employer] Fin ancial [facility] 50 percent clinics June Early Detection Works [employer] [id number] Friday, August 17, 2012 BCBS [employer] [place] [id number] We May 28, 2014 History of Encounters Visit Date Visit Type Provider 04/09/2018 Office visit Kasi Colon DO 03/11/2018 [...] Kasi Colon DO 06/15/2016 Office visit Kasi Colon DO 05/02/2016 Office visit Kasi Colon DO 02/24/2016 Office visit Kasi Colon DO 11/30/2015 Office visit Kasi Colon DO 11/24/2015 Office visit Ji Victor MD 05/13/2015 Office visit Magda Chen APRN 04/13/2015 Office visit Magda Chen APRN 03/23/2015 Office visit Ji Victor MD 03/13/2015 [facility] Ji Victor MD 03/02/2015 Office visit Ji Victor MD 02/12/2015 Office visit Kasi Colon DO 09/09/2014 Office visit Kasi Colon DO 02/24/2014 Office visit Ji Victor MD 12/30/2013 Office visit Ji Victor MD 11/25/2013 Office visit Ji Victor MD 11/14/2013 [facility] Ji Victor MD 11/04/2013 Office [...]
--- OUTSIDE RECORDS SUMMARY | 2019-08-23 11:26 | XMS REPORT ---
Author Author Lindsey Cameron Organization [facility] Address [address] [place], [place] [id number] Care Team Providers Care Superintendent Operating Name Role Phone Ruth Cameron PCP JI ROSA PreferredProvider Allergies and Adverse [...] TAKE 1 TABLET BY MOUTH ONCE DAILY mesalamine 1.2 gram oral tablet,delayed release (DR/EC) 8 08/19/2018 TAKE 4 TABLET BY MOUTH EVERY DAY WITH BREAKFAST. SWALLOW WHOLE; DO NOT BREAK, CHEW OR CRUSH. Tri-Sprintec (28) 0.18/0.215/0.25 mg-35 mcg (28) oral tablet 02/04 TAKE 1 TABLET BY MOUTH DAILY Vyvanse 50 mg oral capsule 02/20/2018 03/22/2018 take 1 capsule (50 mg) by oral route once daily in the morning for 30 days Zoloft 100 mg oral tablet 03/09/2018 05/08/2018 take 1 tablet (100 mg) by oral route once daily for 30 days Sudogest 30 mg oral tablet 03/09/2018 take 2 tablets (60 mg) by oral route every 6 hours as needed prednisone 20 mg oral tablet 03/11/2018 03/16/2018 sirena e 2 tablet by oral route once daily Name Start Date Expiration Date SIG Comments [...] tablets,dose pack 07/13/2010 09/23/2010 take as directed mlehlqzb-fwxyytdur-ZG 3.5-10,000-10 mg-unit-mg/mL opht halmic drops,suspension 07/13/2010 09/23/2010 [...] oral route every 12 hours as needed nystatin 100,000 unit/gram topical cream 12/25/2017 03/11/20 18 apply to the affected area(s) by topical route 2 times per day says she doesnt use Problem List Description Status Onset Anxiety Disorder [...] HC BMI BSA BMI Percentile O2 Sat(%) 03/11/2018 1:45:00 PM 114 mmHg 70 mmHg [...] 1.2 million units [facility]# 6079 3-600-10 Reviewed 11/30/2015 12:00 AM COMPLETE [...] 03/11/2018 12:00 AM THER/PROPH/DIAG INJ SC/IM Reviewed 09/10/2013 [...] Bicillin CR 1.2 [facility]#[id number] Clini c Reviewed 02/12/2015 12:00 AM COMPLETE [...] 1:48PM Crohn disease Mar 11 2018 1:48PM Payers Insurance Name Company Name Plan Name Plan Number Policy Number Quirino cy Group Number Start Date BCBS [facility] [id number] N/ A [employer] Financial Assistance [employer] [facility] clinics June Early Detection [employer] [id number] Friday, August 17, 2012 BCBS [facility] [id number] We May 28, 2014 History of Encounters Visit Date Visit Type Provider 03/11/2018 Office visit Ruth WISEMAN 12/25/2017 Office visit Kasi Colon DO 12/11/2017 [...] Victor MD 05/13/2015 Office visit Magda Chen POST TENSIONING IRONWORKER 04/13/2015 Office visit Magda Chen POST TENSIONING IRONWORKER 03/23/2015 Office visit Ji Victor MD 03/13/2015 Hospital Ji Victor MD 03/02/2015 Office visit Ji Victor MD 02/12/2015 Office visit Kasi Isaiah DO 09/09/2014 Office visit Kasi Isaiah DO 02/24/2014 Office visit Ji Victor MD 12/30/2013 Office visit Ji Victor MD 11/25/2013 Office visit Ji Victor MD 11/14/2013 [facility] Ji Victor MD 11/04/2013 Office visit Ji Victor MD 11/04/2013 Office visit Kasi Isaiah DO 10/21/2013 Office visit Kb Perry MD 10/01/2013 Office visit Kb Perry MD 09/10/2013 Office visit Kasi Isaiah DO 07/08/2013 Office visit Magda Chen POST TENSIONING IRONWORKER 02/18/2013 Office visit Kasi Isaiah DO 10/24/2012 [...]
--- OUTSIDE RECORDS SUMMARY | 2019-08-23 11:27 | XMS REPORT ---
Author Author Lindsey Colon Organization [facility] Address [address] [place], [place] [phone] Care Team Providers Care Color Maker Formulator Name Role Phone Kasi Colon PCP JI [...] CHEW OR CRUSH. ADMINISTER WITH A MEAL. Tri-Sprintec (28) 0.18/0.215/0.25 mg-35 mcg (28) oral tablet 03/2017 TAKE 1 TABLET BY MOUTH DAILY pantoprazole 40 mg oral tablet,delayed release (DR/EC) 07/24/2017 07/19/2018 TAKE 1 TABLET BY MOUTH ONCE DAILY mesalamine 1.2 gram oral tablet,delayed release (DR/EC) 8 08/19/2018 TAKE 4 TABLET BY MOUTH EVERY DAY WITH BREAKFAST. SWALLOW WHOLE; DO NOT BREAK, CHEW OR CRUSH. Sudogest 30 mg oral tablet 11/03/2017 take 2 tablets (60 mg) by oral route every 6 hours as needed Zoloft 100 mg oral tablet 12/04/2017 01/03/2018 take 1 tablet (100 mg) by oral route once daily for 30 days Vyvanse 50 mg oral capsule 12/11/2017 01/10/2018 take 1 capsule (50 mg) by oral route once daily in the morning for 30 days sulfamethoxazole-trimethoprim 800-160 mg oral tablet 12/25/2017 01/01/2018 take 1 tablet by oral route every 12 hours for 7 days nystatin 100,000 unit/gram topical cream 12/25/2017 apply to the affected area(s) by topical route 2 times per day Name Start [...] 7 days omeprazole 40 mg oral capsule,delayed release(/EC) 03/23/2015 07/21/2015 take 1 capsule (40 mg) [...] once daily before breakfast for 30 days Discontinued Name Start Date [...] tablets,dose pack 07/13/2010 09/23/2010 take as directed zmfgrxxi-sudaocnls-KH 3.5-10,000-10 mg-unit-mg/mL opht halmic drops,suspension 07/13/2010 09/23/2010 [...] HC BMI BSA BMI Percentile O2 Sat(%) 12/25/2017 8:40:00 AM 122 mmHg 78 mmHg 18 rpm 97.9 F 201.5 lbs 64 in 34.587 kg/m 2.0315 m 12/11/2017 10:04:00 AM 134 mmHg [...] 12:00 AM Bicillin CR, 1.2 million units [facility]# 6079 3-600-10 Reviewed 11/30/2015 12:00 AM [...] Reviewed 10/15/2012 12:00 AM MAMMOGRAM SCREENING Reviewed 09/10/2013 12:00 AM CYTOPATH C/V THIN [...] Reviewed 01/14/2011 12:00 AM Bicillin CR 1.2 [facility]#[id number] Clini c Reviewed 02/12/2015 12:00 AM COMPLETE [...] depressive disorder, recurrent episode; mild Jul 21 20 10 3:14PM Cellulitis and abscess of [...] 2017 8:46AM Abscess Dec 25 2017 8:46AM Payers Insurance Name Company Name Plan Name Plan Number Policy Number Quirino cy Group Number Start Date BCBS [employer] [facility] [id number] N/ A [employer] 4U Financial Assistance Car Loan 4U [facility] ancial [facility] 50 percent clinics June Early Detection Works Early Detection [employer] [id number] Friday, August 17, 2012 BCBS [employer] [facility] [id number] We May 28, 2014 History of Encounters Visit Date Visit Type Provider 12/25/2017 Office visit Kasi Colon DO 12/11/2017 [...] 03/23/2015 Office visit Ji Victor MD 03/13/2015 [facility] Ji Victor MD 03/02/2015 Office visit Ji [...]
--- OUTSIDE RECORDS SUMMARY | 2019-08-23 11:27 | XMS REPORT ---
Author Author Lindsey Colon Organization [facility] Address [address] [place], [place] [address] Care Team Providers Care Vinyl Dipper Name Role Phone Kasi Colon PCP JI ROSA PreferredProvider Allergies and Adverse Reactions Name Reaction Notes NO KNOWN DRUG ALLERGIES Plan of Treatment Planned Activity Comments Planned Date Planned Time Plan/Goal Basic metabolic profile 05/13/2015 12:00 AM Interferon gamma release assay for detection of tuberculosis 12/25/2017 12:00 AM Medications Active Name Start Date [...] mesalamine 1.2 gram oral tablet,delayed release (DR/EC) 08/19/2018 TAKE 4 TABLET BY MOUTH EVERY [...] tablets,dose pack 07/13/2010 09/23/2010 take as directed gptdgrbp-yicnhdpgh-VO 3.5-10,000-10 mg-unit-mg/mL opht halmic drops,suspension 07/13/2010 09/23/2010 [...] AM Bicillin CR, 1.2 million units [facility]# 6079 3-600-10 Reviewed 11/30/2015 12:00 AM COMPLETE [...] 07/18/2017 12:00 AM Depo-Medrol 80mg Injection Reviewed 10/15/2012 12:00 AM CYTOPATH C/V THIN [...] 01/14/2011 12:00 AM Bicillin CR 1.2 [facility]#[id number] Clini c Reviewed 02/12/2015 12:00 AM COMPLETE [...] TSH 2.120 uIU/mLT4 8.0 ug/dLANA Direct Negative History Of Immunizations Not available. History of [...] Group Number Start Date BCBS [employer] [place] [id number] N/ A D2S Financial Assistance D2S [facility] 50 percent clinics June [employer] Early [employer] [id number] Friday, August 17, 2012 BCBS [employer] [place] [id number] We May 28, 2014 History of Encounters [...] 03/23/2015 Office visit Ji Victor MD 03/13/2015 [facility] Ji Victor MD 03/02/2015 Office visit Ji Victor MD 02/12/2015 Office visit Kasi Colon DO 09/09/2014 Office visit Kasi Colon DO 02/24/2014 Office visit Ji Victor MD 12/30/2013 Office visit Ji Victor MD 11/25/2013 Office visit Ji Victor MD 11/14/2013 [facility] Ji Victor MD 11/04/2013 Office visit [...]
--- OUTSIDE RECORDS SUMMARY | 2019-08-23 11:28 | XMS REPORT ---
Author Author Lindsey ROSA Organization [facility] Address [address] [place], [place] [address] Care Team Providers Care Jewelry Consultant Name Role Phone CONRADO ROSA PCP CONRADO ROSA PreferredProvider Allergies and Adverse Reactions Name [...] 03/2017 TAKE 1 TABLET BY MOUTH DAILY pseudoephedrine HCl 120 mg oral tablet extended release 04/21/20 17 take 1 tablet (120 mg) by oral route every 12 hours as needed pantoprazole 40 mg oral tablet,delayed release (DR/EC) [...] tablets,dose pack 07/13/2010 09/23/2010 take as directed uxfxrlav-jrtntrfpg-JX 3.5-10,000-10 mg-unit-mg/mL opht halmic drops,suspension 07/13/2010 09/23/2010 [...] week then 1 tablet daily as needed Problem List Description Status Onset [...] HC BMI BSA BMI Percentile O2 Sat(%) 12/11/2017 10:04:00 AM 134 mmHg 74 mmHg [...] 98.4 F 208 lbs 64 in 35.7028 kg/m 2.0641 m 98 % 02/01/2017 6:28:00 AM 118 mmHg 78 mmHg 80 bpm 16 rpm 98.6 F 209 lbs 64 in 35.87 kg/m2 2.07 m2 98 % 11/28/2016 11:12:00 AM 108 mmHg 74 mmHg 78 bpm 16 rpm 98.2 F 212 lbs 64 in 36.3893 kg/m 2.0838 m 98 % 11/01/2016 11:17:00 AM 132 mmHg 84 mmHg 94 bpm 18 rpm 97.4 F 210 lbs 64 in 36.05 kg/m2 2.07 m2 98 % 08/16/2016 2:04:00 PM 130 mmHg 66 mmHg 96 bpm 20 rpm 98.3 F 212 lbs 64 in 36.3893 kg/m 2.0838 m 98 % 07/04/2016 9:37:00 AM 130 mmHg 76 mmHg 76 bpm 18 rpm 98.2 F 212 lbs 64 in 36.39 kg/m2 2.08 m2 97 % 06/15/2016 9:44:00 AM 128 mmHg 72 mmHg 80 bpm 16 rpm 98 F 208 lbs 64 in 35.7028 kg/m 2.0641 m 98 % 05/02/2016 2:41:00 PM 120 mmHg 72 mmHg 88 bpm 16 rpm 98 F 208 lbs 64 in 35.70 kg/m2 2.06 m2 99 % 02/24/2016 10:00:00 AM 124 mmHg 72 mmHg 81 bpm 17 rpm 97 F 202 lbs 66 in 32.6033 kg/m 2.0656 m 97 % 11/30/2015 1:30:00 PM 130 mmHg 76 mmHg 16 rpm 98.4 F 194 lbs 66 in 31.31 kg/m2 2.02 m2 100 % 11/24/2015 11:46:00 AM 112 mmHg 84 mmHg 85 bpm 20 rpm 194 lbs 64 in 33.2997 kg/m 1.9934 m 98 % 05/13/2015 2:45:00 PM [...] 12:00 AM Bicillin CR, 1.[address] [facility]# 6079 3-600-10 Reviewed 11/30/2015 12:00 AM [...] Reviewed 01/14/2011 12:00 AM Bicillin CR 1.[address] 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 Dec 11 2017 10:05AM Payers Insurance Name Company Name Plan Name Plan Number Policy Number Quirino cy Group Number Start Date [facility] [id number] N/ A [employer] Financial Assistance [employer] [facility] 50 percent [employer] June Early Detection Works Early Detection Works [id number] Friday, August 17, 2012 BS [facility] [id number] We May 28, 2014 History of Encounters Visit Date Visit Type Provider 12/11/2017 Office visit CONRADO WEINBERG 09/12/2017 Office visit CONRADO WEINBERG 07/18/2017 Office visit CONRADO WEINBERG 03/14/2017 Office visit Kasi Leongte DO 01/31/2017 Office visit CONRADO WEINBERG 11/28/2016 Office visit CONRADO WEINBERG 11/01/2016 Office visit CONRADO WEINBERG 08/16/2016 Office visit Kasi Isaiah DO 07/04/2016 Office visit Kasi Colon DO 06/15/2016 Office visit Kasi Isaiah DO 05/02/2016 Office visit Kasi Isaiah DO 02/24/2016 Office visit Kasi Isaiah DO 11/30/2015 Office visit Kasi Isaiah DO 11/24/2015 Office visit Conrado Victor MD 05/13/2015 Office visit Magda Chen WORDPRESS DEVELOPER 04/13/2015 Office visit Magda Chen WORDPRESS DEVELOPER 03/23/2015 Office visit Conrado Victor MD 03/13/2015 [facility] Conrado Victor MD 03/02/2015 Office visit Conrado Victor MD 02/12/2015 Office visit Kasi Colon DO 09/09/2014 Office visit Kasi Colon DO 02/24/2014 Office visit Conrado Victor MD 12/30/2013 Office visit Conrado Victor MD 11/25/2013 Office visit Conrado Victor MD 11/14/2013 [facility] Conrado Victor MD 11/04/2013 Office visit Conrado Victor MD 11/04/2013 Office visit Kasi Colon DO 10/21/2013 Office visit Kb Perry MD 10/01/2013 Office visit Kb Perry MD 09/10/2013 Office visit Kasi Colon DO 07/08/2013 Office visit Magda Chen WORDPRESS DEVELOPER 02/18/2013 Office visit Kasi Colon DO 10/24/2012 Office visit Kasi Isaiah DO 10/15/2012 Office visit Kasi Isaiah DO 06/21/2012 Office visit Kasi Isaiah DO 04/20/2012 Office visit Kasi Colon DO 01/11/2012 Office visit Kasi Isaiah DO 11/29/2011 Office visit Kasi Isaiah DO 09/30/2011 Office visit Kasi Isaiah DO 07/04/2011 Office visit Kasi Leongte DO 05/24/2011 Office visit Kasi Arshadhite DO 03/18/2011 Voided Kasi Isaiah DO 01/14/2011 Office visit Meenakshi WEINBERG 11/02/2010 Office visit Kasi Leongte DO 09/23/2010 Office visit Kasi Leongte DO 07/21/2010 Office visit Kasi Leongte DO 07/13/2010 Office visit Kasi Leongte DO [...]
--- OUTSIDE RECORDS SUMMARY | 2019-08-23 11:29 | XMS REPORT ---
Author Author Lindsey Colon Organization [facility] Address [address] [place], [place] [id number] Care Team Providers Care Overlock Collar Setter Name Role Phone Kasi Colon PCP Unavailable Allergies and Adverse Reactions Name Reaction Notes NO KNOWN DRUG ALLERGIES Plan of Treatment Planned Activity Comments Planned Date Planned Time Plan/Goal COMPREHEN METABOLIC PANEL 07/04/2011 12:00 AM LIPID PANEL 07/04/2011 12:00 AM ASSAY THYROID STIM HORMONE 07/04/2011 12:00 AM ASSAY OF FREE THYROXINE 07/04/2011 12:00 AM ASSAY OF ESTRADIOL 07/04/2011 12:00 AM ASSAY OF GONADOTROPIN (LH) 07/04/2011 12:00 AM ASSAY OF PHENYTOIN TOTAL 11/07/2012 12:00 AM MAMMOGRAM SCREENING 09/10/2013 12:00 AM Medications Active Name Start Date Estimated Completion Date SIG Co mments Lialda oral tablet,delayed release (DR/EC) 1.2 gram take 4 tablets (4.8 gram) by oral route once daily with a meal Dr. Wilber Toth oral one tablet by oral route twi ce daily Contrave oral tablet extended release 8-90 mg 09/09/2014 take 1 tab by mouth in am 7 days 1 tab BID 7 days 2 tabs am and 1 tab pm 7 days 2 tabs BID Tri-Linyah oral tablet 0.18/0.215/0.25 mg-35 mcg (28) 09/09/2014 TAKE 1 TABLET BY MOUTH ONCE A DAY zolpidem oral tablet 5 mg 10/22/2014 11/21/2014 take 1 tablet (5 mg) by oral route once daily at bedtime for 30 days Bactrim DS oral tablet 800-160 mg 10/30/2014 take 1 tablet by oral route every 12 hours Name Start Date Expiration Date SIG Comments Bactrim DS Oral Tablet 160-800 mg 07/21/2009 07/31/2009 take 1 tablet by oral route every 12 hours for 10 days Cipro Oral Tablet 250 mg 02/19/2010 02/22/2010 take 1 tablet (250 mg) by oral route 2 times a day for 3 days Phentermine Oral Tablet 37.5 mg 07/21/2010 08/20/2010 take 1 tablet (37.5 mg) by oral route once daily before breakfast for 30 daysDx: Short term weight loss Cipro Oral Tablet 500 mg 07/21/2010 07/28/2010 take 1 tablet (500 mg) by oral route every 12 hours for 7 days Bactrim DS Oral Tablet 800-160 mg 09/23/2010 10/03/2010 take 1 tablet by oral route every 12 hours for 10 days phentermine Oral tablet 37.5 mg 06/21/2012 07/21/2012 take 1 tablet (37.5 mg) by oral route once daily before breakfast for 30 daysDx: Short term weight loss Tri-Sprintec (28) oral tablet 0.18/0.215/0.25 mg-35 mcg (28) 06/21/2012 07/19/2012 TAKE 1 TABLET BY MOUTH ONCE A DAY Tri-Linyah oral tablet 0.18/0.215/0.25 mg-35 mcg (28) 09/10/2013 09/09/2014 TAKE 1 TABLET BY MOUTH ONCE A DAY Provera oral tablet 10 mg 09/13/2013 09/18/2013 take 1 tablet (10 mg) by oral route once daily for 5 days metronidazole oral tablet 500 mg 10/01/2013 take 4 tablets (2 gram) by oral route once Cortenema rectal enema 100 mg/60 mL 12/27/2013 12/31/2013 insert 60 milliliters (100 mg) by rectal route once daily for 4 days Reglan oral tablet 10 mg 02/10/2014 02/15/2014 take 1 tablet (10 mg) by oral route 4 times per day 30 minutes before meals and at bedtime for 5 days Apriso oral capsule,extended release 24hr 0.375 gram 02/24/2014 03/26/2014 take 4 capsules (1,500 mg) by oral route once daily in the morning for 30 days Azulfidine oral tablet 500 mg 04/07/2014 05/05/2014 ta ke 2 tablets by oral route 3 times a day for 14 days Cipro oral tablet 500 mg 04/11/2014 04/16/2014 take 1 tablet (500 mg) by oral route every 12 hours for 5 days Bactrim DS oral tablet 800-160 mg 05/08/2014 05/15/2014 take 1 tablet by oral route every 12 hours for 7 days Discontinued Name Start Date Discontinued Date SIG Comments Lexapro Oral Tablet 10 mg 07/21/2009 10/27/2009 take 1 tablet (10 mg) by oral route once daily no longer taking Phentermine Oral Tablet 37.5 mg 01/11/2010 02/17/2010 take 1 tablet (37.5 mg/day) by oral route once daily before breakfast for 30 daysDX: Short term weight loss Bactrim DS Oral Tablet 800-160 mg 02/17/2010 02/19/2010 take 1 tablet by oral route every 12 hours for 7 days Paxil Oral Tablet 20 mg 02/17/2010 07/13/2010 take 1 t ablet (20 mg) by oral route once daily for 30 days Phentermine Oral Tablet 37.5 mg 05/25/2010 07/13/2010 take 1 tablet (37.5 mg) by oral route once daily before breakfast Augmentin Oral Tablet 875-125 mg 07/13/2010 09/23/2010 take 1 tablet by oral route every 12 hours Medrol (Jona) Oral Tablets, Dose Pack 4 mg 07/13/2010 09/23/2010 take as directed Uralxrot-Pmoixtxbh-OC Ophthalmic Drops, Suspension 3.5 -10,000-10 mg-unit-mg/mL 07/13/2010 09/23/2010 instill 3 drops into affecte d eye(s) by ophthalmic route 3 times a day Bupropion HCl Oral Tablet Sustained Release 24 hr 150 mg 09/24/19 11 11/02/2010 take 1 tablet (150 mg) by oral route once daily Cymbalta Oral Capsule, Delayed Release(E.C.) 30 mg 11/02/2010 07/04/2011 Take 1 capsule daily for 2 weeks then increase to 60 mg daily "never started taking" Claritin-D 12 Hour Oral Tablet Extended Release 12 hr 5-120 mg 05/24/2011 07/04/2011 take 1 tablet by oral route once a day (in the morning ) as needed phentermine Oral Tablet 37.5 mg 05/24/2011 07/04/2011 take 1 tablet (37.5 mg) by oral route once daily before breakfast for 30 daysDx: Short term weight loss cardiac murmur Diflucan Oral Tablet 150 mg 09/30/2011 take 1 tablet (150 mg) by oral route once sertraline Oral Tablet 100 mg 11/07/2011 11/29/2011 ta ke 1 tablet (100 mg) by oral route once daily for 30 days citalopram Oral Tablet 40 mg 01/02/2012 06/21/2012 sirena e 1 tablet (40 mg) by oral route once daily for 30 days Cipro Oral tablet 500 mg 01/11/2012 10/15/2012 take 1 tablet (500 mg) by oral route 2 times per day promethazine Oral tablet 25 mg 02/02/2012 10/15/2012 t blanca 1 tablet (25 mg) by oral route every 6 hours as needed Cymbalta Oral capsule,delayed release(DR/EC) 30 mg 06/21/2012 10/15/2012 take 1 capsule by oral route daily for 7 days Cymbalta Oral capsule,delayed release(DR/EC) 60 mg 06/21/2012 10/15/2012 take 1 capsule (60 mg) by oral route once daily for 21 days "I stopped it when I was sick" bupropion HCl Oral tablet extended release 24 hr 150 mg 3 07/08/2013 take 1 tablet (150 mg) by oral route once daily for 1 week then 2 tablets (300 mg) once daily Dilantin Extended Oral capsule 100 mg 10/24/2012 07/08/2013 take 2 capsule (100 mg) by oral route 3 times a day cyclobenzaprine oral tablet 10 mg 04/29/2013 07/08/2013 take 1 tablet (10 mg) by oral route 2 times per day as needed Dexedrine Spansule oral capsule, extended release 10 mg 09/10/2013 09/10/2013 take 1 capsule (10 mg) by oral route once daily $100 per month can't afford it phentermine oral tablet 37.5 mg 09/10/2013 10/01/2013 take 1 tablet (37.5 mg) by oral route once daily before breakfast for 30 days diethylpropion oral tablet extended release 75 mg 11/04/2013 09/09/2014 take 1 tablet (75 mg) by oral route once daily , in midmorning Dx: Short term weight loss prednisone oral tablet 10 mg 02/13/2014 02/24/2014 sirena e 4 tablets by [...] (20 mg) once a day fo promethazine oral tablet 25 mg 04/09/2014 09/09/2014 t blanca 1 tablet (25 mg) by oral route every 6 hours as needed Lomotil oral tablet 2.5-0.025 mg 04/09/2014 09/09/2014 take 2 tablets (5 mg) by oral route 3 times per day as needed guaifenesin oral tablet 400 mg 05/08/2014 09/09/2014 t blanca 1 tablet (400 mg) by oral route every 4 hours as needed Problem List Description Status Onset Anxiety Disorder Active Depressive Disorder Active Colitis Active Abdominal Pain Active Colonic Polyps, Personal History of Active 2009 Ulcerative colitis Active 09/09/2014 Vital Signs Date Time BP-Sys(mm[Hg] BP-Yesenia(mm[Hg]) HR(bpm) RR(rpm) Temp WT HT HC BMI BSA BMI Percentile O2 Sat(%) 09/09/2014 8:31:00 AM 134 mmHg 70 mmHg [...] 97.1 F 179.5 lbs 65 i n 29.87 kg/m2 1.93 m2 02/17/2010 3:30:00 PM 124 mmHg 72 mmHg 64 bpm 16 rpm 97.6 F 181 lbs 01/11/2010 9:04:00 AM 122 mmHg 70 mmHg 64 bpm 16 rpm 97.1 F 183.5 lbs 65 in 30.54 kg/m2 1.95 m2 11/25/2009 8:49:00 AM 128 mmHg 78 mmHg 70 bpm 16 rpm 98.9 F 185 lbs 65 in 30.7853 kg/m 1.9617 m 10/27/2009 8:13:00 AM 130 mmHg 72 mmHg 78 bpm 16 rpm 98 F 190 lbs 65 in 31.62 kg/m2 1.99 m2 08/27/2009 3:45:00 PM 92 mmHg 68 mmHg 192 lbs 07/21/2009 3:10:00 PM 128 mmHg 88 mmHg 72 bpm 20 rpm 99.6 F 193 lbs 65 in 32.12 kg/m2 2.00 m2 04/22/2009 9:09:00 AM 105 mmHg 72 mmHg 80 bpm 18 rpm 98.1 F 198 lbs 65 in 32.9486 kg/m 2.0295 m Social History Name Description Comments Alcohol social use Tobacco Former smoker History of Procedures Date Ordered Description Order Status 07/04/2011 12:00 AM CYTOPATH C/V THIN LAYER Reviewed 07/04/2011 12:00 AM COMPUTER DX MAMMOGRAM ADD-ON Reviewed 01/15/2012 12:00 AM DRAINAGE OF SKIN ABSCESS Reviewed 10/15/2012 12:00 AM CYTOPATH C/V THIN LAYER Reviewed 10/15/2012 12:00 AM COMPLETE CBC AUTOMATED Reviewed 10/15/2012 12:00 AM MAMMOGRAM SCREENING Reviewed 09/10/2013 12:00 AM CYTOPATH C/V THIN LAYER Reviewed 10/01/2013 12:00 AM CHYLMD TRACH DNA AMP PROBE Returned 10/01/2013 12:00 AM N.GONORRHOEAE DNA AMP PROB Reviewed 10/01/2013 12:00 AM SMEAR WET MOUNT SALINE/INK Reviewed 10/21/2013 12:00 AM ASSAY THYROID STIM HORMONE Returned 10/21/2013 12:00 AM ASSAY OF GONADOTROPIN (FSH) Returned 02/17/2010 12:00 AM URINE CULTURE/COLONY COUNT Reviewed 02/17/2010 12:00 AM URINALYSIS AUTO W/O SCOPE Reviewed 02/17/2010 12:00 AM COMPUTER DX MAMMOGRAM ADD-ON Reviewed 04/22/2009 12:00 AM CYTOPATH C/V THIN LAYER Reviewed 04/22/2009 12:00 AM CULTURE OTHR SPECIMN AEROBIC Reviewed 04/22/2009 12:00 AM DRAINAGE OF SKIN ABSCESS Reviewed 02/10/2014 12:00 AM IMMUNOASSAY QUANT NOS NONAB Returned 02/10/2014 12:00 AM FLUORESCENT ANTIBODY SCREEN Returned 02/10/2014 12:00 AM IMMUNOFLUORESCENT STUDY Returned 02/13/2014 12:[address] ABD & PELV 1/> REGNS Returned 07/21/2010 12:00 AM CYTOPATH C/V THIN LAYER Reviewed 09/09/2014 12:00 AM CYTOPATH C/V THIN LAYER Reviewed 09/09/2014 12:00 AM MAMMOGRAM SCREENING Reviewed 09/09/2014 12:00 AM COMPLETE CBC W/AUTO DIFF WBC Reviewed 09/09/2014 12:00 AM COMPLETE CBC W/AUTO DIFF WBC Reviewed 01/14/2011 12:00 AM REMOVE IMPACTED EAR WAX UNI Reviewed 01/14/2011 12:00 AM THER/PROPH/DIAG INJ SC/IM Reviewed Results Summary Data and Description Results 10/15/2012 3:00 PM WBC 10.8 RBC 4.45 HGB 14.10 g/dLHCT 40.40 %MCV 91.0 fLMCH 31.70 pgMCHC 34.90 g/dLRDW CV 12.90 %MPV 10.20 fLPLT 245 %NEUT 58.20 %%LYMP 33.60 %%MONO 5.70 %%EOS 2.10 %%BASO 0.40 %#NEUT 6.29 #LYMP 3.63 #MONO 0.62 #EOS 0.23 #BASO 0.04 10/21/2013 10:58 AM TSH 1.370 uIU/mLFSH 1.0 mIU/ mL 11/14/2013 6:35 AM TEST UR NEGATIVE 11/14/2013 7:50 AM Atypical pANCA <1:20 titer 11/14/2013 11:00 AM C DIFFICILE NEGATIVE -- C DI FF TOXIN NOT DETECTED 02/10/2014 2:35 PM Atypical pANCA <1:20 titer 09/16/2014 8:14 AM WBC 11.1 RBC 5.23 HGB 11.50 g/dLHCT 37.40 %MCV 72.0 fLMCH 22.0 pgMCHC 30.70 g/dLRDW CV 18.30 %MPV 9.20 fLPLT 377 %NEUT 74.90 %%LYMP 18.0 %%MONO 5.10 %%EOS 1.50 %%BASO 0.50 %#NEUT 8.29 #LYMP 1.99 #MONO 0.56 #EOS 0.17 #BASO 0.05 History Of Immunizations Not available. History of [...] and abscess; buttock Jul 21 2010 8:19AM Bartholin's Gland Cyst Sep 23 2010 8:25AM Dietary Counseling Sep 23 2010 8:25AM Exercise Counseling Sep 23 2010 8:25AM Tobacco use disorder Sep 23 2010 8:25AM Dietary Counseling Nov 02 2010 3:45PM Exercise Counseling Nov 02 2010 3:45PM Pharyngitis, Acute Jan 14 2011 8:02AM Cerumen Impaction-Right Jan 14 2011 8:02AM Dietary Counseling May 24 2011 8:09AM Exercise [...] 8:33AM Cardiac murmur Sep 09 2014 8:33AM Payers Insurance Name Company Name Plan Name Plan Number Policy Number Quirino cy Group Number Start Date Bcbs Bcbs [facility] [id number] 2014 [employer] Financial Assistance [employer] [facility] ancial [employer] 50 percent clinics June [employer] [id number] [phone] Friday, August 17, 2012 History of Encounters Visit Date Visit Type Provider 09/09/2014 Office visit Kasi Colon DO 02/24/2014 Office visit Conrado Victor MD 12/30/2013 Office visit Conrado Victor MD 11/25/2013 Office visit Conrado Victor MD 11/14/2013 [facility] Conrado Victor MD 11/04/2013 Office visit Kasi Colon DO 11/04/2013 Office visit Conrado Victor MD 10/21/2013 Office visit Kb Perry MD 10/01/2013 Office visit Kb Perry MD 09/10/2013 Office visit Kasi Colon DO 07/08/2013 Office visit Magda Chen SUPERVISOR BOTTLE MACHINES 02/18/2013 Office visit Kasi Colon DO 10/24/2012 Office visit Kasi Colon DO 10/15/2012 Office visit Kasi Colon DO 06/21/2012 Office visit Kasi Colon DO 04/20/2012 Office visit Kasi Colon DO 01/11/2012 Office visit Kasi Isaiah DO 11/29/2011 Office visit Kasi Colon DO 09/30/2011 Office visit Kasi Colon DO 07/04/2011 Office visit Kasi Colon DO 05/24/2011 Office visit Kasi Colon DO 03/18/2011 Voided Kasi Colon DO 01/14/2011 Office visit Meenakshi WEINBERG 11/02/2010 Office visit Kasi Colon DO 09/23/2010 Office visit Kasi Colon DO 07/21/2010 Office visit Kasi Colon DO 07/13/2010 Office visit Kasi Colon DO 05/25/2010 Office visit Meenakshi WEINBERG 04/05/2010 Office visit Meenakshi WEINBERG 02/17/2010 Office visit Meenakshi WEINBERG 01/11/2010 Office visit Meenakshi WEINBERG 11/25/2009 Office visit Kasi Colon DO 10/27/2009 Office visit Kasi Colon DO 08/27/2009 Voided Meenakshi WEINBERG 08/27/2009 Nurse visit Jerilyn WEINBERG 07/21/2009 Office visit Jerilyn WEINBERG 04/22/2009 Office visit Meenakshi WEINBERG 04/07/2009 Office visit Jerilyn WEINBERG 03/03/2009 Office visit Kasi Colon DO 02/23/2009 Office visit Jitendra Kerns MD 02/18/2009 Surgery Jitendra Kerns MD 02/16/2009 Surgery Jitendra Kerns MD 02/06/2009 Surgery Jitendra Kerns MD 02/05/2009 Office visit Jitendra Kerns MD
--- OUTSIDE RECORDS SUMMARY | 2019-08-23 11:29 | XMS REPORT ---
Author Author Lindsey Chen Organization [facility] ou Address [address] [place], [place] [id number] Care Team Providers Care Sales & Service Associate Name Role Phone Magda Chen PCP Unavailable Allergies and Adverse Reactions Name Reaction Notes NO KNOWN DRUG ALLERGIES Plan of Treatment Planned Activity Comments Planned Date Planned Time Plan/Goal METABOLIC PANEL TOTAL CA 05/13/2015 12:00 AM COMPREHEN METABOLIC PANEL 07/04/2011 12:00 AM LIPID PANEL 07/04/2011 12:00 AM ASSAY THYROID STIM HORMONE 07/04/2011 12:00 AM ASSAY OF FREE THYROXINE 07/04/2011 12:00 AM ASSAY OF ESTRADIOL 07/04/2011 12:00 AM ASSAY OF GONADOTROPIN (LH) 07/04/2011 12:00 AM ASSAY OF PHENYTOIN TOTAL 11/07/2012 12:00 AM MAMMOGRAM SCREENING 09/10/2013 12:00 AM IRON BINDING TEST 02/12/2015 12:00 AM Medications Active Name Start Date Estimated Completion Date SIG Co mments Tri-Linyah 0.18/0.215/0.25 mg-35 mcg (28) oral tablet 09/09/2014 TAKE 1 TABLET BY MOUTH ONCE A DAY alprazolam 0.25 mg oral tablet 02/12/2015 t blanca 1 tablet (0.25 mg) by oral route once a day as needed Tri-Linyah 0.18/0.215/0.25 mg-35 mcg (28) oral tablet 03/07/2015 TAKE 1 TABLET BY MOUTH ONCE A DAY omeprazole 40 mg oral capsule,delayed release(DR/EC) 03/23/2015 07/21/2015 take 1 capsule (40 mg) by oral route once daily before a meal for 30 days zolpidem 5 mg oral tablet 04/14/2015 05/14/2015 take 1 .5 tablets by oral route once a day (at bedtime) for 30 days pantoprazole 40 mg oral tablet,delayed release (DR/EC) 1108/18/2015 take 1 tablet (40 mg) by oral route once daily for 30 days nystatin 100,000 unit/gram topical powder 05/13/2015 apply to the affected area(s) by topical [...] tablets,dose pack 07/13/2010 09/23/2010 take as directed xokzusjr-fntqfcutn-LD 3.5-10,000-10 mg-unit-mg/mL opht halmic drops,suspension 07/13/2010 09/23/2010 [...] with a meal Dr. Wilber Toth oral 04/13/2015 one tablet by oral route [...] per day in the morning and evening Problem List Description Status Onset Anxiety Disorder Active Depressive Disorder Active Colitis Active Abdominal pain Active Colonic Polyps, Personal History of Active 2009 Ulcerative colitis Active 09/09/2014 Vital Signs Date Time BP-Sys(mm[Hg] BP-Yesenia(mm[Hg]) HR(bpm) RR(rpm) Temp WT HT HC BMI BSA BMI Percentile O2 Sat(%) 05/13/2015 2:45:00 PM 120 mmHg 74 mmHg 103 bpm 18 rpm 97.6 F 190 lbs 64 in 32.61 kg/m2 1.97 m2 97 % 04/13/2015 3:10:00 PM 122 mmHg 62 mmHg 84 bpm 18 rpm 98.9 F 187 lbs 64 in 32.0981 kg/m 1.9571 m 98 % 03/02/2015 10:30:00 AM [...] m Social History Name Description Comments Alcohol Current some day social use Tobacco Former smoker History of Procedures Date Ordered Description Order Status 04/13/2015 12:00 AM Bicillin CR, 1.2 million units [facility]# [id number] 3-600-10 Reviewed 07/04/2011 12:00 AM CYTOPATH C/V THIN [...] Reviewed 01/14/2011 12:00 AM Bicillin CR 1.2 [facility]#[id number] Clini c Reviewed 02/12/2015 12:00 AM COMPLETE CBC W/AUTO DIFF WBC Reviewed 02/12/2015 12:00 AM ASSAY OF IRON Reviewed 02/12/2015 12:00 AM ASSAY OF FERRITIN Reviewed Results Summary Data and Description Results [...] -- C DI FF TOXIN NOT DETECTED Ova + Parasite Exam Final report 02/10/2014 2:35 PM Atypical pANCA <1:20 titer 09/16/2014 8:14 AM WBC 11.1 RBC 5.23 HGB 11.50 g/dLHCT 37.40 %MCV 72.0 fLMCH 22.0 pgMCHC 30.70 g/dLRDW CV 18.30 %MPV 9.20 fLPLT 377 %NEUT 74.90 %%LYMP 18.0 %%MONO 5.10 %%EOS 1.50 %%BASO 0.50 %#NEUT 8.29 #LYMP 1.99 #MONO 0.56 #EOS 0.17 #BASO 0.05 02/12/2015 4:30 PM FERRITIN 8.0 ng/mLIRON TOTAL 63.0 ug/dLTransferrin 348.0 mg/dLWBC 13.1 RBC 4.75 HGB 12.90 g/dLHCT 39.20 %MCV 83.0 fLMCH 27.20 pgMCHC 32.90 g/dLRDW CV 17.0 %MPV 9.80 fLPLT 325 %NEUT 63.90 %%LYMP 26.40 %%MONO 6.30 %%EOS 2.80 %%BASO 0.60 %#NEUT 8.34 #LYMP 3.45 #MONO 0.82 #EOS 0.37 #BASO 0.08 03/13/2015 6:35 AM TEST UR NEGATIVE History Of Immunizations Not available. History of [...] Eczema, unspecified eczema May 13 2015 2:47PM Payers Insurance Name Company Name Plan Name Plan Number Policy Number Quirino cy Group Number [id number] 2014 [employer] Financial Assistance [employer] ancial [employer] 50 percent clinics June [employer] Detection [employer] [id number] [phone] Friday, August 17, 2012 History of Encounters Visit Date Visit Type Provider 05/13/2015 Office visit Magda Chen APRN 04/13/2015 Office visit Magda Chen GREEN BUILDING DESIGN SPECIALIST 03/23/2015 Office visit Conrado Victor MD 03/13/2015 [facility] Conrado Victor MD 03/02/2015 Office visit Conrado Victor MD 02/12/2015 Office visit Kasi Colon DO 09/09/2014 Office visit Kasi Isaiah DO 02/24/2014 Office visit Conrado Victor MD 12/30/2013 Office visit Conrado Victor MD 11/25/2013 Office visit Conrado Victor MD 11/14/2013 [facility] Conrado Victor MD 11/04/2013 Office visit Conrado Victor MD 11/04/2013 Office visit Kasi Colon DO 10/21/2013 Office visit Kb Perry MD 10/01/2013 Office visit Kb Perry MD 09/10/2013 Office visit Kasi Isaiah DO 07/08/2013 Office visit Magda Chen GREEN BUILDING DESIGN SPECIALIST 02/18/2013 Office visit Kasi Isaiah DO 10/24/2012 [...]
--- OUTSIDE RECORDS SUMMARY | 2019-08-23 11:29 | XMS REPORT ---
Author Author Lindsey Colon Organization [facility] Address [address] [place], [place] [address] Care Team Providers Care Balling Head Tender Name Role Phone Kasi Colon PCP Unavailable [...] Estimated Completion Date SIG Co mments Lialda 1.2 gram oral tablet,delayed release (DR/EC) take 4 tablets (4.8 gram) by oral route once daily with a meal Dr. Merino Zadeb oral one tablet by oral route twi ce daily Contrave 8-90 mg oral tablet extended release 09/09/2014 take 1 tab by mouth in am 7 days 1 tab BID 7 days 2 tabs am and 1 tab pm 7 days 2 tabs BID Tri-Linyah 0.18/0.215/0.25 mg-35 mcg (28) oral tablet 09/09/2014 TAKE 1 TABLET BY MOUTH ONCE A DAY Bactrim DS 800-160 mg oral tablet 10/30/2014 take 1 tablet by oral route every 12 hours clotrimazole 1 % topical cream 12/08/2014 a pply to the affected and surrounding areas of skin by topical route 2 times per day in the morning and evening alprazolam 0.25 mg oral tablet 02/12/2015 t blanca 1 tablet (0.25 mg) by oral route once a day as needed zolpidem 5 mg oral tablet 02/12/2015 03/14/2015 take 1 .5 tablets by oral route once a day (at bedtime) for 30 days No rx given Name Start Date Expiration Date SIG Comments [...] tablets,dose pack 07/13/2010 09/23/2010 take as directed ygjxsens-tyalgdxal-IO 3.5-10,000-10 mg-unit-mg/mL opht halmic drops,suspension 07/13/2010 09/23/2010 [...] HC BMI BSA BMI Percentile O2 Sat(%) 02/12/2015 3:36:00 PM 124 mmHg 70 mmHg 85 bpm 16 rpm 98.5 F 182.25 lbs 64 i n 31.28 kg/m2 1.93 m2 99 % 09/09/2014 8:31:00 AM 134 mmHg 70 mmHg 90 bpm 16 rpm 98 F 195 lbs 64 in 33.4713 kg/m 1.9985 m 100 % 02/24/2014 12:01:00 PM 106 mmHg 74 mmHg 85 bpm 16 rpm 97.9 F 97 % 12/30/2013 1:11:00 PM 116 mmHg 76 mmHg 82 bpm 16 rpm 96.2 F 99 % 11/25/2013 10:52:00 AM 112 mmHg 76 mmHg 73 bpm 16 rpm 97.5 F 195 lbs 64 in 33.47 kg/m2 2.00 m2 100 % 11/04/2013 9:34:00 AM 136 mmHg 78 mmHg 74 bpm 16 rpm 97.8 F 195 lbs 64 in 33.4713 kg/m 1.9985 m 100 % 10/21/2013 9:41:00 AM 130 mmHg 76 mmHg 84 bpm 98.6 F 195 lbs 64 in 33.47 kg/m2 2.00 m2 10/01/2013 9:19:00 AM 132 mmHg 86 mmHg 84 bpm 98.5 F 196 lbs 64 in 33.643 kg/m 2.0036 m 09/10/2013 8:04:00 AM 128 mmHg 78 mmHg 79 bpm 20 rpm 98 F 192 lbs 64 in 32.96 kg/m2 1.98 m2 100 % 07/08/2013 8:30:00 AM 122 mmHg 64 mmHg 82 bpm 18 rpm 97.5 F 191.125 lbs 64 i n 32.8062 kg/m 1.9786 m 98 % 02/18/2013 8:09:00 AM 130 mmHg 72 mmHg 70 bpm 18 rpm 99.5 F 177 lbs 64 in 30.38 kg/m2 1.90 m2 98 % 10/24/2012 8:36:00 AM 132 mmHg 78 mmHg 70 bpm 20 rpm 99.9 F 174 lbs 65 in 28.9548 kg/m 1.9025 m 10/15/2012 1:49:00 PM 130 mmHg 72 mmHg 70 bpm 16 rpm 98.6 F 173 lbs 65 in 28.79 kg/m2 1.90 m2 06/21/2012 8:19:00 AM 115 mmHg 70 mmHg 83 bpm 18 rpm 98.1 F 171.5 lbs 65 in 28.5388 kg/m 1.8888 m 97 % 04/20/2012 8:04:00 AM 128 mmHg 70 mmHg 72 bpm 18 rpm 98.9 F 172 lbs 65 in 28.62 kg/m2 1.89 m2 01/11/2012 8:07:00 AM 122 mmHg 70 mmHg 76 bpm 18 rpm 98.2 F 176 lbs 65 in 29.2876 kg/m 1.9134 m 11/29/2011 8:20:00 AM 124 mmHg 66 mmHg 70 bpm 18 rpm 99.1 F 175 lbs 65 in 29.12 kg/m2 1.91 m2 09/30/2011 8:17:00 AM 124 mmHg 70 mmHg 70 bpm 16 rpm 98.2 F 165 lbs 65 in 27.4572 kg/m 1.8527 m 07/04/2011 8:40:00 AM 132 mmHg 70 mmHg 76 bpm 18 rpm 99.1 F 169 lbs 65 in 28.12 kg/m2 1.87 m2 05/24/2011 8:05:00 AM 101 mmHg 62 mmHg 98 bpm 98.5 F 167 lbs 65 in 27.79 kg/m 1.8639 m 97 % 03/18/2011 8:01:00 AM 98 mmHg 56 mmHg 87 bpm 18 rpm 97.2 F 167.562 lbs 98 % 01/14/2011 8:04:00 AM 128 mmHg 72 mmHg 76 bpm 16 rpm 97.4 F 163.25 lbs 11/02/2010 3:45:00 PM 128 mmHg 78 mmHg 76 bpm 18 rpm 99 F 158 lbs 65 in 26.29 kg/m2 1.81 m2 09/23/2010 8:24:00 AM 130 mmHg 74 mmHg 70 bpm 16 rpm 98.4 F 162 lbs 65 in 26.9579 kg/m 1.8358 m 07/21/2010 8:17:00 AM 112 mmHg 60 mmHg 68 bpm 18 rpm 97.5 F 165 lbs 65 in 27.46 kg/m2 1.85 m2 07/13/2010 10:34:00 AM 128 mmHg 78 mmHg [...] F 183.5 lbs 65 in 30.54 kg/m2 1.9538 m 11/25/2009 8:49:00 AM 128 mmHg 78 mmHg 70 bpm 16 rpm 98.9 F 185 lbs 65 in 30.7853 kg/m 1.96 m2 10/27/2009 8:13:00 AM 130 mmHg 72 mmHg 78 bpm 16 rpm 98 F 190 lbs 65 in 31.62 kg/m2 1.9881 m 08/27/2009 3:45:00 PM 92 mmHg [...] [facility]#[id number] Clini c Reviewed 02/12/2015 12:00 AM COMPLETE [...] 3.45 #MONO 0.82 #EOS 0.37 #BASO 0.08 History Of Immunizations Not available. History of [...] 3:38PM Anxiety Disorder Feb 12 2015 3:38PM Payers Insurance Name Company Name Plan Name Plan Number Policy Number Quirino cy Group Number [id number] 2014 [employer] Financial Assistance [employer] [facility] June [employer] [phone] Friday, August 17, 2012 History of Encounters Visit Date Visit Type Provider 02/12/2015 Office visit Kasi Colon DO 09/09/2014 Office visit Kasi Colon DO 02/24/2014 Office visit Conrado Victor MD 12/30/2013 Office visit Conrado Victor MD 11/25/2013 Office visit Conrado Victor MD 11/14/2013 [facility] Conrado Victor MD 11/04/2013 Office visit Conrado [...] Kasi Colon DO 01/11/2012 Office visit Kasi Colon DO 11/29/2011 Office visit Kasi Colon DO [...]
--- OUTSIDE RECORDS SUMMARY | 2019-08-23 11:30 | XMS REPORT ---
Author Author Lindsey Colon Organization [facility] Address [address] [place], [place] [address] Care Team Providers Care Grocery Store Clerk Name Role Phone Kasi Colon PCP Unavailable Kasi Colon PreferredProvider Unavailable Allergies and Adverse Reactions Name Reaction [...] mg) by subcutaneous route every 2 weeks Tri-Sprintec (28) 0.18/0.215/0.25 mg-35 mcg (28) oral tablet TAKE 1 TABLET BY MOUTH DAILY pantoprazole 40 mg oral tablet,delayed release (DR/EC) 06/28/2016 take 1 tablet (40 mg) by oral route once daily for 30 days cetirizine 10 mg oral tablet 07/04/2016 sirena e 2 tablets (20 mg) by oral route once daily at bedtime for 1 week then 1 tablet daily as needed Lialda 1.2 gram oral tablet,delayed release (DR/EC) 08/01/2016 TAKE 4 TABS BY MOUTH DAILY WITH BREAKFAST. SWALLOW WHOLE; DO NOT BREAK, CHEW OR CRUSH. ADMINISTER WITH A MEAL. montelukast 10 mg oral tablet 08/16/2016 ta ke 1 tablet (10 mg) by oral route once daily in the evening pseudoephedrine HCl 120 mg oral tablet extended release 7 take 1 tablet (120 mg) by oral [...] daily before a meal for 30 days omeprazole 40 mg oral capsule,delayed release(DR/EC) 03/23/2015 07/21/2015 take 1 capsule (40 mg) by oral route once daily before a meal for 30 days Switched to Pantoprazole zolpidem 5 mg oral tablet 04/14/2015 05/14/2015 take 1 .5 tablets by oral route once a day (at bedtime) for 30 days pantoprazole 40 mg oral tablet,delayed release (DR/EC) 08/18/2015 take 1 tablet (40 mg) by oral route once daily for 30 days Zithromax Z-Jona 250 mg [...] route every 12 hours for 10 days Discontinued Name Start Date Discontinued Date [...] tablets,dose pack 07/13/2010 09/23/2010 take as directed fcbnvyqr-jssvawtab-JV 3.5-10,000-10 mg-unit-mg/mL opht halmic drops,suspension 07/13/2010 09/23/2010 [...] with a meal Dr. 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" gentamicin 0.3 % ophthalmic drops 01/28/2016 02/05/2016 instill 2 drops into affected eye(s) by ophthalmic route 4 times a day sertraline 50 mg oral tablet 02/24/2016 03/07/2016 sirena e 0.5 tablet (25 mg) by oral route once daily for 6 days then 1 tablet (50 mg) once a day sertraline 50 mg oral tablet [...] oral route once daily for 30 days venlafaxine 150 mg oral capsule,extended release 24hr [...] me to be sick at my stomach" Problem List Description Status Onset Anxiety Disorder Active Depressive Disorder Active Colitis Active Abdominal pain Active Colonic Polyps, Personal History of Active 2009 Ulcerative colitis Active 09/09/2014 Nicotine addiction Active 12/06/2015 Vital Signs Date Time BP-Sys(mm[Hg] BP-Yesenia(mm[Hg]) HR(bpm) RR(rpm) Temp WT HT HC BMI BSA BMI Percentile O2 Sat(%) 08/16/2016 2:04:00 PM 130 mmHg 66 mmHg [...] 12:00 AM Bicillin CR, 1.2 million units [facility]# 6079 3-600-10 Reviewed 11/30/2015 12:00 [...] Reviewed 01/14/2011 12:00 AM Bicillin CR 1.2 [facility]#[id number] Clini c Reviewed 02/12/2015 12:00 AM COMPLETE CBC W/AUTO DIFF WBC Reviewed 02/12/2015 12:00 AM ASSAY OF IRON Reviewed 02/12/2015 12:00 AM IRON BINDING TEST Reviewed 02/12/2015 12:00 AM ASSAY OF FERRITIN Reviewed Results Summary Data and Description Results 04/22/2009 11:22 AM Lrg amt skin ayde 10/15/2012 3:00 PM WBC 10.8 RBC 4.45 [...] AM TEST UR NEGATIVE 11/14/2013 7:50 AM Saccharomycescerevisiae, IgG <20.0 Saccharomycescerevisiae, IgA <20.0 Atypical pANCA <1:20 titer 11/14/2013 11:00 AM C DIFFICILE NEGATIVE -- C DI FF TOXIN NOT DETECTED SOURCE: STOOL Ova + Parasite Exam Final report 02/10/2014 2:35 PM Saccharomycescerevisiae, IgG <20.0 Saccharomycescerevisiae, [...] 5 LYMPHS 21 MONOS 1 ANISO 1+ 03/13/2015 6:35 AM TEST UR NEGATIVE 11/24/2015 12:35 PM WBC 12.3 RBC 4.51 HGB 13.60 g/dLHCT 40.0 %MCV 89.0 fLMCH 30.20 pgMCHC 34.0 g/dLRDW SD 45 RDW CV 13.60 %MPV 9.80 fLPLT 232 NRBC# 0.00 NRBC% 0.0 %NEUT 68.50 %%LYMP 22.10 %%MONO 6.90 %%EOS 1.90 %%BASO 0.40 %#NEUT 8.43 #LYMP 2.73 #MONO 0.85 #EOS 0.24 #BASO 0.05 MANUAL DIFF NOT IND GLUCOSE 80.0 mg/dLSODIUM 139.0 mmol/LPOTASSIUM 3.90 mmol/LCHLORIDE 107.0 mmol/LCO2 23.0 mmol/LBUN 7.0 mg/dLCREATININE 0.70 mg/dLSGOT/AST 20.0 IU/LSGPT/ALT 18.0 IU/LALK PHOS 69.0 IU/LTOTAL PROTEIN 6.30 g/dLALBUMIN 3.80 g/dLTOTAL BILI 0.20 mg/dLCALCIUM 8.60 mg/dLAGE 45 GFR NonAA 91 GFR AA 110 eGFR >60 mL/min/1.73meGFR AA* >60 SEDRATE 22.0 mm/hr 11/30/2015 2:18 PM WBC 12.5 RBC 4.56 HGB 13.80 g/dLHCT 40.50 %MCV 89.0 fLMCH 30.30 pgMCHC 34.10 g/dLRDW SD 45 RDW CV 13.70 %MPV 9.60 fLPLT 289 NRBC# 0.00 NRBC% 0.0 %NEUT 64.40 %%LYMP 25.40 %%MONO 6.90 %%EOS 2.50 %%BASO 0.60 %#NEUT 8.02 #LYMP 3.16 #MONO 0.86 #EOS 0.31 #BASO 0.08 MANUAL DIFF NOT IND TSH 2.120 uIU/mLT4 8.0 ug/dLANA Direct Negative 07/04/2016 10:50 AM WBC 9.6 RBC 4.89 HGB 14.60 g /dLHCT 44.20 %MCV 90.0 fLMCH 29.90 pgMCHC 33.0 g/dLRDW SD 43 RDW CV 12.90 %MPV 9.80 fLPLT 287 NRBC# 0.00 NRBC% 0.0 %NEUT 63.90 %%LYMP 25.70 %%MONO 7.0 %%EOS 2.40 %%BASO 0.60 %#NEUT 6.11 #LYMP 2.46 #MONO 0.67 #EOS 0.23 #BASO 0.06 MANUAL DIFF NOT IND GLUCOSE 95.0 mg/dLSODIUM 139.0 mmol/LPOTASSIUM 4.20 mmol/LCHLORIDE 107.0 mmol/LCO2 24.0 mmol/LBUN 8.0 mg/dLCREATININE 0.70 mg/dLSGOT/AST 18.0 IU/LSGPT/ALT 16.0 IU/LALK PHOS 59.0 IU/LTOTAL PROTEIN 7.20 g/dLALBUMIN 3.90 g/dLTOTAL BILI 0.30 mg/dLCALCIUM 9.0 mg/dLAGE 46 GFR NonAA 90 GFR AA 109 eGFR >60 mL/min/1.73meGFR AA* >60 C REACTIVE PROTEIN 10.0 mg/LTSH 0.920 uIU/mLVITAMIN D 44.40 ng/mLFREE T4 1.12 History Of Immunizations Not available. History of [...] abscess; buttock Jul 21 2010 8:19AM Nicotine addiction 12/06/2015 Bartholin's Gland Cyst Sep 23 2010 [...] non-recurrent maxillary sinusitis Aug 16 2016 2:06PM Payers Insurance Name Company Name Plan Name Plan Number Policy Number Quirino cy Group Number Start Date [id number] [employer] Financial Assistance [employer] [facility] 50 percent clinics June Early Detection Works [employer] Detection Works [id number] [phone] Friday, August 17, 2012 History of Encounters Visit Date Visit Type Provider 08/16/2016 Office visit Kasi Colon DO 07/04/2016 Office visit Kasi Colon DO 06/15/2016 Office visit Kasi Colon DO 05/02/2016 Office visit Kasi Colon DO 02/24/2016 Office visit Kasi Colon DO 11/30/2015 Office visit Kasi Colon DO 11/24/2015 Office visit Conrado Victor MD 05/13/2015 Office visit Magda Chen APRN 04/13/2015 Office visit Magda Chen APRN 03/23/2015 Office visit Conrado Victor MD 03/13/2015 [facility] Conrado Victor MD 03/02/2015 Office visit Conrado Victor MD 02/12/2015 Office visit Kasi Colon DO 09/09/2014 Office visit Kasi Colon DO 02/24/2014 Office visit Conrado Victor MD 12/30/2013 Office visit Conrado Victor MD 11/25/2013 Office visit Conrado Victor MD 11/14/2013 [facility] Conrado Victor MD 11/04/2013 Office visit Conrado Victor MD 11/04/2013 Office visit Kasi Colon DO 10/21/2013 Office visit Kb Perry MD 10/01/2013 Office visit Kb Perry MD 09/10/2013 Office visit Kasi Colon DO 07/08/2013 Office visit Magda Chen APRN 02/18/2013 Office visit Kasi Colon DO 10/24/2012 Office visit Kasi Leongte DO 10/15/2012 Office visit Kasi Isaiah DO [...] Kasi Isaiah DO 09/23/2010 Office visit Kasi Leongte DO 07/21/2010 Office visit Kasi Isaiah DO [...]
--- OUTSIDE RECORDS SUMMARY | 2019-08-23 11:31 | XMS REPORT ---
Author Lindsey Merlos Organization [facility] Address [address] [place], [place] [id number] Care Team Providers Care Medical Accounting Clerk Name Role Phone Kasi Colon PCP Unavailable Kasi Colon PreferredProvider Unavailable Allergies and Adverse Reactions Name Reaction Notes NO KNOWN DRUG ALLERGIES Plan of Treatment Planned Activity Comments Planned Date Planned Time Plan/Goal Basic metabolic profile 05/13/2015 12:00 AM CBC (automated hemogram and platelets, with automated comple te differential) 11/30/2015 12:00 AM CBC W/ AUTO DIFF (RFLX MAN DIFF IF IND). 12/08/2015 12:00 AM Comprehensive metabolic panel 07/04/2011 12:00 AM Lipid panel (total cholesterol, lipoproteins, HDL, triglycerides ) 07/04/2011 12:00 AM Thyroid stimulating hormone (TSH) 07/04/2011 12:00 A M Thyroxine; free 07/04/2011 12:00 AM Estradiol 07/04/2011 12:00 AM Luteinizing hormone (LH) 07/04/2011 12:00 AM Phenytoin Level 11/07/2012 12:00 AM Screening Mammography, bilateral 09/10/2013 12:00 AM TIBC (iron binding capacity) 02/12/2015 12:00 AM Medications Active Name Start [...] tablet TAKE 1 TABLET BY MOUTH DAILY fluticasone 50 mcg/actuation nasal spray,suspension 06/15/2016 inhale 1 spray (50 mcg) in each nostril by intranasal route 2 times per day pantoprazole 40 mg oral tablet,delayed release (DR/EC) 06/28/2016 take 1 tablet (40 mg) by oral route once daily for 30 days cetirizine 10 mg oral tablet 07/04/2016 sirena e 2 tablets (20 mg) by oral route once daily at bedtime for 1 week then 1 tablet daily as needed Name Start Date Expiration Date [...] pantoprazole 40 mg oral tablet,delayed release (DR/EC) 5 08/18/2015 take 1 tablet (40 mg) by [...] tablets,dose pack 07/13/2010 09/23/2010 take as directed uoiikvne-zuntfhtnp-FF 3.5-10,000-10 mg-unit-mg/mL opht halmic drops,suspension 07/13/2010 09/23/2010 [...] needed Lialda 1.2 gram oral tablet,delayed release (/EC) 04/13/2015 take 4 tablets (4.8 gram) by [...] once daily for 30 days "did not cook pickled meat" gentamicin 0.3 % ophthalmic drops 01/28/2016 02/05/2016 [...] once daily for 30 days "didn't work" prednisone 20 mg oral tablet 06/15/2016 07/04/2016 sirena e 1 tablet (20 mg) by oral route once daily Problem List Description Status Onset Anxiety Disorder Active Depressive Disorder Active Colitis Active Abdominal Pain Active Colonic Polyps, Personal History of Active 2009 Ulcerative colitis Active 09/09/2014 Nicotine addiction Active 12/06/2015 Vital Signs Date Time BP-Sys(mm[Hg] BP-Yesenia(mm[Hg]) HR(bpm) RR(rpm) Temp WT HT HC BMI BSA BMI Percentile O2 Sat(%) 07/04/2016 9:37:00 AM 130 mmHg 76 mmHg [...] CR, 1.2 million units [facility]# 6079 3-600-10 Reviewed 11/30/2015 12:00 AM COMPLETE CBC W/AUTO DIFF WBC Reviewed 11/30/2015 12:00 AM ASSAY THYROID STIM HORMONE Reviewed 11/30/2015 12:00 AM ASSAY OF TOTAL THYROXINE Reviewed 11/30/2015 12:00 AM ANTINUCLEAR ANTIBODIES KARLIE Reviewed 07/04/2011 12:00 AM CYTOPATH C/V THIN [...] AM Bicillin CR 1.2 [facility]#[id number] Clini c Reviewed 02/12/2015 12:00 AM COMPLETE [...] tube dysfunction, right Jul 04 2016 9:39AM Payers Insurance Name Company Name Plan Name Plan Number Policy Number Quirino cy Group Number Start Date BCBS [facility] [place] [id number] We 2014 [employer] Financial Assistance [employer] [facility] 50 percent [facility] June Early Detection Works Early Detection Works [id number] Friday, August 17, 2012 History of Encounters Visit Date Visit Type Provider 07/04/2016 Office visit Kasi Isaiah DO 06/15/2016 Office visit Kasi Isaiah DO 05/02/2016 Office visit Kasi Isaiah DO 02/24/2016 Office visit Kasi Isaiah DO 11/30/2015 Office visit Kasi Isaiah DO 11/24/2015 Office visit Conrado Victor MD 05/13/2015 Office visit Magda Chen APRN 04/13/2015 Office visit Magda Chen APRN 03/23/2015 Office visit Conrado Victor MD 03/13/2015 [facility] Conrado Victor MD 03/02/2015 Office visit Conrado Victor MD 02/12/2015 Office visit Kasi Isaiah DO 09/09/2014 Office visit Kasi Colon DO 02/24/2014 Office visit Conrado Victor MD 12/30/2013 Office visit Conrado Victor MD 11/25/2013 Office visit Conrado Victor MD 11/14/2013 [facility] Conrado Victor MD 11/04/2013 Office [...]
--- OUTSIDE RECORDS SUMMARY | 2019-08-23 11:31 | XMS REPORT ---
Author Author Lindsey Colon Organization [facility] Address [address] [place], [place] [address] Care Team Providers Care Supervisor Dairy Sanitation Name Role Phone Kasi Colon PCP Unavailable [...] tablets,dose pack 07/13/2010 09/23/2010 take as directed [id number]-[id number]-PO 3.5-10,000-10 mg-unit-mg/mL opht halmic drops,suspension 07/13/2010 09/23/2010 [...] AM Bicillin CR 1.2 [facility]#[id number] Clini c Reviewed 02/12/2015 12:00 AM COMPLETE CBC W/AUTO DIFF WBC Returned 02/12/2015 12:00 AM ASSAY OF IRON Returned 02/12/2015 12:00 AM ASSAY OF FERRITIN Returned Results Summary Data and Description Results 10/15/2012 [...] Plan Name Plan Number Policy Number Quirino Group Number Start Date Bcbs [facility] [id number] 2014 [employer] Financial Assistance [employer] [facility] ancial [employer] 50 percent clinics June Early Detection Works Early Detection Works [id number] Friday, August 17, 2012 History of Encounters Visit Date Visit Type Provider 02/12/2015 Office visit Kasi Colon DO 09/09/2014 Office visit Kasi Colon DO 02/24/2014 Office visit Conrado Victor MD 12/30/2013 Office visit Conrado Victor MD 11/25/2013 Office visit Conrado Victor MD 11/14/2013 [facility] Conrado Victor MD 11/04/2013 Office visit Conrado Victor MD 11/04/2013 Office visit Kasi Isaiah [...]
--- OUTSIDE RECORDS SUMMARY | 2019-08-23 11:32 | XMS REPORT ---
Author Author Lindsey Colon Organization [facility] Address [address] [place], [place] [address] Care Team Providers Care Bag Loader Name Role Phone Kasi Colon PCP Unavailable Allergies and Adverse Reactions Name Reaction Notes NO KNOWN DRUG ALLERGIES Plan of Treatment Planned Activity Comments Planned Date Planned Time Plan/Goal METABOLIC PANEL TOTAL CA 05/13/2015 12:00 AM COMPLETE CBC W/AUTO DIFF WBC 11/30/2015 12:00 AM COMPLETE CBC W/AUTO DIFF WBC 12/08/2015 12:00 AM COMPREHEN METABOLIC PANEL 07/04/2011 12:00 [...] oral route once a day as needed Lialda 1.2 gram oral tablet,delayed release (DR/EC) 09/07/2015 TAKE 4 TABS BY MOUTH DAILY WITH BREAKFAST. SWALLOW WHOLE; DO NOT BREAK, CHEW OR CRUSH. ADMINISTER WITH A MEAL. Tri-Sprintec (28) 0.18/0.215/0.25 mg-35 mcg (28) oral tablet 10/03 TAKE 1 TABLET BY MOUTH DAILY Lialda 1.2 gram oral tablet,delayed release (DR/EC) 01/18/2016 TAKE 4 TABS BY MOUTH DAILY WITH BREAKFAST. SWALLOW WHOLE; DO NOT BREAK, CHEW OR CRUSH. ADMINISTER WITH A MEAL. gentamicin 0.3 % ophthalmic drops 01/28/2016 instill 2 drops into affected eye(s) by ophthalmic route 4 times a day Name Start Date Expiration Date SIG [...] route every 12 hours for 5 days Discontinued Name Start Date [...] tablets,dose pack 07/13/2010 09/23/2010 take as directed nvgrkunn-ovgnksvbc-VF 3.5-10,000-10 mg-unit-mg/mL opht halmic drops,suspension 07/13/2010 09/23/2010 [...] once daily with a meal Dr. 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" Problem List Description Status Onset Anxiety Disorder Active Depressive Disorder Active Colitis Active Abdominal Pain Active Colonic Polyps, Personal History of Active 2009 Ulcerative colitis Active 09/09/2014 Nicotine addiction Active 12/06/2015 Vital Signs Date Time BP-Sys(mm[Hg] BP-Yesenia(mm[Hg]) HR(bpm) RR(rpm) Temp WT HT HC BMI BSA BMI Percentile O2 Sat(%) 11/30/2015 1:30:00 PM 130 mmHg 76 mmHg [...] 12:00 AM Bicillin CR, 1.2 million units [facility]# 6079 3-600-10 Reviewed 11/24/2015 12:[address] ABD & PELV W/CONTRAST Returned 11/24/2015 12:00 AM COMPLETE CBC W/AUTO DIFF WBC Returned 11/24/2015 12:00 AM COMPREHEN METABOLIC PANEL Returned 11/24/2015 12:00 AM RBC SED RATE AUTOMATED Returned 11/30/2015 12:00 AM COMPLETE CBC W/AUTO DIFF [...] Reviewed 01/14/2011 12:00 AM Bicillin CR 1.2 [facility]#[id number] Clini c Reviewed 02/12/2015 12:00 AM COMPLETE [...] 0.08 03/13/2015 6:35 AM TEST UR NEGATIVE 11/24/2015 12:35 PM WBC 12.3 RBC 4.51 HGB 13.60 g/dLHCT 40.0 %MCV 89.0 fLMCH 30.20 pgMCHC 34.0 g/dLRDW CV 13.60 %MPV 9.80 fLPLT 232 %NEUT 68.50 %%LYMP 22.10 %%MONO 6.90 %%EOS 1.90 %%BASO 0.40 %#NEUT 8.43 #LYMP 2.73 #MONO 0.85 #EOS 0.24 #BASO 0.05 GLUCOSE 80.0 mg/dLSODIUM 139.0 mmol/LPOTASSIUM 3.90 mmol/LCHLORIDE 107.0 mmol/LCO2 23.0 mmol/LBUN 7.0 mg/dLCREATININE 0.70 mg/dLSGOT/AST 20.0 IU/LSGPT/ALT 18.0 IU/LALK PHOS 69.0 IU/LTOTAL PROTEIN 6.30 g/dLALBUMIN 3.80 g/dLTOTAL BILI 0.20 mg/dLCALCIUM 8.60 mg/dLeGFR >60 mL/min/1.73mSEDRATE 22.0 mm/hr 11/30/2015 2:18 PM WBC 12.5 RBC 4.56 HGB 13.80 g/dLHCT 40.50 %MCV 89.0 fLMCH 30.30 pgMCHC 34.10 g/dLRDW CV 13.70 %MPV 9.60 fLPLT 289 %NEUT 64.40 %%LYMP 25.40 %%MONO 6.90 %%EOS 2.50 %%BASO 0.60 %#NEUT 8.02 #LYMP 3.16 #MONO 0.86 #EOS 0.31 #BASO 0.08 TSH 2.120 uIU/mLT4 8.0 ug/dLANA Direct Negative [...] 2015 1:32PM Leukocytosis Dec 08 2015 5:36PM Payers Insurance Name Company Name Plan Name Plan Number Policy Number Quirino cy Group Number Start Date BCBS Bcbs [facility] [id number] 2014 [employer] Financial Assistance yub[employer] [facility] ancial [employer] 50 percent clinics June Early Detection Works [employer] Works [id number] [phone] Friday, August 17, 2012 History of Encounters Visit Date Visit Type Provider 11/30/2015 Office visit Kasi Colon DO 11/24/2015 Office visit Conrado Victor MD 05/13/2015 Office visit Magda Chen APRN 04/13/2015 Office visit Magda Chen APRN 03/23/2015 Office visit Conrado Victor MD 03/13/2015 [facility] Conrado Victor MD 03/02/2015 Office visit Conrado Victor MD 02/12/2015 Office visit Kasi Colon DO 09/09/2014 Office visit Kasi Colon DO 02/24/2014 Office visit Conrado Victor MD 12/30/2013 Office visit Conrado Victor MD 11/25/2013 Office visit Conrado Victor MD 11/14/2013 [facility] Conrado Victor MD 11/04/2013 Office [...]
--- OUTSIDE RECORDS SUMMARY | 2019-08-23 11:32 | XMS REPORT ---
Author Author Lindsey Colon Organization [facility] Address [address] [place], [place] [address] Care Team Providers Care Head Bellhop Captain Name Role Phone Kasi Colon PCP Unavailable JI ROSA PreferredProvider Unavailable Allergies and Adverse Reactions Name [...] mg) by subcutaneous route every 2 weeks pantoprazole 40 mg oral tablet,delayed release (DR/EC) 06/28/2016 take 1 tablet (40 mg) by oral route once daily for 30 days Lialda 1.2 gram oral tablet,delayed release (DR/EC) 08/01/2016 TAKE 4 TABS BY MOUTH DAILY WITH BREAKFAST. SWALLOW WHOLE; DO NOT BREAK, CHEW OR CRUSH. ADMINISTER WITH A MEAL. pseudoephedrine HCl 120 mg oral tablet extended release 7 take 1 tablet (120 mg) by oral route every 12 hours as needed Tri-Sprintec (28) 0.18/0.215/0.25 mg-35 mcg (28) oral tablet 03/2017 TAKE 1 TABLET BY MOUTH DAILY Name Start Date Expiration Date SIG Comments [...] 14 days phentermine 37.5 mg oral tablet 02/21/2017 03/23/2017 take 1 tablet (37.5 mg) by oral [...] tablets,dose pack 07/13/2010 09/23/2010 take as directed [id number]-lcxsqsfrc-RX 3.5-10,000-10 mg-unit-mg/mL opht halmic drops,suspension 07/13/2010 09/23/2010 instill 3 drops into affecte d eye(s) by ophthalmic route 3 times a day bupropion HCl 150 mg oral tablet extended release 24 hr 11/02/2010 take 1 tablet (150 mg) by [...] once daily for 30 days "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 grain 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" gentamicin 0.3 % ophthalmic drops 01/28/2016 [...] 06/2016 NATASHA (generalized anxiety disorder) Active 11/29 Vital Signs Date Time BP-Sys(mm[Hg] BP-Yesenia(mm[Hg]) HR(bpm) RR(rpm) Temp WT HT HC BMI BSA BMI Percentile O2 Sat(%) 03/14/2017 9:29:00 AM 128 mmHg 78 mmHg [...] rpm 99.6 F 193 lbs 65 in 32.1166 kg/m 2.0037 m 04/22/2009 9:09:00 AM 105 mmHg 72 mmHg 80 bpm 18 rpm 98.1 F 198 lbs 65 in 32.95 kg/m2 2.03 m2 Social History Name Description Comments Alcohol Current [...] 01/31/2017 12:00 AM Depo-Medrol 80mg Injection Reviewed 10/15/2012 [...] 12:00 AM Bicillin CR 1.2 [facility]#[id number] Clini c Reviewed 02/12/2015 12:00 AM COMPLETE [...] for screening mammogram Mar 14 2017 9:31AM Payers Insurance Name Company Name Plan Name Plan Number Policy Number Quirino cy Group Number [facility] Date [facility] [id number] 2014 [employer] Financial Assistance Big[employer] 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 Office visit Kasi Isaiah DO 10/24/2012 Office visit Kasi Isaiah DO 10/15/2012 Office visit Kasi Isaiah DO 06/21/2012 Office visit Kasi Isaiah DO 04/20/2012 Office visit Kasi Isaiah DO 01/11/2012 Office visit Kasi Isaiah DO 11/29/2011 Office visit Kasi Isaiah DO 09/30/2011 Office visit Kasi Isaiah DO 07/04/2011 Office visit Kasi Isaiah DO 05/24/2011 Office visit Kasi Isaiah DO 03/18/2011 Voided Kasi Isaaih DO 01/14/2011 Office visit Meenakshi Singh PA [...] Meenakshi Singh PA 04/07/2009 Office visit Jerilyn WEINBERG 03/03/2009 Office visit Kasi Colon DO 02/23/2009 Office visit Jitendra Kerns MD 02/18/2009 Surgery Jitendra Kerns MD 02/16/2009 Surgery Jitendra Kerns MD 02/06/2009 Surgery Jitendra Kerns MD 02/05/2009 Office visit Jitendra Kerns MD
--- OUTSIDE RECORDS SUMMARY | 2019-08-23 11:33 | XMS REPORT ---
Author Author Lindsey Colon Organization [facility] oup Address [address] [place], [place] [address] Care Team Providers Care Foam Charger Name Role Phone Kasi Colon PCP Unavailable [...] CHEW OR CRUSH. ADMINISTER WITH A MEAL. venlafaxine 37.5 mg oral tablet extended release 24hr 03/07/2016 take 1 tablet (37.5 mg) by oral route once daily in the morning at the same time each day with food for 1 week then 2 tablets daily Name Start Date Expiration Date SIG [...] tablets,dose pack 07/13/2010 09/23/2010 take as directed xbkrxxfc-sifksinfj-VN 3.5-10,000-10 mg-unit-mg/mL opht halmic drops,suspension 07/13/2010 09/23/2010 [...] once daily with a meal Dr. 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" gentamicin 0.3 % ophthalmic drops 01/28/2016 02/05/2016 [...] (50 mg) once a day Decreased Libido Problem List Description Status Onset Anxiety Disorder Active Depressive Disorder Active Colitis Active Abdominal Pain Active Colonic Polyps, Personal History of Active 2009 Ulcerative colitis Active 09/09/2014 Nicotine addiction Active 12/06/2015 Vital Signs Date Time BP-Sys(mm[Hg] BP-Yesenia(mm[Hg]) HR(bpm) RR(rpm) Temp WT HT HC BMI BSA BMI Percentile O2 Sat(%) 02/24/2016 10:00:00 AM 124 mmHg 72 mmHg [...] 12:00 AM Bicillin CR, 1.2 million units [facility]# 6079 3-600-10 Reviewed 11/30/2015 12:00 [...] Reviewed 01/14/2011 12:00 AM Bicillin CR 1.2 [facility]#[id number] Clini c Reviewed 02/12/2015 12:00 AM COMPLETE [...] 10:07AM Ulcerative Colitis Nov 24 2015 11:47AM Payers Insurance Name Company Name Plan Name Plan Number Policy Number Quirino cy Group Number Start Date BCBS [facility] [id number] 2014 [employer] Financial Assistance [employer] Fin ancial [employer] 50 percent clinics June Early Detection Works Early Detection Works [id number] Friday, August 17, 2012 History of Encounters Visit Date Visit Type Provider 02/24/2016 Office visit Kasi Colon DO 11/30/2015 Office visit Kasi Colon DO 11/24/2015 Office visit Conrado Victor MD 05/13/2015 Office visit Magda Gustavo SEWING MACHINE ATTACHMENT TESTER 04/13/2015 Office visit Magda Chen SEWING MACHINE ATTACHMENT TESTER 03/23/2015 Office visit Conrado Victor MD 03/13/2015 Hospital Conrado Victor MD 03/02/2015 Office visit Conrado Victor MD 02/12/2015 Office visit Kasi Colon DO 09/09/2014 Office visit Kasi Colon DO 02/24/2014 Office visit Conrado Victor MD 12/30/2013 Office visit Conrado Victor MD 11/25/2013 Office visit Conrado Victor MD 11/14/2013 [facility] Conrado Victor MD 11/04/2013 Office visit Conrado Victor MD 11/04/2013 Office visit Kasi Isaiah DO 10/21/2013 Office visit Kb Perry MD 10/01/2013 Office visit Kb Perry MD 09/10/2013 Office visit Kasi Isaiah DO 07/08/2013 Office visit Magda Chen SEWING MACHINE ATTACHMENT TESTER 02/18/2013 Office visit Kasi Isaiah DO 10/24/2012 Office visit Kasi Isaiah DO 10/15/2012 Office visit Kasi Isaiah DO 06/21/2012 Office visit Kasi Isaiah DO 04/20/2012 Office visit Kasi Isaiah DO 01/11/2012 Office visit Kasi Isaiah DO 11/29/2011 Office visit Kasi Isaiah DO 09/30/2011 Office visit Kasi Isaiah DO 07/04/2011 Office visit Kasi Isaiah DO 05/24/2011 Office visit Kasi Siaiah DO 03/18/2011 Voided Kasi Isaiah DO 01/14/2011 Office visit Meenakshi WEINBERG 11/02/2010 Office visit Kasi Isaiah DO 09/23/2010 Office visit Kasi Isaiah DO 07/21/2010 Office visit Kasi Isaiah DO 07/13/2010 Office visit Kasi Isaiah DO 05/25/2010 Office visit Meenakshi WEINBERG 04/05/2010 Office visit Meenakshi WEINBERG 02/17/2010 Office visit Meenakshi WEINBERG 01/11/2010 Office visit Meenakshi WEINBERG 11/25/2009 Office visit Kasi Isaiah DO 10/27/2009 Office visit Kasi Colon DO [...]
--- OUTSIDE RECORDS SUMMARY | 2019-08-23 11:33 | XMS REPORT ---
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] 03/23/2015 Office visit Conrado Victor MD 03/13/2015 [facility] Conrado Victor MD 03/02/2015 Office visit Conrado Victor MD 02/12/2015 Office visit Kasi Isaiah DO 09/09/2014 Office visit Kasi Colon DO 02/24/2014 Office visit Conrado Victor MD 12/30/2013 Office visit Conrado Victor MD 11/25/2013 Office visit Conrado Victor MD 11/14/2013 [facility] Conrado Victor MD 11/04/2013 Office [...]
--- OUTSIDE RECORDS SUMMARY | 2019-08-23 11:34 | XMS REPORT ---
Author Author Lindsey ROSA Organization [facility] oup Address [address] [place], [place] [address] Care Team Providers Care Outside Plant Engineer Name Role Phone JI ROSA PCP Unavailable JI ROSA PreferredProvider Unavailable Allergies [...] oral route every 12 hours as needed fluticasone 50 mcg/actuation nasal spray,suspension 01/31/2017 inhale 1 spray (50 mcg) in each nostril by intranasal route 2 times per day Bactrim DS 800-160 mg oral tablet 01/31/2017 02/14/2017 take 1 tablet by oral route every 12 hours for 14 days cetirizine 10 mg oral tablet 01/31/2017 sirena e 2 tablets (20 mg) by [...] needed for anxiety must last 30 days Discontinued Name Start Date Discontinued [...] tablets,dose pack 07/13/2010 09/23/2010 take as directed nojpknxl-arxtacbgx-KZ 3.5-10,000-10 mg-unit-mg/mL opht halmic drops,suspension 07/13/2010 09/23/2010 [...] once daily for 30 days "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" gentamicin 0.3 % ophthalmic drops 01/28/2016 [...] HC BMI BSA BMI Percentile O2 Sat(%) 02/01/2017 6:28:00 AM 118 mmHg 78 mmHg [...] Bicillin CR, 1.2 million units [facility]# 6079 3-600-10 Reviewed 11/30/2015 12:00 [...] 12:00 AM Bicillin CR 1.2 [facility]#[id number] Clini c Reviewed 02/12/2015 12:00 AM COMPLETE [...] seasonal allergic rhinitis Feb 01 2017 6:31AM Payers Insurance Name Company Name Plan Name Plan Number Policy Number Quirino cy Group Number Start Date BCBS Bc Chayo Davidson [id number] Yonis 2014 [employer] Financial Assistance [employer] [facility] 50 percent clinics June Early Detection Works Early Detection Works [id number] [phone] Friday, August 17, 2012 History of Encounters Visit Date Visit Type Provider 01/31/2017 Office visit JI WEINBERG 11/28/2016 Office [...] 03/23/2015 Office visit Ji Victor MD 03/13/2015 [facility] Ji Victor MD 03/02/2015 Office visit Ji Victor MD 02/12/2015 Office visit Kasi Colon DO 09/09/2014 Office visit Kasi Colon DO 02/24/2014 Office visit Ji Victor MD 12/30/2013 Office visit Ji Victor MD 11/25/2013 Office visit Ji Victor MD 11/14/2013 [facility] Ji Victor MD 11/04/2013 Office visit Ji Victor MD 11/04/2013 Office visit Kasi Colon DO 10/21/2013 Office visit Kb Perry MD 10/01/2013 Office visit Kb Perry MD 09/10/2013 Office visit Kasi Colon DO 07/08/2013 Office visit Magda Chen MOTOR VEHICLE LECTURER 02/18/2013 Office visit Kasi Colon DO 10/24/2012 Office visit Kasi Colon DO 10/15/2012 Office visit Kasi Colon DO 06/21/2012 Office visit Kasi Colon DO 04/20/2012 Office visit Kasi Isaiah DO 01/11/2012 Office visit Kasi Isaiah DO 11/29/2011 Office visit Kasi Isaiah DO 09/30/2011 Office visit Kasi Leongte DO 07/04/2011 Office visit Kasi Isaiah DO 05/24/2011 Office visit Kasi Colon DO 03/18/2011 Voided Kasi Isaiah DO 01/14/2011 Office visit Meenakshi WEINBERG 11/02/2010 Office visit Kasi Colon DO 09/23/2010 Office visit Kasi Leongte DO [...]
--- OUTSIDE RECORDS SUMMARY | 2019-08-23 11:34 | XMS REPORT ---
Author Author Lindsey Colon Organization [facility] oup Address [address] [place], [place] [phone] Care Team Providers Care Geophysical Engineer Name Role Phone Kasi Colon PCP Unavailable [...] BY MOUTH ONCE A DAY Bactrim DS oral tablet 800-160 mg 10/30/2014 take 1 tablet by oral route every 12 hours clotrimazole topical cream 1 % 12/08/2014 a pply to the affected and surrounding areas of skin by topical route 2 times per day in the morning and evening Name Start Date Expiration Date SIG Comments [...] route every 12 hours for 7 days zolpidem oral tablet 5 mg 10/22/2014 11/21/2014 take 1 tablet (5 mg) by oral route once daily at bedtime for 30 days Discontinued Name Start Date [...] 4 mg 07/13/2010 09/23/2010 take as directed Cjwyydto-Jmgysheav-NC Ophthalmic Drops, Suspension 3.5 -10,000-10 mg-unit-mg/mL 07/13/2010 [...] cy Group Number Start Date Bcbs Bcbs [facility] [id number] 2014 [employer] Financial Assistance [employer] [facility] ancial [employer] 50 percent clinics June Early Detection Works Early Detection Works [id number] [phone] Friday, August 17, 2012 History of [...] Colon DO 07/08/2013 Office visit Magda Chen MIRROR FINISHING MACHINE OPERATOR 02/18/2013 Office visit Kasi Colon DO 10/24/2012 [...] Kasi Colon DO 01/14/2011 Office visit Meenakshi Singh PA [...] visit Kasi Colon DO 08/27/2009 Voided Meenakshi Singh PA 08/27/2009 Nurse visit Jerilyn WEINBERG 07/21/2009 Office visit Jerilyn WEINBERG 04/22/2009 Office visit Meenakshi WEINBERG 04/07/2009 Office visit Jerilyn WEINBERG 03/03/2009 Office visit Kasi Colon DO 02/23/2009 Office visit Jitendra Kerns MD 02/18/2009 Surgery Jitendra Kerns MD 02/16/2009 Surgery Jitendra Kerns MD 02/06/2009 Surgery Jitendra Kerns MD 02/05/2009 Office visit Jitendra Kerns MD
--- OUTSIDE RECORDS SUMMARY | 2019-08-23 11:35 | XMS REPORT ---
Author Author Lindsey Chen Organization [facility] ou Address [address] [place], [place] [address] Care Team Providers Care Electronic Specialist Name Role Phone Magda Chen PCP Unavailable [...] daily before a meal for 30 days pantoprazole 40 mg oral [...] by topical route 2 times per day Zithromax Z-Jona 250 mg oral tablet 05/19/2015 05/24/2015 take 2 tablets (500 mg) by oral route once daily for 1 day then 1 tablet (250 mg) by oral route once daily for 4 days Name Start Date Expiration Date SIG [...] every 12 hours for 7 days zolpidem 5 mg oral tablet 04/14/2015 05/14/2015 take 1 .5 tablets by oral route once a day (at bedtime) for 30 days Discontinued Name Start Date [...] tablets,dose pack 07/13/2010 09/23/2010 take as directed qncdcdrx-lsrvkrheg-FB 3.5-10,000-10 mg-unit-mg/mL opht halmic drops,suspension 07/13/2010 09/23/2010 [...] [facility]# 6079 3-600-10 Reviewed 07/04/2011 12:00 AM CYTOPATH [...] AM Bicillin CR 1.2 [facility]#[id number] Clini c Reviewed 02/12/2015 12:00 AM COMPLETE [...] Number Quirino Group Number Start Date [facility] [id number] 2014 [place] [facility] Financial Assistance [place] [employer] [facility] 50 percent [facility] June Early Detection Works Early Detection Works [id number] [phone] Friday, August 17, 2012 History of [...] 11/25/2013 Office visit Conrado Victor MD 11/14/2013 [facility] Conrado Victor MD 11/04/2013 Office visit Conrado Victor MD 11/04/2013 Office visit Kasi Colon DO 10/21/2013 Office visit Kb Perry MD 10/01/2013 Office visit Kb Perry MD 09/10/2013 Office visit Kasi Colon DO 07/08/2013 Office visit Magda Chen WOODWORKER 02/18/2013 Office visit Kasi Colon DO 10/24/2012 [...]
--- OUTSIDE RECORDS SUMMARY | 2019-08-23 11:35 | XMS REPORT ---
Author Author Lindsey ROSA Organization [facility] oup Address [address] [place], [place] [address] Care Team Providers Care Church Supervisor Name Role Phone JI ROSA PCP Unavailable [...] oral route every 12 hours as needed Trintellix 10 mg oral tablet 11/01/2016 12/01/2016 sirena e 1 tablet (10 mg) by oral route once daily at the same time each day for 30 days Xanax 0.5 mg oral tablet 11/01/2016 12/01/2016 1/2 to 1 twice daily as needed for anxiety must last 30 days Name Start Date Expiration Date [...] tablets,dose pack 07/13/2010 09/23/2010 take as directed kmbtlexl-rlyuivosa-CQ 3.5-10,000-10 mg-unit-mg/mL opht halmic drops,suspension 07/13/2010 09/23/2010 [...] once daily for 30 days "did not nut picker" gentamicin 0.3 % ophthalmic drops 01/28/2016 [...] colitis Active 09/09/2014 Nicotine addiction Active 12/06/2015 Medication management Active 11/03/2016 Decreased libido without sexual dysfunction Active 11/03/2016 Mood swings Active 11/03/2016 Morbid obesity due to excess calories Active Environmental and seasonal allergies Active 06/2016 Vital Signs Date Time BP-Sys(mm[Hg] BP-Yesenia(mm[Hg]) HR(bpm) RR(rpm) Temp WT HT HC BMI BSA BMI Percentile O2 Sat(%) 11/01/2016 11:17:00 AM 132 mmHg 84 mmHg [...] 12:00 AM Bicillin CR, 1.2 million units [facility]# 6079 3-600-10 Reviewed 11/30/2015 12:00 AM [...] Reviewed 01/14/2011 12:00 AM Bicillin CR 1.2 [facility]#[id number] Clini c Reviewed 02/12/2015 12:00 AM COMPLETE CBC W/AUTO DIFF WBC Reviewed 02/12/2015 12:00 AM ASSAY OF IRON Reviewed 02/12/2015 12:00 AM IRON BINDING TEST Reviewed 02/12/2015 12:00 AM ASSAY OF FERRITIN Reviewed Results Summary Date and Description Results 04/22/2009 11:22 AM Lrg [...] calories 11/03/2016 Environmental and seasonal allergies 11/03/2016 Pharyngitis, Acute Jan 14 2011 8:02AM Cerumen [...] and seasonal allergies Nov 01 2016 11:17AM Payers Insurance Name Company Name Plan Name Plan Number Policy Number Quirino cy Group Number Start Date [facility] [id number] 2014 [employer] Financial Assistance [employer] [facility] June Early Detection Works Early Detection Works [id number] [phone] Friday, August 17, 2012 History of Encounters Visit Date Visit Type Provider 11/01/2016 Office visit JI WEINBERG 08/16/2016 Office visit Kasi Isaiah DO 07/04/2016 Office visit Kasi Isaiah DO 06/15/2016 Office visit Kasi Isaiah DO 05/02/2016 Office visit Kasi Isaiah DO 02/24/2016 Office visit Kasi Isaiah DO 11/30/2015 Office visit Kasi Isaiah DO 11/24/2015 Office visit Ji Victor MD 05/13/2015 Office visit Magda Chen PHOTO JOURNALIST 04/13/2015 Office visit Magda Chen PHOTO JOURNALIST 03/23/2015 Office visit Ji Victor MD 03/13/2015 Hospital Ji Victor MD 03/02/2015 Office visit Ji Victor MD 02/12/2015 Office visit Kasi Isaiah DO 09/09/2014 Office visit Kasi Isaiah DO 02/24/2014 Office visit Ji Victor MD 12/30/2013 Office visit Ji Victor MD 11/25/2013 Office visit Ji Victor MD 11/14/2013 [facility] Ji Victor MD 11/04/2013 Office visit Ji Victor MD 11/04/2013 Office visit Kasi Isaiah DO 10/21/2013 Office visit Kb Perry MD 10/01/2013 Office visit Kb Perry MD 09/10/2013 Office visit Kasi Isaiah DO 07/08/2013 Office visit Magda Chen PHOTO JOURNALIST 02/18/2013 Office visit Kasi Isaiah DO 10/24/2012 [...]
--- OUTSIDE RECORDS SUMMARY | 2019-08-23 11:36 | XMS REPORT ---
Author Author Lindsey Colon Organization [facility] oup Address [address] [place], [place] [phone] Care Team Providers Care Deli Worker Name Role Phone Kasi Colon PCP Unavailable [...] CHEW OR CRUSH. ADMINISTER WITH A MEAL. 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 50 percent [facility] June Early Detection Works Early Detection Works [id number] [phone] Friday, August 17, 2012 History of Encounters Visit Date Visit Type Provider 11/30/2015 Office visit Kasi Colon DO 11/24/2015 Office visit Conrado Victor MD 05/13/2015 Office visit Magda Chen APRN 04/13/2015 Office visit Magda Chen APRN 03/23/2015 Office visit Conrado Victor MD 03/13/2015 [facility] Conrado Victor MD 03/02/2015 Office visit Conrado Victor MD 02/12/2015 Office visit Kasi Colon DO 09/09/2014 Office visit Kasi Colon DO 02/24/2014 Office visit Conrado Victor MD 12/30/2013 Office visit Conrado Victor MD 11/25/2013 Office visit Conrado Victor MD 11/14/2013 [facility] Conrado Victor MD 11/04/2013 Office visit [...] Kasi Colon DO 01/11/2012 Office visit Kasi Leongte DO 11/29/2011 Office visit Kasi Isaiah DO 09/30/2011 Office visit Kasi Isaiah DO 07/04/2011 Office visit Kasi Leongte DO 05/24/2011 Office visit Kasi Colon DO 03/18/2011 Voided Kasi Isaiah DO 01/14/2011 Office visit Meenakshi WEINBERG 11/02/2010 Office visit Kasi Colon DO 09/23/2010 Office visit aKsi Colon DO 07/21/2010 Office visit Kasi Leongte DO [...]
--- OUTSIDE RECORDS SUMMARY | 2019-08-23 11:36 | XMS REPORT ---
Author Author Lindsey ROSA Organization [facility] Physicians ou Address [address] [place], [place] [address] Care Team Providers Care Steam Fitter Helper Name Role Phone JI ROSA PCP JI ROSA PreferredProvider Allergies and Adverse [...] WHOLE; DO NOT BREAK, CHEW OR CRUSH. Vyvanse 30 mg oral capsule 09/12/2017 10/12/2017 take 1 capsule (30 mg) by oral route once daily in the morning for 30 days Zoloft 100 mg oral tablet 09/12/2017 10/12/2017 take 1 tablet (100 mg) by oral route once daily for 30 days Name Start Date Expiration [...] tablets,dose pack 07/13/2010 09/23/2010 take as directed rdpjqaoq-bplwyqspk-ZC 3.5-10,000-10 mg-unit-mg/mL opht halmic drops,suspension 07/13/2010 09/23/2010 [...] HC BMI BSA BMI Percentile O2 Sat(%) 09/12/2017 4:19:00 PM 104 mmHg 70 mmHg [...] Bicillin CR 1.2 [facility]#[id number] Clini c Reviewed 02/12/2015 12:00 AM COMPLETE [...] 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 [id number] N/ A [employer] Financial Assistance [place] [employer] ancial [employer] 50 percent clinics June Early Detection Works Early Detection Works [id number] [phone] Friday, August 17, 2012 BCBS Bcbs [facility] [id number] We May 28, 2014 History of Encounters Visit Date Visit Type Provider 09/12/2017 Office visit JI WEINBERG 07/18/2017 Office [...] Victor MD 05/13/2015 Office visit Magda Chen ANALYST PROGRAMMER 04/13/2015 Office visit Magda Chen ANALYST PROGRAMMER 03/23/2015 Office visit Ji Victor MD 03/13/2015 [facility] Ji Victor MD 03/02/2015 Office visit Ji Victor MD 02/12/2015 Office visit Kasi Isaiah DO 09/09/2014 Office visit Kasi Isaiah DO 02/24/2014 Office visit Ji Victor MD 12/30/2013 Office visit Ji Victor MD 11/25/2013 Office visit Ji Victor MD 11/14/2013 [facility] Ji Victor MD 11/04/2013 Office visit Ji Victor MD 11/04/2013 Office visit Kasi Isaiah DO 10/21/2013 Office visit Kb Perry MD 10/01/2013 Office visit Kb Perry MD 09/10/2013 Office visit Kasi Isaiah DO 07/08/2013 Office visit Magda Chen ANALYST PROGRAMMER 02/18/2013 Office visit Kasi Isaiah DO 10/24/2012 [...]
--- OUTSIDE RECORDS SUMMARY | 2019-08-23 11:37 | XMS REPORT ---
Author Author Lindsey Chen Organization [facility] Phys[facility] ou Address [address] [place], [place] [address] Care Team Providers Care Crane Service Technician Name Role Phone Magda Chen PCP Unavailable [...] daily before a meal for 30 days Name Start Date Expiration [...] 7 days zolpidem 5 mg oral tablet 02/12/2015 03/14/2015 take 1 .5 tablets by oral route once a day (at bedtime) for 30 days No rx given Discontinued Name Start Date Discontinued Date SIG [...] tablets,dose pack 07/13/2010 09/23/2010 take as directed sfcubkol-aqpayowkl-HL 3.5-10,000-10 mg-unit-mg/mL opht halmic drops,suspension 07/13/2010 09/23/2010 [...] HC BMI BSA BMI Percentile O2 Sat(%) 04/13/2015 3:10:00 PM 122 mmHg 62 mmHg [...] [facility]# 6079 3-600-10 Reviewed 07/04/2011 12:00 AM CYTOPATH [...] Bicillin CR 1.2 [facility]#[id number] Clini c Reviewed 02/12/2015 12:00 AM COMPLETE [...] unspecified pharyngitis type Apr 13 2015 3:13PM Payers Insurance Name Company Name Plan Name Plan Number Policy Number Quirino cy Group Number Start Date Bcbs Bcbs [facility] [id number] 2014 [employer] Financial Assistance [employer] [facility] 50 percent [facility] June Early Detection Works Early Detection Works [id number] [phone] Friday, August 17, 2012 History of Encounters Visit Date Visit Type Provider 04/13/2015 Office visit Magda Chen APRN 03/23/2015 Office visit Conrado Victor MD 03/13/2015 [facility] Conrado Victor MD 03/02/2015 Office visit Conrado Victor MD 02/12/2015 Office visit Kasi Colon DO 09/09/2014 Office visit Kasi Colon DO 02/24/2014 Office visit Conrado Victor MD 12/30/2013 Office visit Conrado Victor MD 11/25/2013 Office visit Conrado Victor MD 11/14/2013 [facility] Conrado Victor MD 11/04/2013 Office visit Conrado [...] Kasi Isaiah DO 11/29/2011 Office visit Kasi Isaiha DO 09/30/2011 Office visit Kasi Isaiah DO [...]
--- OUTSIDE RECORDS SUMMARY | 2019-08-23 11:37 | XMS REPORT ---
Author Lindsey Merlos Organization [facility] oup Address [address] [place], [place] [address] Care Team Providers Care Carton Forming Machine Tender Name Role Phone Kasi Colon PCP [...] OR CRUSH. ADMINISTER WITH A MEAL. venlafaxine 150 mg oral capsule,extended release 24hr 03/29/2016 09/25/2016 take 1 capsule (150 mg) by oral [...] tablets,dose pack 07/13/2010 09/23/2010 take as directed ithhfjbb-ljhbkzcjt-VI 3.5-10,000-10 mg-unit-mg/mL opht halmic drops,suspension 07/13/2010 09/23/2010 [...] AM Bicillin CR, 1.2 million units [facility]# 6079 3-600-10 Reviewed 11/30/2015 12:00 AM [...] 01/14/2011 12:00 AM Bicillin CR 1.2 [facility]#[id number] Clini c Reviewed 02/12/2015 12:00 AM COMPLETE [...] cy Group Number Start Date BCBS Bcbs [facility] [id number] 2014 [place] Financial Assistance [facility] [facility] [place] 50 percent clinics June Early Detection Works Early Detection Works [id number] [phone] Friday, August 17, 2012 History of Encounters Visit Date Visit Type Provider 02/24/2016 Office visit Kasi Colon DO 11/30/2015 Office visit Kasi Colon DO 11/24/2015 Office visit Conrado Victor MD 05/13/2015 Office visit Magda Chen APRN 04/13/2015 Office visit Magda Chen APRN 03/23/2015 Office visit Conrado Victor MD 03/13/2015 [facility] Conrado Victor MD 03/02/2015 Office visit Conrado Victor MD 02/12/2015 Office visit Kasi Colon DO 09/09/2014 Office visit Kasi Colon DO 02/24/2014 Office visit Conrado Victor MD 12/30/2013 Office visit Conrado Victor MD 11/25/2013 Office visit Conrado Victor MD 11/14/2013 [facility] Conrado Victor MD 11/04/2013 Office visit [...] Kasi Colon DO 09/30/2011 Office visit Kasi Isaiah DO 07/04/2011 Office visit Kasi Leongte DO 05/24/2011 Office visit Kasi Colon DO 03/18/2011 Voided Kasi Isaiah DO 01/14/2011 Office visit Meenakshi Singh PA 11/02/2010 Office visit Kasi Colon DO 09/23/2010 Office visit Kasi Colon DO 07/21/2010 Office visit Kasi Leongte DO 07/13/2010 Office visit Kasi Colon DO 05/25/2010 Office visit Meenakshi Singh PA 04/05/2010 Office visit Meenakshi Singh PA 02/17/2010 Office visit Meenakshi WEINBERG 01/11/2010 Office [...]
--- OUTSIDE RECORDS SUMMARY | 2019-08-23 11:38 | XMS REPORT ---
Author Lindsey Merlos Organization [facility] oup Address [address] [place], [place] [address] Care Team Providers Care Railroad Car Inspector Name Role Phone Kasi Colon PCP Unavailable [...] mg) by subcutaneous route every 2 weeks Levaquin 500 mg oral tablet 05/02/2016 take 1 tablet (500 mg) by oral route once daily fexofenadine-pseudoephedrine 60-120 mg oral tablet ext ended release 12 hr 05/02/2016 take 1 tablet by oral route 2 times per day as needed Tri-Sprintec (28) 0.18/0.215/0.25 mg-35 mcg (28) oral tablet TAKE 1 TABLET BY MOUTH DAILY venlafaxine 150 mg oral capsule,extended release 24hr 05/02/2016 10/29/2016 take 1 capsule (150 mg) by oral [...] tablets,dose pack 07/13/2010 09/23/2010 take as directed dfkxggxn-oszojddwg-YR 3.5-10,000-10 mg-unit-mg/mL opht halmic drops,suspension 07/13/2010 09/23/2010 [...] once daily for 30 days "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 not pick up driver" gentamicin 0.3 % ophthalmic drops 01/28/2016 02/05/2016 instill 2 drops into affected eye(s) by ophthalmic route 4 times a day sertraline 50 mg oral tablet 02/24/2016 03/07/2016 sierna e 0.5 tablet (25 mg) by oral [...] HC BMI BSA BMI Percentile O2 Sat(%) 05/02/2016 2:41:00 PM 120 mmHg 72 mmHg [...] 12:00 AM Bicillin CR, 1.2 million units [facility]# 6079 3-600-10 Reviewed 11/30/2015 12:00 [...] Reviewed 01/14/2011 12:00 AM Bicillin CR 1.2 [facility]#[id number] Clini c Reviewed 02/12/2015 12:00 AM COMPLETE [...] Acute Jul 13 2010 10:36AM Conjunctivitis, Bilateral Feb 8 2011 10:36AM Routine gynecological examination Jul 21 2010 [...] recurrence not specified May 02 2016 2:43PM Payers Insurance Name Company Name Plan Name Plan Number Policy Number Quirino cy Group Number Start Date [facility] [id number] 2014 [employer] Financial Assistance [employer] [facility] 50 percent [facility] June Early Detection Works Early Detection Works [id number] [phone] Friday, August 17, 2012 History of Encounters Visit Date Visit Type Provider 05/02/2016 Office visit Kasi Colon DO 02/24/2016 Office visit Kasi Colon DO 11/30/2015 Office visit Kasi Colon DO 11/24/2015 Office visit Conrado Victor MD 05/13/2015 Office visit Magda Chen APRN 04/13/2015 Office visit Magda Chen APRN 03/23/2015 Office visit Conrado Victor MD 03/13/2015 [facility] Conrado Vcitor MD 03/02/2015 Office visit Conrado Victor MD [...] Voided Kasi Isaiah DO 01/14/2011 Office visit Meenakhsi Singh PA 11/02/2010 Office visit Kasi Isaiah [...]
--- OUTSIDE RECORDS SUMMARY | 2019-08-23 11:39 | XMS REPORT ---
Author Author Lindsey ROSA Organization [facility] oup Address [address] [place], [place] [address] Care Team Providers Care Documentation Spec Name Role Phone JI ROSA PCP JI [...] pantoprazole 40 mg oral tablet,delayed release (DR/EC) 07/20/2017 take 1 tablet (40 mg) by oral [...] tablets,dose pack 07/13/2010 09/23/2010 take as directed nswepmnj-qhrbnmywv-QE 3.5-10,000-10 mg-unit-mg/mL opht halmic drops,suspension 07/13/2010 09/23/2010 [...] HC BMI BSA BMI Percentile O2 Sat(%) 07/18/2017 10:07:00 AM 118 mmHg 82 mmHg 82 bpm 18 rpm 97.9 F 206 lbs 64 in 35.36 kg/m2 2.05 m2 98 % 05/08/2017 9:35:00 AM 200 [...] 12:00 AM Bicillin CR 1.2 [facility]#[id number] Clini c Reviewed 02/12/2015 12:00 AM COMPLETE [...] serous otitis media, recurrence not specified n 2016 9:46AM Eustachian tube dysfunction, right [...] 10:07AM Head congestion Jul 18 2017 10:07AM Payers Insurance Name Company Name Plan Name Plan Number Policy Number Quirino cy Group Number Start Date BCBS Bcbs [facility] [id number] N/ A [employer] Financial Assistance [employer] [facility] 50 percent clinics June Early Detection Works Early Detection Works [id number] [phone] Friday, August 17, 2012 BCBS Bcbs [facility] [id number] May 28, 2014 History of Encounters Visit Date Visit Type Provider 07/18/2017 Office visit JI WEINBERG 03/14/2017 Office visit Kasi Colon DO 01/31/2017 Office visit JI WEINBERG 11/28/2016 Office visit JI WEINBERG 11/01/2016 Office visit JI WEINBERG 08/16/2016 Office visit Kasi Colon DO 07/04/2016 Office visit Kasi Colon DO 06/15/2016 Office visit Kasi Colon DO 05/02/2016 Office visit Kasi Colon DO 02/24/2016 Office visit Kais Colon DO 11/30/2015 Office visit Kasi Isaiah DO 11/24/2015 Office visit Ji Victor MD 05/13/2015 Office visit Magda Chen ORDER MANAGER 04/13/2015 Office visit Magda Chen ORDER MANAGER 03/23/2015 Office visit Ji Victor MD 03/13/2015 [facility] Ji Victor MD 03/02/2015 Office visit Ji Victor MD 02/12/2015 Office visit Kasi Isaiah DO 09/09/2014 Office visit Kasi Isaiah DO 02/24/2014 Office visit Ji Victor MD 12/30/2013 Office visit Ji Victor MD 11/25/2013 Office visit Ji Victor MD 11/14/2013 [facility] Ji Victor MD 11/04/2013 Office visit Ji Victor MD 11/04/2013 Office visit Kasi Isaiah DO 10/21/2013 Office visit Kb Perry MD 10/01/2013 Office visit Kb Perry MD 09/10/2013 Office visit Kasi Isaiah DO 07/08/2013 Office visit Magda Chen ORDER MANAGER 02/18/2013 Office visit Kasi Isaiah DO [...]
--- OUTSIDE RECORDS SUMMARY | 2019-08-23 11:39 | XMS REPORT ---
Author Author Lindsey Colon Organization [facility] o[facility] Address [address] [place], [place] [address] Care Team Providers Care Air Pollution Control Engineer Name Role Phone Kasi Colon PCP [...] oral route every 12 hours as needed phentermine 37.5 mg oral tablet 02/21/2017 03/23/2017 take 1 tablet (37.5 mg) by oral route once daily before breakfast for 30 days Tri-Sprintec (28) 0.18/0.215/0.25 mg-35 mcg (28) oral [...] route every 12 hours for 14 days Discontinued Name Start Date Discontinued Date [...] tablets,dose pack 07/13/2010 09/23/2010 take as directed hcwtalxh-texgyiljk-OU 3.5-10,000-10 mg-unit-mg/mL opht halmic drops,suspension 07/13/2010 09/23/2010 [...] 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" gentamicin 0.3 % ophthalmic drops 01/28/2016 02/05/2016 [...] AM Bicillin CR, 1.2 million units [facility]# 6079 3-600-10 Reviewed 11/30/2015 12:00 AM [...] 01/14/2011 12:00 AM Bicillin CR 1.2 [facility]#[id number] Clini c Reviewed 02/12/2015 12:00 AM COMPLETE [...] Quirino cy Group Number Start Date BCBS [facility] [id number] 2014 [employer] Financial Assistance [employer] [facility] 50 percent clinics June Early Detection Works Early Detection Works [phone] Friday, August 17, 2012 History of [...] Isaiah DO 07/08/2013 Office visit Magda Chen MACHINE ACCOUNTANT 02/18/2013 Office visit Kasi Isaiah DO 10/24/2012 [...]
--- OUTSIDE RECORDS SUMMARY | 2019-08-23 11:40 | XMS REPORT ---
Author Author Lindsey Colon Organization [facility] oup Address [address] [place], [place] [address] Care Team Providers Care Manager Asset Management Name Role Phone Kasi Colon PCP Unavailable Allergies and Adverse Reactions Name Reaction Notes NO KNOWN DRUG ALLERGIES Plan of Treatment Planned Activity Comments Planned Date Planned Time Plan/Goal METABOLIC PANEL TOTAL CA 05/13/2015 12:00 AM COMPLETE CBC W/AUTO DIFF WBC 11/30/2015 12:00 AM COMPREHEN METABOLIC PANEL 07/04/2011 12:00 [...] 10/03 TAKE 1 TABLET BY MOUTH DAILY metoclopramide HCl 10 mg oral tablet 11/24/2015 12/24/2015 take 1 tablet by oral route 3 times a day (before meals) for 30 days Name Start Date Expiration [...] oral route once daily for 4 days Discontinued Name Start Date Discontinued Date [...] tablets,dose pack 07/13/2010 09/23/2010 take as directed xkojspvb-rfrauuizw-MZ 3.5-10,000-10 mg-unit-mg/mL opht halmic drops,suspension 07/13/2010 09/23/2010 [...] once daily for 30 days "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 not rock picker" Problem List Description Status Onset Anxiety disorder [...] [facility]# 6079 3-600-10 Reviewed 11/24/2015 12:[address] ABD & PELV W/CONTRAST Returned 11/24/2015 12:00 AM COMPLETE CBC W/AUTO DIFF WBC Returned 11/24/2015 12:00 AM COMPREHEN METABOLIC PANEL Returned 11/24/2015 12:00 AM RBC SED RATE AUTOMATED Returned 11/30/2015 12:00 AM COMPLETE CBC W/AUTO DIFF WBC Returned 11/30/2015 12:00 AM ASSAY THYROID STIM HORMONE [...] Bicillin CR 1.2 [facility]#[id number] Clini c Reviewed 02/12/2015 12:00 AM COMPLETE [...] for screening mammogram Nov 30 2015 1:32PM Payers Insurance Name Company Name Plan Name Plan Number Policy Number Quirino cy Group Number Start Date BCBS Bcbs [facility] [id number] 2014 [employer] Financial Assistance [facility] 50 percent [facility] June Early Detection Works Early Detection Works [id number] [phone] Friday, August 17, 2012 History of Encounters Visit Date Visit Type Provider 11/30/2015 Office visit Kasi Colon DO 11/24/2015 Office visit Conrado Victor MD 05/13/2015 Office visit Magda Chen COTTON GINNER 04/13/2015 Office visit Magda Chen COTTON GINNER 03/23/2015 Office visit Conrado Victor MD 03/13/2015 Hospital Conrado Victor MD 03/02/2015 Office visit Conrado Victor MD 02/12/2015 Office visit Kasi Colno DO 09/09/2014 Office visit Kasi Colon DO 02/24/2014 Office visit Conrado Victor MD 12/30/2013 Office visit Conrado Victor MD 11/25/2013 Office visit Conrado Victor MD 11/14/2013 [facility] Conrado Victor MD 11/04/2013 Office visit Conrado Victor MD 11/04/2013 Office visit Kasi Colon DO 10/21/2013 Office visit Kb Perry MD 10/01/2013 Office visit Kb Perry MD 09/10/2013 Office visit Kasi Colon DO 07/08/2013 Office visit Magda Chen COTTON GINNER 02/18/2013 Office visit Kasi Isaiah DO 10/24/2012 [...]
--- OUTSIDE RECORDS SUMMARY | 2019-08-23 11:40 | XMS REPORT ---
Author Author Lindsey Colon Organization [facility] oup Address [address] [place], [place] [address] Care Team Providers Care Auto Claim Representative Name Role Phone Kasi Colon PCP Unavailable [...] route every 12 hours for 5 days Name Start Date Expiration [...] tablets,dose pack 07/13/2010 09/23/2010 take as directed lxlhkvir-kbnjzfqcm-CG 3.5-10,000-10 mg-unit-mg/mL opht halmic drops,suspension 07/13/2010 09/23/2010 [...] once daily for 30 days "did not package pick up" Problem List Description Status Onset Anxiety disorder [...] AM Bicillin CR, 1.2 million units [facility]# 6079 3-600-10 Reviewed 11/24/2015 12:00 [...] 01/14/2011 12:00 AM Bicillin CR 1.2 [facility]#[id number] Clini c Reviewed 02/12/2015 12:00 AM COMPLETE [...] Quirino cy Group Number Start Date BCBS [facility] [id number] We 2014 [employer] Financial Assistance [employer] [facility] 50 percent [facility] June Early Detection Works Early Detection Works [phone] Friday, August 17, 2012 History of Encounters Visit Date Visit Type Provider 11/30/2015 Office visit Kasi Colon DO 11/24/2015 Office visit Conrado Victor MD 05/13/2015 Office visit Magda Chen APRN 04/13/2015 Office visit Magda Chen APRN 03/23/2015 Office visit Conrado Victor MD 03/13/2015 [facility] Conrado Victor MD 03/02/2015 Office visit Conrado Victor MD 02/12/2015 Office visit Kasi Colon DO 09/09/2014 Office visit Kasi Colon DO 02/24/2014 Office visit Conrado Victor MD 12/30/2013 Office visit Conrado Victor MD 11/25/2013 Office visit Conrado Victor MD 11/14/2013 [facility] Conrado Victor MD 11/04/2013 Office visit Conrado Victor MD 11/04/2013 Office visit Kasi Colon DO 10/21/2013 Office visit Kb Perry MD 10/01/2013 Office visit Kb Perry MD 09/10/2013 Office visit Kasi Colon DO 07/08/2013 Office visit Magda Chen LINE LEAD 02/18/2013 Office visit Kasi Colon DO 10/24/2012 Office visit Kasi Colon DO 10/15/2012 Office visit Kasi Isaiah DO [...]
[2019-08-23] MEDS ORDERED: HYDROmorphone 2 MG/ML VIAL (DILAUDID) ONE (11:41)
--- OUTSIDE RECORDS SUMMARY | 2019-08-23 11:41 | XMS REPORT ---
Author Author Lindsey Victor Organization [facility] oup Address [address] [place], [place] [address] Care Team Providers Care Auto Body Repair Estimator Name Role Phone Conrado Victor PCP Unavailable Allergies and Adverse Reactions Name [...] tablet by oral route twi ce daily Tri-Linyah 0.18/0.215/0.25 mg-35 mcg (28) oral tablet [...] tablets,dose pack 07/13/2010 09/23/2010 take as directed xjqivoof-wyzroyffe-OZ 3.5-10,000-10 mg-unit-mg/mL opht halmic drops,suspension 07/13/2010 09/23/2010 [...] oral route every 4 hours as needed Contrave 8-90 mg oral tablet extended release [...] HC BMI BSA BMI Percentile O2 Sat(%) 03/02/2015 10:30:00 AM 116 mmHg 84 mmHg [...] Reviewed 01/14/2011 12:00 AM Bicillin CR 1.2 [facility]#[id number] Clini c Reviewed 02/12/2015 12:00 AM COMPLETE [...] 10:30AM Ulcerative colitis Mar 02 2015 10:30AM Payers Insurance Name Company Name Plan Name Plan Number Policy Number Quirino cy Group Number Start Date Bcbs [facility] [place] [id number] 2014 [employer] Financial Assistance [employer] [facility] 50 percent clinics June Early Detection Works Early Detection Works [id number] [phone] Friday, August 17, 2012 History of Encounters Visit Date Visit Type Provider 03/02/2015 Office visit Conrado Victor MD 02/12/2015 Office visit Kasi Colon DO 09/09/2014 Office visit Kasi Colon DO 02/24/2014 Office visit Conrado Victor MD 12/30/2013 Office visit Conrado Victor MD 11/25/2013 Office visit Conrado Victor MD 11/14/2013 [facility] Conrado Victor MD 11/04/2013 Office visit Conrado Victor MD 11/04/2013 Office visit Kasi Colon DO 10/21/2013 Office visit Kb Perry MD 10/01/2013 Office visit Kb Perry MD 09/10/2013 Office visit Kasi Colon DO 07/08/2013 Office visit Magda Chen APRN 02/18/2013 Office visit Kasi Colno DO 10/24/2012 Office visit Kasi Colon DO 10/15/2012 Office visit Kasi Colon DO 06/21/2012 Office visit Kasi Colon DO 04/20/2012 Office visit Kasi Colon DO 01/11/2012 Office visit Kasi Colon DO 11/29/2011 Office visit Kasi Colon DO 09/30/2011 Office visit Kasi Colon DO 07/04/2011 Office visit Kasi Colon DO 05/24/2011 Office visit Kasi Colon DO 03/18/2011 Voided Kasi Leongte DO 01/14/2011 Office visit Meenakshi WEINBERG 11/02/2010 [...]
--- OUTSIDE RECORDS SUMMARY | 2019-08-23 11:41 | XMS REPORT ---
Author Author Lindsey Colon Organization [facility] oup Address [address] [place], [place] [address] Care Team Providers Care Used Car Sales Supervisor Name Role Phone Kasi Colon PCP Unavailable [...] tablets,dose pack 07/13/2010 09/23/2010 take as directed litkhzri-evrzljydi-DJ 3.5-10,000-10 mg-unit-mg/mL opht halmic drops,suspension 07/13/2010 09/23/2010 [...] once daily for 30 days "did not moss picker" gentamicin 0.3 % ophthalmic drops 01/28/2016 [...] 12:00 AM Bicillin CR, 1.2 million units [facility]# 6079 3-600-10 Reviewed 11/30/2015 12:00 AM [...] Reviewed 01/14/2011 12:00 AM Bicillin CR 1.2 [facility]#[id number] Clini c Reviewed 02/12/2015 12:00 AM COMPLETE [...] Quirino cy Group Number Start Date [facility]BS [facility] [id number] 2014 [employer] Financial Assistance [employer] [facility] Gio [address] [facility] June Early Detection Works Early Detection Works [id number] [phone] Friday, August 17, 2012 History of Encounters Visit Date Visit Type Provider 02/24/2016 Office visit Kasi Colon DO 11/30/2015 Office visit Kasi Colon DO 11/24/2015 Office visit Conrado Victor MD 05/13/2015 Office visit Magda Chen APRN 04/13/2015 Office visit Magda Chen SENIOR COURTROOM CLERK 03/23/2015 Office visit Conrado Victor MD 03/13/2015 Hospital Conrado Victor MD 03/02/2015 Office visit Conrado Victor MD 02/12/2015 Office visit Kasi Isaiah DO 09/09/2014 Office visit Kasi Isaiah DO 02/24/2014 Office visit Conrado Victor MD 12/30/2013 Office visit Conrado Victor MD 11/25/2013 Office visit Conrado Victor MD 11/14/2013 [facility] Conrado Victor MD 11/04/2013 Office visit Conrado Victor MD 11/04/2013 Office visit Kasi Isaiah DO 10/21/2013 Office visit Kb Perry MD 10/01/2013 Office visit Kb Perry MD 09/10/2013 Office visit Kasi Isaiah DO 07/08/2013 Office visit Magda Chen SENIOR COURTROOM CLERK 02/18/2013 Office visit Kasi Isaiah DO [...]
--- OUTSIDE RECORDS SUMMARY | 2019-08-23 11:42 | XMS REPORT ---
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" gentamicin 0.3 % ophthalmic drops 01/28/2016 02/05/2016 [...] AM Bicillin CR, 1.2 million units [facility]# 6079 3-600-10 Reviewed 11/30/2015 12:00 [...] 01/14/2011 12:00 AM Bicillin CR 1.2 [facility]#[id number] Clini c Reviewed 02/12/2015 12:00 AM COMPLETE [...] Quirino cy Group Number Start Date [facility]BS [facility] [id number] 2014 [employer] Financial Assistance [employer] [facility] 50 percent clinics June Early Detection Works Early Detection Works [phone] Friday, August 17, 2012 History of [...] Office visit Ji Victor MD 03/13/2015 [facility] Ji Victor MD 03/02/2015 Office [...] Isaiah DO 07/08/2013 Office visit Magda Chen MAGNETIC TAPE TYPEWRITER OPERATOR 02/18/2013 Office visit Kasi Isaiah DO 10/24/2012 [...] Jerilyn Colindres PA 04/22/2009 Office visit Meenakshi Sinhg PA 04/07/2009 Office visit Jerilyn WEINBERG 03/03/2009 Office visit Kasi Colon DO 02/23/2009 Office visit Jitendra Kerns MD 02/18/2009 Surgery Jitendra Kerns MD 02/16/2009 Surgery Jitendra Kerns MD 02/06/2009 Surgery Jitendra Kerns MD 02/05/2009 Office visit Jitendra Kerns MD
--- OUTSIDE RECORDS SUMMARY | 2019-08-23 11:42 | XMS REPORT ---
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" Problem List Description Status Onset Anxiety disorder [...] [facility]# 6079 3-600-10 Reviewed 11/24/2015 12:[address] [...] CR 1.2 [facility]#[id number] Clini c Reviewed 02/12/2015 12:00 AM COMPLETE [...] Quirino cy Group Number Start Date BCBS [facility] [id number] We 2014 [employer] Financial Assistance [employer] [facility] 50 percent [facility] June Early Detection Works Early Detection Works [phone] Friday, August 17, 2012 History of Encounters Visit Date Visit Type Provider 11/30/2015 Office visit Kasi Colon DO 11/24/2015 Office visit Conrado Victor MD 05/13/2015 Office visit Magda Chen APRN 04/13/2015 Office visit Magda Chen APRN 03/23/2015 Office visit Conrado Victor MD 03/13/2015 [facility] Conrado Victor MD 03/02/2015 Office visit Conrado Victor MD 02/12/2015 Office visit Kasi Colon DO 09/09/2014 Office visit Kasi Colon DO 02/24/2014 Office visit Conrado Victor MD 12/30/2013 Office visit Conrado Victor MD 11/25/2013 Office visit Conrado Victor MD 11/14/2013 [facility] Conrado Victor MD 11/04/2013 Office visit Conrado Victor MD 11/04/2013 Office visit Kasi Colon DO 10/21/2013 Office visit Kb Perry MD 10/01/2013 Office visit Kb Perry MD 09/10/2013 Office visit Kasi Colon DO 07/08/2013 Office visit Magda Chen MANAGEMENT TRAINEE MARKETING 02/18/2013 Office visit Kasi Colon DO 10/24/2012 [...] visit Meenakshi WEINBERG 04/07/2009 Office visit Jerilyn EWINBERG 03/03/2009 Office visit Kasi Colon DO 02/23/2009 Office visit Jitendra Kerns MD 02/18/2009 Surgery Jitendra Kerns MD 02/16/2009 Surgery Jitendra Kerns MD 02/06/2009 Surgery Jitendra Kerns MD 02/05/2009 Office visit Jitendra Kerns MD
--- OUTSIDE RECORDS SUMMARY | 2019-08-23 11:43 | XMS REPORT ---
Author Lindsey Merlos Organization [facility] Address [address] [place], [place] [address] Care Team Providers Care Security Systems Manager Name Role Phone Kasi Colon PCP Unavailable [...] tablet TAKE 1 TABLET BY MOUTH DAILY amoxicillin-pot clavulanate 500-125 mg oral tablet 06/15/2016 06/25/2016 take 1 tablet by oral route every 12 hours for 10 days fluticasone 50 mcg/actuation nasal spray,suspension 06/15/2016 inhale 1 spray (50 mcg) in each nostril by intranasal route 2 times per day prednisone 20 mg oral tablet 06/15/2016 sirena e 1 tablet (20 mg) by oral route once daily Name Start [...] tablets,dose pack 07/13/2010 09/23/2010 take as directed xvztpfdq-bdphyppca-AG 3.5-10,000-10 mg-unit-mg/mL opht halmic drops,suspension 07/13/2010 09/23/2010 [...] once daily for 30 days "didn't work" Problem List Description Status Onset Anxiety Disorder Active Depressive Disorder Active Colitis Active Abdominal pain Active Colonic Polyps, Personal History of Active 2009 Ulcerative colitis Active 09/09/2014 Nicotine addiction Active 12/06/2015 Vital Signs Date Time BP-Sys(mm[Hg] BP-Yesenia(mm[Hg]) HR(bpm) RR(rpm) Temp WT HT HC BMI BSA BMI Percentile O2 Sat(%) 06/15/2016 9:44:00 AM 128 mmHg 72 mmHg [...] CR 1.2 [facility]#[id number] Clini c Reviewed 02/12/2015 12:00 AM COMPLETE [...] recurrence not specified Ja n 2016 9:46AM Payers Insurance Name Company Name Plan Name Plan Number Policy Number Quirino cy Group Number Start Date BCBS [facility] [place] [id number] We 2014 [employer]iaoju Financial Assistance [employer] [facility] 50 percent [facility] June Early Detection Works Early Detection Works [id number] [phone] Friday, August 17, 2012 History of Encounters Visit Date Visit Type Provider 06/15/2016 Office visit Kasi Isaiah DO 05/02/2016 Office visit Kasi Isaiah DO 02/24/2016 Office visit Kasi Isaiah DO 11/30/2015 Office visit Kasi Isaiah DO 11/24/2015 Office visit Conrado Victor MD 05/13/2015 Office visit Magda Chen EDUCATIONAL PARAPROFESSIONAL 04/13/2015 Office visit Magda Chen EDUCATIONAL PARAPROFESSIONAL 03/23/2015 Office visit Conrado Victor MD 03/13/2015 [facility] Conrado Victor MD 03/02/2015 Office visit Conrado Victor MD 02/12/2015 Office visit Kasi Isaiah DO 09/09/2014 Office visit Kasi Isaiah DO 02/24/2014 Office visit Conrado Victor MD 12/30/2013 Office visit Conrado Victor MD 11/25/2013 Office visit Conrado Victor MD 11/14/2013 [facility] Conrado Victor MD 11/04/2013 Office visit Conrado Victor MD 11/04/2013 Office visit Kasi Isaiah DO 10/21/2013 Office visit Kb Perry MD 10/01/2013 Office visit Kb Perry MD 09/10/2013 Office visit Kasi Isaiah DO 07/08/2013 Office visit Magda Chen EDUCATIONAL PARAPROFESSIONAL 02/18/2013 Office visit Kasi Isaiah DO 10/24/2012 [...]
--- OUTSIDE RECORDS SUMMARY | 2019-08-23 11:43 | XMS REPORT ---
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" gentamicin 0.3 % ophthalmic drops 01/28/2016 [...] HC BMI BSA BMI Percentile O2 Sat(%) 11/28/2016 11:12:00 AM 108 mmHg 74 mmHg [...] 12:00 AM Bicillin CR, 1.2 million units [facility]# 6079 3-600-10 Reviewed 11/30/2015 12:00 AM COMPLETE [...] Reviewed 01/14/2011 12:00 AM Bicillin CR 1.2 [facility]#[id number] Clini c Reviewed 02/12/2015 12:00 AM COMPLETE [...] (generalized anxiety disorder) Stable J 2016 11:13AM Payers Insurance Name Company Name Plan Name Plan Number Policy Number Quirino cy Group Number Start Date BCBS Bcbs Of [place] [id number] 2014 [employer] Financial Assistance [employer]off Fin ancial [facility] 50 percent clinics June Early Detection Works Early Detection Works [id number] [phone] Friday, August 17, 2012 History of Encounters Visit Date Visit Type Provider 11/28/2016 Office visit JI WEINBERG 11/01/2016 Office [...] 03/23/2015 Office visit Ji Victor MD 03/13/2015 [facility] Ji Victor MD 03/02/2015 Office visit Ji [...] Kasi Isaiah DO 05/24/2011 Office visit Kasi Arshadhite DO [...]
--- OUTSIDE RECORDS SUMMARY | 2019-08-23 11:44 | XMS REPORT ---
Author Author Lindsey Colon Organization [facility] Address [address] [place], [place] [address] Care Team Providers Care Chief Of Hospital Medicine Name Role Phone Kasi Colon PCP Unavailable [...] tablets,dose pack 07/13/2010 09/23/2010 take as directed oxdqqvms-mhxvveros-HK 3.5-10,000-10 mg-unit-mg/mL opht halmic drops,suspension 07/13/2010 09/23/2010 [...] once daily for 30 days "did not brick picker" gentamicin 0.3 % ophthalmic drops 01/28/2016 [...] CR, 1.[address] [facility]# 6079 3-600-10 Reviewed 11/30/2015 12:00 AM COMPLETE [...] AM Bicillin CR 1.[address] [facility]#[id number] Clini c Reviewed 02/12/2015 12:00 AM COMPLETE [...] Date BCBS [facility] [id number] 2014 [employer]Way Financial Assistance nWay Fin ancial [place] 50 percent clinics June Early Detection Works Early Detection Works [phone] Friday, August 17, 2012 History of Encounters Visit Date Visit Type Provider 02/24/2016 Office visit Kasi Colon DO 11/30/2015 Office visit Kasi Colon DO 11/24/2015 Office visit Conrado Victor MD 05/13/2015 Office visit Magda Gustavo ILLUMINATOR 04/13/2015 Office visit Magda Chen ILLUMINATOR 03/23/2015 Office visit Conrado Victor MD 03/13/2015 Hospital Conrado Victor MD 03/02/2015 Office visit Conrado Victor MD 02/12/2015 Office visit Kasi Colon DO 09/09/2014 Office visit Kasi Colon DO 02/24/2014 Office visit Conrado Victor MD 12/30/2013 Office visit Conrado Victor MD 11/25/2013 Office visit Conrado Victor MD 11/14/2013 [facility] Conrado Victor MD 11/04/2013 Office visit Conrado Victor MD 11/04/2013 Office visit Kasi Isaiah DO 10/21/2013 Office visit Kb Perry MD 10/01/2013 Office visit Kb Perry MD 09/10/2013 Office visit Kasi Isaiah DO 07/08/2013 Office visit Magda Chen ILLUMINATOR 02/18/2013 Office visit Kasi Isaiah DO 10/24/2012 [...]
--- OUTSIDE RECORDS SUMMARY | 2019-08-23 11:44 | XMS REPORT ---
Author Author Lindsey Colon Organization [facility] Address [address] [place], [place] [address] Care Team Providers Care Control Tower Operator Name Role Phone Kasi Colon PCP Unavailable [...] CHEW OR CRUSH. ADMINISTER WITH A MEAL. sertraline 50 mg oral tablet 02/24/2016 sirena e 0.5 tablet (25 mg) by oral route once daily for 6 days then 1 tablet (50 mg) once a day Name Start Date Expiration Date [...] tablets,dose pack 07/13/2010 09/23/2010 take as directed tmardfok-bjjokpgam-JW 3.5-10,000-10 mg-unit-mg/mL opht halmic drops,suspension 07/13/2010 09/23/2010 [...] once daily for 30 days "did not lemon picker" gentamicin 0.3 % ophthalmic drops 01/28/2016 [...] 12:00 AM Bicillin CR, 1.[address] [facility]# 6079 3-600-10 Reviewed 11/24/2015 12:[address] [...] 02/24/2016 12:00 AM TB INTRADERMAL TEST Reviewed 01/15/2012 12:00 AM DRAINAGE OF SKIN [...] Reviewed 01/14/2011 12:00 AM Bicillin CR [address].2 [facility]#[id number] Clini c Reviewed 02/12/2015 12:00 AM COMPLETE [...] 10:07AM Cloudy urine Feb 24 2016 10:07AM Payers Insurance Name Company Name Plan Name Plan Number Policy Number Quirino cy Group Number Start Date [id number] 2014 Slidely Financial Assistance Slidely [facility] Gio 50 percent [facility] June Early Detection Works Early Detection Works [id number] Friday, August 17, 2012 History of [...] Kasi Isaiah DO 10/27/2009 Office visit Kasi Leongte DO 08/27/2009 Nurse visit Jerilyn WEINBERG 08/27/2009 [...]
--- OUTSIDE RECORDS SUMMARY | 2019-08-23 11:45 | XMS REPORT ---
Author Author Lindsey Colon Organization [facility] Address [address] [place], [place] [address] Care Team Providers Care Traveling Sales Representative Name Role Phone Kasi Colon PCP [...] tablets,dose pack 07/13/2010 09/23/2010 take as directed zcyikokm-kelqdanhr-DR 3.5-10,000-10 mg-unit-mg/mL opht halmic drops,suspension 07/13/2010 09/23/2010 [...] once daily for 30 days "did not filler picker" Problem List Description Status Onset Anxiety [...] 12:00 AM Bicillin CR, 1.2 million units [facility]# 6079 3-600-10 Reviewed 11/24/2015 12:[address] [...] Reviewed 01/14/2011 12:00 AM Bicillin CR 1.2 [facility]#[id number] Clini c Reviewed 02/12/2015 12:00 AM COMPLETE [...] Number Start Date BCBS Bcbs Of [place] [id number] Yonis 2014 [place] Financial Assistance [employer] [facility] 50 percent [facility] June Early Detection Works Early Detection Works [id number] [phone] Friday, August 17, 2012 History of Encounters Visit Date Visit Type Provider 11/30/2015 Office visit Kasi Colon DO 11/24/2015 Office visit Conrado Victor MD 05/13/2015 Office visit Magda Chen MALARIOLOGIST 04/13/2015 Office visit Magda Chen MALARIOLOGIST 03/23/2015 Office visit Conrado Victor MD 03/13/2015 [facility] Conrado Victor MD 03/02/2015 Office visit Conrado Victor MD 02/12/2015 Office visit Kasi Colon DO 09/09/2014 Office visit Kasi Colon DO 02/24/2014 Office visit Conrado Victor MD 12/30/2013 Office visit Conrado Victor MD 11/25/2013 Office visit Conrado Victor MD 11/14/2013 [facility] Conrado Victor MD 11/04/2013 Office visit Conrado Victor MD 11/04/2013 Office visit Kasi Colon DO 10/21/2013 Office visit Kb Perry MD 10/01/2013 Office visit Kb Perry MD 09/10/2013 Office visit Kasi Colon DO 07/08/2013 Office visit Magda Chen MALARIOLOGIST 02/18/2013 Office visit Kasi Colon DO 10/24/2012 Office visit Kasi Colon DO 10/15/2012 Office visit Kasi oClon DO 06/21/2012 Office visit Kasi Colon DO 04/20/2012 Office visit Kasi Leongte DO 01/11/2012 Office visit Kasi Isaiah DO 11/29/2011 Office visit Kasi Isaiah DO 09/30/2011 Office visit Kasi Isaiah DO 07/04/2011 Office visit Kasi Isaiah DO 05/24/2011 Office visit Kasi Colon DO 03/18/2011 Voided Kasi Arshadhite DO 01/14/2011 Office visit Meenakshi WEINBERG 11/02/2010 [...]
--- OUTSIDE RECORDS SUMMARY | 2019-08-23 11:45 | XMS REPORT ---
Author Lindsey Merlos Organization [facility] Address [address] [place], [place] [address] Care Team Providers Care Marking Clerk Name Role Phone Kasi Colon PCP [...] week then 1 tablet daily as needed Contrave 8-90 mg oral tablet extended release 07/04/2016 take 1 tab by mouth in am 7 days 1 tab BID 7 days 2 tabs am and 1 tab pm 7 days 2 tabs BID Name Start Date Expiration Date SIG Comments [...] tablets,dose pack 07/13/2010 09/23/2010 take as directed pfaiptoz-zyshkvqff-CM 3.5-10,000-10 mg-unit-mg/mL opht halmic drops,suspension 07/13/2010 09/23/2010 [...] once daily for 30 days "did not cloth picker" gentamicin 0.3 % ophthalmic drops 01/28/2016 [...] 12:00 AM Bicillin CR, 1.2 million units [facility]# 6079 3-600-10 Reviewed 11/30/2015 12:00 AM COMPLETE [...] Reviewed 01/14/2011 12:00 AM Bicillin CR 1.2 [facility]#[id number] Clini c Reviewed 02/12/2015 12:00 AM COMPLETE [...] Quirino cy Group Number Start Date [id number] 2014 [employer] Financial Assistance [employer] Fin ancial [employer] 50 percent clinics June Early Detection Works Early Detection Works [id number] [phone] Friday, August 17, 2012 History of Encounters Visit Date Visit Type Provider 07/04/2016 Office visit Kasi Colon DO 06/15/2016 Office visit Kasi Colon DO 05/02/2016 Office visit Kasi Colon DO 02/24/2016 Office visit Kasi Colon DO 11/30/2015 Office visit Kasi Colon DO 11/24/2015 Office visit Conrado Victor MD 05/13/2015 Office visit Magda Chen APRN 04/13/2015 Office visit Magda Chen APRN 03/23/2015 Office visit Conrado Victor MD 03/13/2015 [facility] Conrado Victor MD 03/02/2015 Office visit Conrado Victor MD 02/12/2015 Office visit Kasi Colon DO 09/09/2014 Office visit Kasi Colon DO 02/24/2014 Office visit Conrado Victor MD 12/30/2013 Office visit Conrado Victor MD 11/25/2013 Office visit Conrado Victor MD 11/14/2013 [facility] Conrado Victor MD 11/04/2013 Office visit Conrado Victor MD 11/04/2013 Office visit Kasi Colon DO 10/21/2013 Office visit Kb Perry MD 10/01/2013 Office visit Kb Perry MD 09/10/2013 Office visit Kasi Colon DO 07/08/2013 Office visit Magda Chen SENIOR TERADATA DEVELOPER 02/18/2013 Office visit Kasi Colon DO [...]
--- OUTSIDE RECORDS SUMMARY | 2019-08-23 11:46 | XMS REPORT ---
Author Author Lindsey Colon Organization [facility] Address [address] [place], [place] [address] Care Team Providers Care Enrollment Nurse Name Role Phone Kasi Colon PCP Unavailable [...] tablets,dose pack 07/13/2010 09/23/2010 take as directed iiiusisz-sddrjylsl-PL 3.5-10,000-10 mg-unit-mg/mL opht halmic drops,suspension 07/13/2010 09/23/2010 [...] Reviewed 01/14/2011 12:00 AM Bicillin CR 1.2 [facility]#[id number] Clini c Reviewed 02/12/2015 12:00 AM COMPLETE [...] Quirino cy Group Number Start Date [facility] [id number] 2014 [employer]um Financial Assistance [employer] [facility] 50 percent [facility] June Early Detection Works Early Detection Works [id number] [phone] Friday, August 17, 2012 History of [...] Kb Perry MD 09/10/2013 Office visit Kasi Cloon DO 07/08/2013 Office visit Magda Chen APRN 02/18/2013 Office visit Kasi Colon DO 10/24/2012 Office visit Kasi Colon DO 10/15/2012 Office visit Kasi Colon DO 06/21/2012 Office visit Kasi Colon DO 04/20/2012 Office visit Kasi Colon DO 01/11/2012 Office visit Kasi Colon DO 11/29/2011 Office visit Kasi Colno DO 09/30/2011 Office visit Kasi Colon DO [...]
--- OUTSIDE RECORDS SUMMARY | 2019-08-23 11:46 | XMS REPORT | Continuity of Care Document ---
Author Organization Unknown Address Unknown Phone Unavailable Allergies Active Description Code Type Severity Reaction Onset Reported/Identified Relationship to Patient Clinical Status Yes No Allergy Information Available [id number] Drug Allergy Unknown N/A 020 Yes No Known Drug Allergies [id number] Drug Allergy Unknown N/A 08/21/2019 Medications There is no data. Problems There is no data. Procedures There is no data. Results Test Result Range Complete blood count (CBC) with automate d white blood cell (WBC) differential - 08/21/19 12:28 Blood leukocytes automated count (number/volume) 12.5 10*3/uL 4.3-11.0 Blood erythrocytes automated count (number/volume) 4.66 10*6/uL 4.35-5.85 Venous blood hemoglobin measurement (mass/volume) 14.2 g/dL 11.5-16.0 Blood hematocrit (volume fraction) 42 % 35-52 Automated erythrocyte mean corpuscular volume 90 [ foz_us] 80-99 Automated erythrocyte mean corpuscular h emoglobin (mass per erythrocyte) 31 pg 25-34 Automated erythrocyte mean corpuscular h emoglobin concentration measurement (mass/volume) 34 g/dL 32-36 Automated erythrocyte distribution width ratio 13. 1 % 10.0- 14.5 Automated blood platelet count (count/volume) 279 10*3/uL 130-400 Automated blood platelet mean volume measurement 9.7 [foz_us] 7.4-10.4 Automated blood neutrophils/100 leukocytes 67 % 42-75 Automated blood lymphocytes/100 leukocytes 25 % 12-44 Blood monocytes/100 leukocytes 6 % 0-12 Automated blood eosinophils/100 leukocytes 1 % 0-10 Automated blood basophils/100 leukocytes 0 % 0-10 Blood neutrophils automated count (number/volume) 8.4 10*3 1.8-7.8 Blood lymphocytes automated count (number/volume) 3.2 10*3 1.0-4.0 Blood monocytes automated count (number/volume) 0. 8 10*3 0.0-1.0 Automated eosinophil count 0.2 10*3/uL 0 .0-0.3 Automated blood basophil count (count/volume) 0.1 10*3/uL 0.0-0.1 Whole blood basic metabolic panel - 08/03 01/22 12:28 Serum or plasma sodium measurement (moles/volume) 139 mmol/L 135-145 Serum or plasma potassium measurement (moles/volume) 3.7 mmol/L 3.6-5.0 Serum or plasma chloride measurement (moles/volume) 108 mmol/L 98-107 Carbon dioxide 21 mmol/L 21-32 Serum or plasma anion gap determination (moles/volume) 10 mmol/L 5-14 Serum or plasma urea nitrogen measurement (mass/volume ) 8 mg/dL 7-18 Serum or plasma creatinine measurement (mass/volume) 0.76 mg/dL 0.60-1.30 Serum or plasma urea nitrogen/creatinine mass ratio 11 NRG Serum or plasma creatinine measurement w ith calculation of estimated glomerular filtration rate > NRG Serum or plasma glucose measurement (mass/volume) 125 mg/dL 70-105 Serum or plasma calcium measurement (mass/volume) 8.8 mg/dL 8.5-10.1 Encounters ACCT No. Visit Date/Time Discharge Status Pt. Type Provider Facility Loc./Unit Complaint [id number] 07/24/2019 11:20:35 07/24/2019 23:59: 59 CLS Outpatient Polo Rachael J [id number] 07/08/2019 10:02:16 07/08/2019 23:59: 59 CLS Outpatient Kasi Colon [id number] 06/14/2019 10:05:25 06/14/2019 23:59: 59 CLS Outpatient Kasi Colon [id number] 05/31/2019 11:08:33 05/31/2019 23:59: 59 CLS Outpatient Kasi Colon [id number] 03/20/2019 10:00:05 03/20/2019 23:59: 59 CLS Outpatient Kasi Colon [id number] 01/14/2019 11:31:16 01/14/2019 23:59: 59 CLS Outpatient Kasi Colon [id number] 12/24/2018 13:39:35 12/24/2018 23:59: 59 CLS Outpatient Arash Ashfordmy Lenora [id number] 11/16/2018 11:59:38 11/16/2018 23:59: 59 CLS Outpatient Jake Solo [id number] 10/31/2018 08:56:50 10/31/2018 23:59: 59 CLS Outpatient Kasi Colon [id number] 08/28/2018 09:42:37 08/28/2018 23:59: 59 CLS Outpatient IsaiahKasi santana [id number] 07/11/2018 10:52:44 07/11/2018 23:59: 59 CLS Outpatient IsaiahKasi santana [id number] 06/19/2018 09:41:45 06/19/2018 23:59: 59 CLS Outpatient IsaiahKasi santana [id number] 05/11/2018 09:37:29 05/11/2018 23:59: 59 CLS Outpatient IsaiahKasi santana [id number] 04/09/2018 10:04:42 04/09/2018 23:59: 59 CLS Outpatient IsaiahKasi santana [id number] 03/11/2018 14:20:08 03/11/2018 23:59: 59 CLS Outpatient Lorri Cameron [id number] 12/25/2017 09:39:12 12/25/2017 23:59: 59 CLS Outpatient IsaiahKasi santana [id number] 12/11/2017 10:46:07 12/11/2017 23:59: 59 CLS Outpatient CONRADO ROSA [id number] 09/12/2017 11:06:08 09/12/2017 23:59: 59 CLS Outpatient CONRADO ROSA [id number] 07/18/2017 09:33:54 07/18/2017 23:59: 59 CLS Outpatient CONRADO ROSA [id number] 03/14/2017 10:20:17 03/14/2017 23:59: 59 CLS Outpatient IsaiahWalt santanaa [id number] 01/31/2017 14:17:27 01/31/2017 23:59: 59 CLS Outpatient CONRADO ROSA [id number] 11/28/2016 09:57:27 11/28/2016 23:59: 59 CLS Outpatient CONRADO ROSA [id number] 11/01/2016 10:23:56 11/01/2016 23:59: 59 CLS Outpatient CONRADO ROSA [id number] 08/16/2016 14:58:37 08/16/2016 23:59: 59 CLS Outpatient IsaiahKasi [id number] 07/04/2016 10:29:14 07/04/2016 23:59: 59 CLS Outpatient IsaiahKasi [id number] 06/15/2016 10:39:32 06/15/2016 23:59: 59 CLS Outpatient IsiaahKasi [id number] 05/02/2016 15:36:54 05/02/2016 23:59: 59 CLS Outpatient IsaiahKasi [id number] 02/24/2016 10:58:38 02/24/2016 23:59: 59 CLS Outpatient IsaiahKasi [id number] 11/30/2015 13:54:31 11/30/2015 23:59: 59 CLS Outpatient IsaiahKasi [id number] 05/13/2015 15:42:24 05/13/2015 23:59: 59 CLS Outpatient WalkerMagda [id number] 04/13/2015 16:03:08 04/13/2015 23:59: 59 CLS Outpatient Walker Magda [id number] 03/23/2015 11:56:01 03/23/2015 23:59: 59 CLS Outpatient [place], Conrado [id number] 03/18/2015 07:14:30 03/18/2015 23:59: 59 CLS Outpatient [place] [id number] 03/02/2015 11:10:26 03/02/2015 23:59: 59 CLS Outpatient [place], Conrado [id number] 02/12/2015 16:05:45 02/12/2015 23:59: 59 CLS Outpatient IsaiahKasi [id number] 09/09/2014 09:22:09 09/09/2014 23:59: 59 CLS Outpatient Isaiah, Kasi [id number] 02/24/2014 12:37:47 02/24/2014 23:59: 59 CLS Outpatient [place], Conrado [id number] 12/30/2013 14:06:12 12/30/2013 23:59: 59 CLS Outpatient [place], Conrado [id number] 11/25/2013 11:29:07 11/25/2013 23:59: 59 CLS Outpatient [place], Conrado [id number] 11/20/2013 07:11:43 11/20/2013 23:59: 59 CLS Outpatient [place], Conrado [id number] 11/04/2013 11:22:00 11/04/2013 23:59: 59 CLS Outpatient Conrado Victor [id number] 11/04/2013 10:16:10 11/04/2013 23:59: 59 CLS Outpatient Kasi Colon [id number] 10/21/2013 10:21:41 10/21/2013 23:59: 59 CLS Outpatient Kb Perry [id number] 10/01/2013 09:53:20 10/01/2013 23:59: 59 CLS Outpatient Kb Perry [id number] 07/08/2013 09:18:37 07/08/2013 23:59: 59 CLS Outpatient Magda Chen [id number] 08/21/2019 12:01:00 020 14:03:00 DIS Outpatient SALVATORE FISHER, CONRADO Dimas [facility] PREOP CHRONIC OTITIS MEDIA, N ROE MASS [id number] 08/21/2019 12:05:00 020 13:35:00 DIS Outpatient CONRADO CHASE MD [facility] RAD NASAL MASS [id number] 08/23/2019 13:15:00 P EN Preadmit SALVATORE FISHER, CONRADO Dimas [facility] SDC CHRONIC OTITIS MEDIA, NASAL MASS
--- OUTSIDE RECORDS SUMMARY | 2019-08-23 11:46 | XMS REPORT ---
Author Author Lindsey Victor Organization [facility] Address [address] [place], [place] [address] Care Team Providers Care Daycare Teacher Name Role Phone Conrado Victor PCP Unavailable [...] tablets,dose pack 07/13/2010 09/23/2010 take as directed xsdlblre-mdykwvlcz-HO 3.5-10,000-10 mg-unit-mg/mL opht halmic drops,suspension 07/13/2010 09/23/2010 [...] Bicillin CR 1.2 [facility]#[id number] Clini c Reviewed 02/12/2015 12:00 AM COMPLETE [...] 11:28AM Ulcerative colitis Mar 23 2015 11:28AM Payers Insurance Name Company Name Plan Name Plan Number Policy Number Quirino cy Group Number Start Date Bcbs Bcbs [facility] [id number] 2014 [employer]ot Financial Assistance Antidot [facility] ancial Gio 50 percent clinics June Early Detection Works Early Detection [employer] [id number] [phone] Friday, August 17, 2012 History of Encounters Visit Date Visit Type Provider 03/23/2015 Office visit Conrado Victor MD 03/13/2015 [facility] Conrado Victor MD 03/02/2015 Office visit Conrado Victor MD 02/12/2015 Office visit Kasi Colon DO 09/09/2014 Office visit Kasi Colon DO 02/24/2014 Office visit Conrado Victor MD 12/30/2013 Office visit Conrado Victor MD 11/25/2013 Office visit Conrado Victor MD 11/14/2013 [facility] Conrado Victor MD 11/04/2013 Office visit Conrado Victor MD 11/04/2013 Office visit Kasi Colon DO 10/21/2013 Office visit Kb Perry MD 10/01/2013 Office visit Kb Perry MD 09/10/2013 Office visit Kasi Colon DO 07/08/2013 Office visit Magda Chen EMERY GRINDER 02/18/2013 Office visit Kasi Colon DO 10/24/2012 Office visit Kasi Colon DO 10/15/2012 Office visit Kasi Colon DO 06/21/2012 Office visit Kasi Colon DO 04/20/2012 Office visit Kasi Colon DO 01/11/2012 Office visit Kasi Cooln DO 11/29/2011 Office visit Kasi Leongte DO 09/30/2011 Office visit Kasi Isaiah DO 07/04/2011 Office visit Kasi Isaiah DO 05/24/2011 Office visit Kasi Isaiah DO 03/18/2011 Voided Kasi Isaiah DO 01/14/2011 Office visit Meenakshi Singh PA 11/02/2010 Office visit Kasi Leongte DO 09/23/2010 Office visit Kasi Leongte DO 07/21/2010 Office visit Kasi Leongte DO 07/13/2010 Office visit Kasi Leongte DO 05/25/2010 Office visit Meenakshi Singh PA [...]
--- OUTSIDE RECORDS SUMMARY | 2019-08-23 11:46 | XMS REPORT | CCD ---
Author Author JOSSUE MOYA Organization Unknown Address [address] [facility] [address] [place] [id number] Care Team Providers Care Bead Filler Name Role Phone HANDSHY ER, ZAKI FISHER Attphys HANDSHY ER, ZAKI FISHER Prisurg Vital Signs Unknown or Not Available. Allergies Allergy Code Allergy Type Reaction Status No Known Allergies 0 No known allergies Active Procedures Unknown or Not Available. History of Immunizations Unknown or Not Available. Problems Unknown or Not Available. Results Unknown or Not Available. Medications Unknown or Not Available. Medications Administered Unknown or Not Available. Encounters Encounter Diagnosis Diagnosis Code Start Date NO PROC PATIENT DECISION V642 [id number] Social History Smoking Status Code Start Date End Date Current every day smoker [id number] Patient Decision Aids Unknown or Not Available. Discharge Instructions You were admitted to [facility] on 04/11/2014 with a principal diagnosis of NO PROC PATIENT DECISION. You were discharged from [facility] on 04/11/2014. Should you have any questions prior to discharge, please contact a member of your healthcare team. If you have left the hospital and have any questions, please contact your primary care physician. Chief Complaint and Reason For Visit Chief Complaint Date of Onset NAUSEA VOMITING DIARRHEA Function Status Unknown or Not Available. Plan of Care Unknown or Not Available. Referral/Transition of Care Unknown or Not Available.
[2019-08-23] MEDS ORDERED: GLYCOPYRROLATE 0.2 MG/ML (ROBINUL) 2 ML VIAL ONE (11:56)
[2019-08-23] MEDS ORDERED: NEOSTIGMINE 3 MG/3 ML VIAL ONE (11:56)
[2019-08-23] MEDS ORDERED: SEVOFLURANE (ULTANE) 15 ML INHAL SOLN ONE (11:58)
[2019-08-23] MEDS ORDERED: NS IV 1000 ML 1,000 ML IV SCH (12:04)
--- NOTE | 2019-08-23 12:04 | Progress Note-Post Operative ---
Post-Operative Progess Note Surgeon (s)/[employer] (s) Surgeon JI CHASE MD [employer] n/a Pre-Operative Diagnosis Right ODELL, Nasopharyngeal mass Post-Operative Diagnosis same Post-Op Procedure Note Date of Procedure: Aug 23, 2019 Name of Procedure Performed: Right myr with tube, REmoval of Nasopharyngeal mass Description & Findings Description and Findings: n/a Anesthesia Type get Estimated Blood Loss minimal Packing none. Specimen(s) collected/removed nasopharyngeal mass to pathology fresh JI CHASE MD Aug 23, 2019 12:04
[2019-08-23] MEDS ORDERED: HYDROcodone/APAP 5 MG/325 MG (LORTAB) TAB PO PRN (12:15)
[2019-08-23] MEDS ORDERED: APAP 325 MG/10.15 ML LIQ (TYLENOL) UDC PO PRN ×2 (12:15→12:30)
[2019-08-23] MEDS ORDERED: PROMETHAZINE INJ 25 MG/ML (PHENERGAN) AMP IVP ONE (12:30)
[2019-08-23] MEDS ORDERED: ONDANSETRON 4 MG/2 ML (SDV) Z0FRAN IVP PRN (12:30)
[2019-08-23] MEDS ORDERED: morphine INJ 10 MG/ML 1ML (SYR OR VIAL) IVP ONE (12:30)
[2019-08-23] MEDS ORDERED: MEPERIDINE (DEMEROL) INJ 50 MG/ML IVP ONE (12:30)
--- NOTE | 2019-08-23 13:20 | Anesthesia-General Post-Op ---
General Patient Condition Mental Status/LOC: Same as Preop Cardiovascular: Satisfactory Nausea/Vomiting: Absent Respiratory: Satisfactory Pain: Controlled Complications: Absent Post Op Complications Complications None Follow Up Care/Instructions Patient Instructions None needed. Anesthesia/Patient Condition Patient Condition Patient is doing well, no complaints, stable vital signs, no apparent adverse anesthesia problems. No complications reported per nursing. KIERAN PAYTON CRNA Aug 23, 2019 13:20
[2019-08-23] MEDS ORDERED: CIPR5DRO OP (13:56)
== END 2019-08-23 14:15 | disposition home or self-care (01) ==
LOC: SDC 09:25
PROVIDERS: ATTEND Otolaryngology Otolaryngology/Facial Plastic Surgery
DX: H65.01 Acute serous otitis media, right ear (principal); J34.89 Other specified disorders of nose and nasal sinuses; H69.93 Unspecified Eustachian tube disorder, bilateral; F32.9 Major depressive disorder, single episode, unspecified; K21.9 Gastro-esophageal reflux disease without esophagitis; Z88.8 Allergy status to other drugs, medicaments and biological substances; Z90.49 Acquired absence of other specified parts of digestive tract
CPT/HCPCS: 84703; 87081; 88305